=== PATIENT | female | born 1955 | race Caucasian/White ===

== ENCOUNTER → 2024-04-04 09:53 | Outpatient (REF) | payer MEDICARE, SELFPAY ==
[2024-04-04 12:23] LABS: % Basophils 1.5 % (0-2); % Eosinophils 3.1 % (0-6); % Immature Granulocytes 0.4 % (0-0.5); % Lymphocytes 30.9 % (20.5-51.1); % Neutrophils 52.1 % (42.2-75.2); Absolute Basophils 0.1 10^3/uL (0-0.2); Absolute Eosinophils 0.1 10^3/uL (0-0.7); Absolute Lymphocytes 1.4 10^3/uL (1.2-3.4); Absolute Monocytes 0.6 10^3/uL (0.1-0.6); Absolute Neutrophils 2.4 10^3/uL (1.4-6.5); Hematocrit 37.8 % (37.0-47.0); Hemoglobin 12.8 g/dL (12.0-16.0); Mean Corp Hgb Conc. 33.9 g/dL (33.0-37.0); Mean Corpuscular Hgb 30.9 pg (27.0-31.0); Mean Corpuscular Volume 91.3 fL (81.0-99.0); Mean Platelet Volume 9.2 fL (7.4-10.4); Nucleated Red Blood Cells % 0 %; Platelet Count 282 10^3/uL (130-400); Red Blood Cell Count 4.14 10^6/uL (4.20-5.40); Red Cell Dist. Width 13.7 % (11.5-14.5); White Blood Cell Count 4.6 10^3/uL (4.8-10.8)
[2024-04-04 12:32] LABS: ALT (SGPT) 36 U/L (0-35); AST (SGOT) 49 U/L (14-36); Albumin 4.4 g/dl (3.5-5.0); Alkaline Phosphatase 76 U/L (38-126); Blood Urea Nitrogen 9 mg/dl (7-17); Calcium 9.6 mg/dl (8.4-10.2); Carbon Dioxide 30 mmol/L (22-30); Chloride 93 mmol/L (98-107); Glucose 98 mg/dl (70-99); HDL Cholesterol 90 mg/dl; LDL Cholesterol, Calculated 66 mg/dl; Potassium 4.6 mmol/L (3.5-5.1); Sodium 133 mmol/L (135-145); Total Bilirubin 0.4 mg/dl (0.2-1.3); Total Cholesterol 214 mg/dl (50-199); Total Protein 6.9 g/dl (6.3-8.2); Triglyceride 291 mg/dl (10-149); Very Low Density Lipoprotein 58 mg/dl (0-30); eGFR > 60.00
[2024-04-04 12:49] LABS: Urine Albumin Negative (Neg - Trace); Urine Bilirubin Negative (Negative); Urine Character Clear (Clear); Urine Color Yellow; Urine Glucose Negative (Negative); Urine Ketone Negative (Negative); Urine Leukocyte Negative (Negative); Urine Nitrite Negative (Negative); Urine Occult Blood Negative (Negative); Urine Urobilinogen Negative (Neg - 1+)
[2024-04-04 13:01] LABS: TSH 3.95 uIU/ml (0.47-4.68)
[2024-04-04 14:20] LABS: Glycohemoglobin (HgbA1c) 5.1 % (4.0-5.6)
== END ==
LOC: HWLAB 09:53
PROVIDERS: ATTENDING PHYSICIAN Family Medicine
DX: Z00.00 Encounter for general adult medical examination without abnormal findings (principal); Z86.010 Personal history of colon polyps; R73.01 Impaired fasting glucose
CPT/HCPCS: 36415; 80053; 80061; 81003; 83036; 84443; 85025

== ENCOUNTER 2024-06-29 17:21 | Inpatient (IN) | payer MEDICARE, SELFPAY ==
[2024-06-29] VITALS (9 sets, daily range): BP systolic 111–175; BP diastolic 56–93; BMI 38.0; BMI 36.9
[2024-06-29 12:03] LABS: % Basophils 1.4 % (0-2); % Eosinophils 4.1 % (0-6); % Immature Granulocytes 0.6 % (0-0.5); % Lymphocytes 42.4 % (20.5-51.1); % Neutrophils 40.5 % (42.2-75.2); Absolute Basophils 0.1 10^3/uL (0-0.2); Absolute Eosinophils 0.2 10^3/uL (0-0.7); Absolute Lymphocytes 2.1 10^3/uL (1.2-3.4); Absolute Monocytes 0.5 10^3/uL (0.1-0.6); Hematocrit 37.3 % (37.0-47.0); Hemoglobin 12.5 g/dL (12.0-16.0); Mean Corp Hgb Conc. 33.5 g/dL (33.0-37.0); Mean Corpuscular Hgb 32.1 pg (27.0-31.0); Mean Corpuscular Volume 95.9 fL (81.0-99.0); Nucleated Red Blood Cells % 0 %; Platelet Count 243 10^3/uL (130-400); Red Blood Cell Count 3.89 10^6/uL (4.20-5.40); Red Cell Dist. Width 13.1 % (11.5-14.5); White Blood Cell Count 4.9 10^3/uL (4.8-10.8)
[2024-06-29 12:27] LABS: ALT (SGPT) 105 U/L (0-35); AST (SGOT) 137 U/L (14-36); Albumin 4.4 g/dl (3.5-5.0); Alkaline Phosphatase 68 U/L (38-126); Blood Urea Nitrogen 11 mg/dl (7-17); Calcium 9.2 mg/dl (8.4-10.2); Carbon Dioxide 33 mmol/L (22-30); Chloride 90 mmol/L (98-107); Glucose 105 mg/dl (70-99); Potassium 4.1 mmol/L (3.5-5.1); Sodium 131 mmol/L (135-145); Total Bilirubin 0.2 mg/dl (0.2-1.3); Total Protein 6.8 g/dl (6.3-8.2); eGFR > 60.00
[2024-06-29 12:38] LABS: NT-proBNP 273 pg/ml; Troponin I < 0.012 ng/ml
--- NOTE | 2024-06-29 12:51 | ED.GENMED ---
History of Present Illness
General
Chief Complaint: Cardiac Symptoms
Time Seen by Provider: 06/29/24 12:41
History of Present Illness
History of Present Illness:
Patient is a 69-year-old woman with history of hypertension presenting to the emergency department with shortness of breath. Patient states for the past few weeks has been having dyspnea on exertion orthopnea. She has noticed bilateral lower
extremity edema. She is also noticed a 15 pound weight loss in the past month. No chest pain. No travel history malignancy or hemoptysis. She does not have any known heart problems. No fevers chills cough congestion runny nose.
Past History
Past History
ED Past Medical History: HTN
ED Past Surgical History: Gynecological and Other (hernia)
Social History
Tobacco: Non-smoker
Alcohol: Occasional
Living: with family
Phy Exam
Physical Exam
Physical Exam:
GENERAL: in no acute distress
HEENT: normocephalic, extraocular movements intact, moist oral mucosa
NECK: normal inspection
RESPIRATORY: no respiratory distress, crackles at bases bilaterally
CARDIOVASCULAR: regular rate and rhythm
ABDOMEN/: soft, non-distended, non-tender to palpation, no rebound or guarding
EXTREMITIES: Bilateral lower extremity swelling worse to the right lower extremity
NEUROLOGIC: awake and alert, moves all extremities
SKIN: warm
Course
Orders/Labs/Results
Orders:
Orders
06/29/24 11:37
Electrocardiogram (*1) Urgent
Reason for Study: Chest Pain
EKG- Treatment ONCE
06/29/24 11:51
BNP [NT-proBNP] Urgent
Complete Blood Count/With Diff Urgent
Comprehensive Metabolic Panel Urgent
Troponin I Urgent
06/29/24 12:42
CR Chest - 2 Views Urgent
Comment:
Reason For Exam: sob
06/29/24 12:48
Periph Venous Lwr Ext Rt US [US Periph Venous LOWER Ext RT] Urgent
Comment:
Reason For Exam: r/o dvt
06/29/24 13:01
D-Dimer Urgent
Abnormal Lab Results
06/29/24
11:51
RBC 3.89 L 10^6/uL
(4.20-5.40)
MCH 32.1 H pg
(27.0-31.0)
Immature Gran % 0.6 H %
(0-0.5)
Neutrophils % 40.5 L %
(42.2-75.2)
Monocytes % 11.0 H %
(1.7-9.3)
Sodium 131 L mmol/L
(135-145)
Chloride 90 L mmol/L
(98-107)
Carbon Dioxide 33 H mmol/L
(22-30)
Glucose 105 H mg/dl
(70-99)
AST 137 H U/L
(14-36)
ALT 105 H U/L
(0-35)
06/29/24 11:51
06/29/24 11:51
Vital Signs
Initial and Last Documented VS:
Initial Vital Signs
Temp Pulse Resp BP Pulse Ox
97.9 F 87 16 170/93 97
06/29/24 11:41 06/29/24 11:41 06/29/24 11:41 06/29/24 11:41 06/29/24 11:41
Last Documented Vital Signs
Temp Pulse Resp BP Pulse Ox
97.9 F 80 13 138/78 99
06/29/24 11:41 06/29/24 13:30 06/29/24 13:30 06/29/24 13:02 06/29/24 13:03
MDM/Problems Addressed
Differential Diagnosis Includes:
Patient is a 69-year-old woman presenting to the emergency department dyspnea exertion orthopnea and weight gain. Vitals are notable for hypertension and exam does show crackles at the bases as well as bilateral lower extremity edema worse on the
right side. Differential consists of new onset heart failure versus atypical ACS or pneumonia. With the asymmetrical leg swelling could be DVT. Will check blood work EKG chest x-ray ultrasound.
*Critical Care Note
Total Time (30-74mins, 75-104mins- exclusive of procedures): Not Applicable
Update Note
Update Note:
Blood work negative dimer troponin BNP is not elevated. DVT study negative. Upon ambulation patient to become tachypneic with a drop in her oxygen to 88%. Chest x-ray per my interpretation with no obvious focal opacity and mild cephalization of
her pulmonary vessels. Discussed with hospitalist who accepted patient to their service.
ED Attending Note
-
Portions of this chart may have been created with voice recognition software.� Occasional wrong word or��sound alike� substitutions may have occurred due to the inherent limitations of voice recognition software.
Discharge Plan
Departure
Patient Disposition: Admit
Date of Disposition: 06/29/24
Time of Disposition: 14:46
Presentation/result/management discussed w/ accepting MD/DO: Hospitalist
Discharge Problem:
Shortness of breath
Prescriptions:
No Action
sertraline [Zoloft] 100 MG tablet
150 mg PO DAILY
multivitamin [Daily Multiple] 1 EACH tablet
1 ea PO DAILY
famotidine 40 MG tablet
40 mg PO HS
amlodipine 5 MG tablet
5 mg PO DAILY
oxycodone-acetaminophen 5 MG/325 MG tablet
1 tab PO Q4HPRN PRN (Reason: pain) Qty: 8 0RF
Referrals:
Indigo Esteban DO [Family Provider] -
Interventions
Interventions:
*Risk Screen - Suicide Last Done: 06/29/24 11:43
*General Assessment Last Done: 06/29/24 13:02
*Neglect/Abuse Screening Last Done: 06/29/24 11:43
ED- Fall Risk Assessment Last Done: 06/29/24 13:03
*ED COVID-19 Vaccine History Last Done: 06/29/24 13:02
ED- Pulmonary Assessment Last Done: 06/29/24 13:03
ED- Cardiac Assessment Last Done: 06/29/24 13:03
Discharge Date and Time
Print Language: MARTINIQUAIS
[2024-06-29 13:29] LABS: D-Dimer < 0.27 ug/mlFEU (0.00-0.50)
--- NOTE | 2024-06-29 15:30 | HPS.HSE ---
Family Physician
-
Family Physician: Indigo Esteban
Chief Complaint
-
BARFIELD, orthopnea, nonproductive cough, weight gain
History of Present Illness
69-year-old female complaining of dyspnea on exertion with orthopnea, nonproductive cough over the past few weeks along with bilateral lower extremity edema and 15-18 pound weight gain in the past 2 weeks unintentional. She reports she was a
former alcoholic in her early teens to 20s. She reports she stopped when she had children then picked up drinking at age 60 when her . She reports she is currently drinking 750 mL bottle of wine daily and wakes up in the a.m. with hand
tremors that resolve when she starts drinking alcohol. She states her last drink was last evening 06/28/2024 at 2300. She denies any history of alcohol withdrawal seizures. She denies current headache, sore throat, fever, chills, chest pain,
palpitations, abdominal pain, nausea, vomiting, diarrhea, blood in urine or stool
She has past medical history of hypertension, alcohol abuse, obesity, GERD, anxiety/depression, ex-smoker, gastric bypass osteoarthritis, glaucoma.
Medical History
Past Medical History
Past Medical History: Reports Other
Additional Past Medical History:
hypertension
GERD
gastric bypass
anxiety/depression
ex-smoker
osteoarthritis
glaucoma
Past Surgical History: Reports Other
Additional Past Surgical History:
section x 3
Multiple hernia repairs
Hysterectomy
Appendectomy
Ovarian cyst removal
Gastric bypass
Dental/oral surgery
Social History
Tobacco: Former Smoker (2 to 3 pack/day quit 30 years ago smoked for 30 years)
Alcohol: Daily (750 mL wine)
Drug: None
Personal: (2014)
Living: Alone
Employment: Retired
Family History
Family History: Early CAD (Father [place] age 39 history HTN, sister CAD cardiac stents late 60s) and Other (Mother age 63 CVA multiple, COPD, brother HTN)
Allergies / Home Medications
Allergies reflects when Allergies were last updated in [facility].
Home Medications with original date entered in [facility]
Allergy/Medication List:
Allergies
Allergy/AdvReac Type Severity Reaction Status Date / Time
sulfamethoxazole Allergy Itching Verified 11/23/16 17:32
[From Bactrim]
trimethoprim [From Bactrim] Allergy Itching Verified 11/23/16 17:32
Home Medications
ascorbic acid 30 mg-collagen, hydrolyzed 833.3 mg tablet (Collagen Skin Renewal) 1 tab PO DAILY 06/29/24
duloxetine 60 mg capsule,delayed release (Cymbalta) 60 mg PO DAILY 06/29/24
hydrochlorothiazide 25 mg tablet 25 mg PO DAILY 06/29/24
metoprolol succinate 50 mg tablet,extended release 24 hr (Toprol XL) 50 mg PO DAILY 06/29/24
mirtazapine 15 mg tablet 15 mg PO DAILY 06/29/24
therapeutic multivitamin 1 tab PO DAILY 06/29/24
valsartan 160 mg tablet 160 mg PO DAILY 06/29/24
Review of Systems
-
History Source: Patient and Family (Son at bedside)
A 12 point ROS was completed and negative except as noted: Yes
Constitutional: Reports Weight Gain (15-18 pounds past 2 weeks); Denies Chills
EENT: Denies Sore Throat or Runny Nose
Respiratory: Reports Cough (Nonproductive) and Trouble Breathing (BARFIELD/orthopnea)
Cardiac: Denies Chest Pain, Diaphoresis, Palpitations or Syncope
Abdomen/GI: Denies Abdominal Pain, Nausea, Vomiting, Diarrhea, Constipated, Bloody Stools or Black Stools
: Denies Dysuria, Frequency, Flank Pain, Incontinence, Difficulty Voiding, Urgency or Bleeding
Musculoskeletal: Reports Edema (+1 bilaterally right greater than left); Denies Joint Pain
Skin: Denies Itching or Rash
Neurological: Denies Dizzy, Headache or Weakness
Endocrine: Reports No Symptoms
Hematologic/Lymphatic: Reports No Symptoms
Psych: Reports Calm
Physical Exam
Vital Signs
Vital Signs
Temp Pulse Resp BP Pulse Ox
97.9 F 93 13 138/78 98
06/29/24 11:41 06/29/24 14:43 06/29/24 13:30 06/29/24 13:02 06/29/24 14:43
Physical Exam
General: Comfortable, Conversant and Other (No active tremors); No Pain, Fever or Chills
HEENT: NormoCephalic, Anicteric, Moist mucous membranes, PERRLA, [place] Conjunctivae and No Ptosis
Respiratory: Clear; No Wheezes, Rales or Rhonchi
Cardiac: S1/S2, Regular Rhythm, Peripheral Edema (+1 bilateral right greater than left) and JVD; No Murmur, Rub, Gallop or Calf Tenderness
Breast: Deferred by me
GI: Soft, Non Tender, Non Distended, Normal Bowel Sounds and Other (Positive hepatomegaly on exam negative splenomegaly palpated)
Rectal: Deferred by Provider
Genito-urinary: Deferred by me
Musculoskeletal: No Clubbing, No Cyanosis, Edema, Left Lower Extremity (+1 bilateral right greater than left) and Edema, Right Lower Extremity (+1 bilateral right greater than left); No Edema, Left Upper Extremity or Edema, Right Upper Extremity
Skin: Warm and Dry; No Rash or Jaundice
Neuro: AO x 3, No Motor Deficits, Nonfocal/grossly intact and No Sensory Deficits; No Slurred Speech, Facial Droop, Tremors or Sedated
Psych: Calm
Laboratory Results
-
06/29/24 11:51
06/29/24 11:51
Laboratory Results
Total Bilirubin 0.2 mg/dl (0.2-1.3) 06/29/24 11:51
AST 137 U/L (14-36) H 06/29/24 11:51
ALT 105 U/L (0-35) H 06/29/24 11:51
Alkaline Phosphatase 68 U/L (38-126) 06/29/24 11:51
Troponin I < 0.012 ng/ml 06/29/24 11:51
Impression/Plan
-
Impression/plan:
Admit to telemetry
#Acute BARFIELD with hypoxia concern for possible Acute heart failure versus alcoholic cardiomyopathy
88% pulse ox on ambulation
-BNP 273
-I/O, daily weights
-2D echo
-IV Lasix 40 mg daily
-Consult CBC cardiology
-Follow CBC, CMP
-Consult PT/OT/case management
EKG: NSR 83 bpm, QTc 430 MS no significant change from October 2016
Venous Doppler: Right lower extremity: No DVT. Moderate to large Hankins's cyst within the right popliteal fossa
#Acute alcohol abuse
-Drinks 750 mL bottle of wine daily since age 60 when her did have brief period of sober and a 6 to 8 months 8 years ago
-Last drink was 06/28/2024 at 2300
-Patient reports wakes up in a.m. with hand tremors that resolved when she starts drinking again
-MSAs screen with protocol IV thiamine, IV folate
-Check alcohol level, UDS, check INR
#Acute transaminitis likely secondary to alcohol abuse
AST 137, ALT 105, alk phos 68
-HOLD Cymbalta
-Will check Ultrasound abdomen due to Hepatomegaly on exam
#Hyponatremia due to beer Potomania
NA 131
-Follow BMP
#Ex-smoker
Reports smokes 2 to 3 pack a day x 30 years quit 30 years ago
#Hypertension
-Continue metoprolol succinate 50 mg daily, valsartan 160 mg daily, HCTZ 25 mg daily
#GERD
-Gastric bypass
#Anxiety/depression
HOLD Cymbalta due to transaminitis
-Continue mirtazapine 15 mg daily
#Class II obesity due to excess calorie consumption�BMI 38
-Affects all aspects of care
-Weight loss recommended
-Healthy heart low-fat diet
Other PMH:
osteoarthritis
glaucoma
DVT prophylaxis
Subcu Lovenox
Full code
--- NOTE | 2024-06-29 16:17 | W.PN.UPDATE ---
Update Note
Progress Note Update
This is an addendum to the H&P written by Gilda Stark on 06/29/2024. Patient seen and examined independently with [facility].
69-year-old female past medical history of hypertension, alcohol use disorder, anxiety/depression, GERD, gastric bypass, former smoker, osteoarthritis, presenting with shortness of breath, 1580 pound weight gain in the past 2 weeks.
Patient drinks 750 cc of wine every night. Last drink was yesterday.
Labs show chronic hyponatremia, transaminitis. Chest x-ray report pending. Cardiac BNP of 200 however patient obese. Concern for acute CHF exacerbation possibly alcohol related cardiomyopathy. Lasix 40 IV daily, check echo, cardiology.
Bilateral venous ultrasound negative for DVT.
Thiamine and folate, alcohol withdrawal protocol. Phenobarbital protocol started. Check abdominal ultrasound. Transaminitis.
--- NOTE | 2024-06-29 16:44 | CON.CAR ---
Consultation
Consultation Request
Date/Time Consultation Requested: 06/29/2024
Date/Time Consultation Performed: 06/29/2024
Requesting Provider: Gilda Stark
Performing Provider: Dr. Sanders
Reason for Consultation: sob
Medical History
-
Chief Complaint: Weight gain and lower extremity edema
History of Present Illness:
69-year-old female with a past medical history of hypertension and alcohol abuse drinking at least a bottle of wine daily for the last 8 to 9 years presents with increased dyspnea on exertion. She states the other day she noticed she was short of
breath when walking, she decided to weigh herself and her weight had increased 15 to 20 pounds in the last 2-1/2 weeks. She does not watch her salt intake. She feels like her abdomen is distended. She has had a poor appetite despite the weight
gain. She denies any orthopnea or PND. She denies any chest pain or pressure. She lives at home with her son and his with their child.
Past Medical History
Past Medical History: GERD and HTN
Social History
Tobacco: Non-Smoker
Alcohol: Chronic Alcoholic
Living: With Family
Family History
Family History: Early CAD (Her mother had a stroke at 63, her father at the age of 39 from cardiac arrest, 2 sisters have CAD)
Allergies / Home Medications
Allergy/AdvReac Type Severity Reaction Status Date / Time
sulfamethoxazole Allergy Itching Verified 11/23/16 17:32
[From Bactrim]
trimethoprim [From Bactrim] Allergy Itching Verified 11/23/16 17:32
�Medication �Instructions �Recorded �Confirmed �Type
ascorbic acid 30 mg-collagen, 1 tab PO DAILY 06/29/24 06/29/24 History
hydrolyzed 833.3 mg tablet
(Collagen Skin Renewal)
duloxetine 60 mg capsule,delayed 60 mg PO DAILY 06/29/24 06/29/24 History
release (Cymbalta)
hydrochlorothiazide 25 mg tablet 25 mg PO DAILY 06/29/24 06/29/24 History
metoprolol succinate 50 mg 50 mg PO DAILY 06/29/24 06/29/24 History
tablet,extended release 24 hr
(Toprol XL)
mirtazapine 15 mg tablet 15 mg PO DAILY 06/29/24 06/29/24 History
therapeutic multivitamin 1 tab PO DAILY 06/29/24 06/29/24 History
valsartan 160 mg tablet 160 mg PO DAILY 06/29/24 06/29/24 History
Review of Systems
-
All other systems: Negative unless noted
Physical Exam
Vital Signs
Temp Pulse Resp BP Pulse Ox
97.9 F 82 15 131/78 98
06/29/24 11:41 06/29/24 15:30 06/29/24 15:30 06/29/24 15:00 06/29/24 15:30
Lab Results
06/29/24 11:51
06/29/24 11:51
Troponin I < 0.012 ng/ml 06/29/24 11:51
Odu-G-Uxzbbwipruv Pept 273 pg/ml 06/29/24 11:51
Physical Exam
General: Well Developed, Well Nourished and No Apparent Distress
Respiratory: Clear; Negative Wheezes, Crackles or Rhonchi
Cardiac: S1/S2, Regular Rhythm, Irregular Rhythm and Murmur (1 a 6 systolic murmur in all areas)
GI: Soft, Non Tender and Distended (Verse obese)
Musculoskeletal: No Clubbing, No Cyanosis and Edema (1+ in the legs bilaterally)
Neuro: AO x 3
Impression / Plan
-
69-year-old female with a past medical history of hypertension and alcohol abuse presents with weight gain, poor appetite and dyspnea on exertion
Volume overload: Multiple etiologies are possible at this time including heart failure versus liver failure.
She had a normal proBNP and chest x-ray is without any interstitial edema and a normal cardiac silhouette. That said with her hypertension HFpEF is a possibility
LFTs are elevated and her abdomen appears distended. Certainly this could be due to alcoholic cirrhosis but albumin is normal.
Agree with gentle IV diuresis with intensive monitoring
Echocardiogram and abdominal ultrasound ordered.
Hypertension: Continue beta-kalyn and valsartan, with hyponatremia would hold hydrochlorothiazide and lieu of Lasix
Hypervolemic hyponatremia: Follow with diuresis
EtOH abuse: Complete cessation recommended, withdrawal is likely.
Hopefully if she can get through withdrawal inpatient, then can be committed to staying alcohol free moving forward.
Will follow.
Data Reviewed
-
EKG: Tracing Personally Visualized and interpreted (Normal sinus rhythm)
Radiology: Image Personally Visualized and interpreted (No signs of heart failure)
Medical Tests (Nuc Med, Echo etc): Report Reviewed by me (TTE 08/01/2018 normal biventricular size and systolic function, mild LVH, no significant valve disease/ETT 09/03 exercised 6 minutes without EKG changes, did have chest pressure at 4 minutes)
Labs: Labs Reviewed by me (Sodium 131 chloride 98 carbon oxide 33 AST 137 ALT 105 troponin less than 0.012 proBNP 273 albumin 4.4 total protein 6.8 hemoglobin 12.5)
[2024-06-29 16:58] LABS: Alcohol 118 mg/dl
[2024-06-29] MEDS: LASIX 40 MG IV (17:34)
[2024-06-29 18:17] LABS: Amphetamines Negative (Negative); Barbiturates Negative (Negative); Benzodiazepines Negative (Negative); Buprenorphine Negative (Negative); Cocaine Negative (Negative); Marijuana Negative (Negative); Methadone Negative (Negative); Methamphetamines Negative (Negative); Opiates Negative (Negative); Phencyclidine Negative (Negative); Tricyclic Antidepressants Negative (Negative)
[2024-06-29 18:57] LABS: Urine Albumin Negative (Neg - Trace); Urine Bilirubin Negative (Negative); Urine Character Clear (Clear); Urine Color Straw; Urine Glucose Negative (Negative); Urine Ketone Negative (Negative); Urine Leukocyte Negative (Negative); Urine Nitrite Negative (Negative); Urine Occult Blood Negative (Negative); Urine Specific Gravity 1.005 (<1.030); Urine Urobilinogen Negative (Neg - 1+)
[2024-06-29] MEDS: PHENOBARBITAL 104 MG IV (19:25)
[2024-06-29 19:49] LABS: APTT 25.6 Sec (23.4-35.0); INR 0.99; PT 13.4 Sec (11.4-14.6)
[2024-06-29 19:50] LABS: GGTP 124 U/L (12-43)
[2024-06-29 19:56] LABS: B-Hydroxybutyrate 0.13 mmol/L (0.02-0.27)
[2024-06-29] MEDS: PHENOBARBITAL 97.5 MG IV (21:46)
[2024-06-29] MEDS: THIAMINE INJECTION 200 MG IV (23:05)
[2024-06-30] VITALS (7 sets, daily range): BP systolic 122–151; BP diastolic 61–86; PULSE 82; O2SAT 97; BMI 36.4
[2024-06-30] MEDS: REMERON 15 MG PO (07:29)
[2024-06-30] MEDS: FOLVITE 1 MG PO (07:29)
[2024-06-30] MEDS: TOPROL XL 50 MG PO (07:29)
[2024-06-30] MEDS: THERAGRAN 1 TABLET PO (07:29)
[2024-06-30] MEDS: THIAMINE INJECTION 200 MG IV ×3 (07:29→23:11)
[2024-06-30] MEDS: ORETIC 25 MG PO (07:29)
[2024-06-30] MEDS: DIOVAN 160 MG PO (07:29)
[2024-06-30] MEDS: PHENOBARBITAL 97.5 MG IV ×3 (07:30→21:19)
[2024-06-30 07:44] LABS: % Basophils 1.2 % (0-2); % Eosinophils 2.8 % (0-6); % Immature Granulocytes 0.4 % (0-0.5); % Lymphocytes 30.8 % (20.5-51.1); % Monocytes 13.4 % (1.7-9.3); % Neutrophils 51.4 % (42.2-75.2); Absolute Basophils 0.1 10^3/uL (0-0.2); Absolute Eosinophils 0.2 10^3/uL (0-0.7); Absolute Lymphocytes 1.8 10^3/uL (1.2-3.4); Absolute Monocytes 0.8 10^3/uL (0.1-0.6); Absolute Neutrophils 2.9 10^3/uL (1.4-6.5); Hematocrit 39.3 % (37.0-47.0); Mean Corp Hgb Conc. 33.1 g/dL (33.0-37.0); Mean Corpuscular Hgb 32.5 pg (27.0-31.0); Mean Corpuscular Volume 98.3 fL (81.0-99.0); Mean Platelet Volume 8.6 fL (7.4-10.4); Nucleated Red Blood Cells % 0 %; Platelet Count 266 10^3/uL (130-400); Red Cell Dist. Width 13.3 % (11.5-14.5); White Blood Cell Count 5.7 10^3/uL (4.8-10.8)
[2024-06-30 08:18] LABS: ALT (SGPT) 97 U/L (0-35); AST (SGOT) 123 U/L (14-36); Albumin 4.5 g/dl (3.5-5.0); Alkaline Phosphatase 77 U/L (38-126); Blood Urea Nitrogen 14 mg/dl (7-17); Calcium 9.3 mg/dl (8.4-10.2); Carbon Dioxide 38 mmol/L (22-30); Chloride 90 mmol/L (98-107); Estimated Creatinine Clearance 55 ml/min; Glucose 105 mg/dl (70-99); HDL Cholesterol 108 mg/dl; LDL Cholesterol, Calculated 71 mg/dl; Potassium 4.1 mmol/L (3.5-5.1); Sodium 134 mmol/L (135-145); Total Bilirubin 0.8 mg/dl (0.2-1.3); Total Cholesterol 197 mg/dl (50-199); Triglyceride 93 mg/dl (10-149); Very Low Density Lipoprotein 18 mg/dl (0-30); eGFR > 60.00
[2024-06-30] MEDS: LASIX 40 MG IV (08:49)
--- NOTE | 2024-06-30 09:32 | W.PN.CD ---
Today's Communication / Plan
-
IV diuresis
Impression / Plan
-
69-year-old female with a past medical history of hypertension and alcohol abuse presents with weight gain, poor appetite and dyspnea on exertion
Volume overload: Multiple etiologies are possible at this time including heart failure versus liver failure.
She had a normal proBNP and chest x-ray is without any interstitial edema and a normal cardiac silhouette. That said with her hypertension HFpEF is a possibility
LFTs are elevated and her abdomen appears distended.
Echocardiogram and abdominal ultrasound ordered.
Cont IV diuresis today, likely transition to PO lasix MWF tomorrow
Hypertension: Continue beta-kalyn and valsartan, with hyponatremia would hold hydrochlorothiazide and lieu of Lasix
Hypervolemic hyponatremia: Follow with diuresis
EtOH abuse: Complete cessation recommended, withdrawal is likely.
Hopefully if she can get through withdrawal inpatient, then can be committed to staying alcohol free moving forward.
Will follow.
Physical Exam
Vital Signs/Labs
Vital Signs
Temp Pulse Resp BP Pulse Ox
98.0 F 83 16 125/63 96
06/30/24 07:42 06/30/24 07:42 06/30/24 07:42 06/30/24 07:42 06/30/24 07:42
06/29/24 06/30/24 07/01/24
06:59 06:59 06:59
Actual Weight 180 lb 1.6 oz
06/30/24 06:46
06/30/24 06:46
PT 13.4 Sec (11.4-14.6) 06/29/24 19:22
INR 0.99 06/29/24 19:22
APTT 25.6 Sec (23.4-35.0) 06/29/24 19:22
Magnesium 2.0 mg/dl (1.6-2.3) 06/29/24 19:22
Triglycerides 93 mg/dl (10-149) 06/30/24 06:46
LDL Cholesterol, Calc 71 mg/dl 06/30/24 06:46
VLDL Cholesterol, Calc 18 mg/dl (0-30) 06/30/24 06:46
HDL Cholesterol 108 mg/dl 06/30/24 06:46
06/29/24
11:51
Qwt-I-Jzhfrhxzanv Pept 273
LAB Results
06/29/24
11:51
Troponin I < 0.012
Physical Exam
Constitutional: No acute distress and Comfortable
Cardiovascular: Rhythm & rate is regular, Pedal edema present and Systolic murmur present
Respiratory: Respiratory effort normal and Lungs clear to auscul.
GI: Soft
Neuro/Psych: AO x 3
Data Reviewed
-
Date of Service: June 30, 2024
EKG: Tracing Personally Visualized and interpreted (sr)
Echo: Report Reviewed by me
Labs: Labs Reviewed by me
--- NOTE | 2024-06-30 13:48 | W.PN.HOSP.TC ---
Addendum entered and electronically signed by Shaan Melgar DO, Resident 07/03/24 19:57:
Alcohol Abuse with Concern for Withdrawal
- Folate, thiamine supplementation
- Monitor MSAS
- Alcohol Withdrawal protocol
- Phenobarbital Taper
Addendum entered and electronically signed by Kaitlyn Joy MD 06/30/24 16:57:
I saw and evaluated the patient independently. I reviewed the resident�s note and agree with findings and plan as documented by Dr. Melgar.
GENERAL: well developed, well nourished, female in no apparent distress
HEENT: NC/AT--O2 NC [address]
HEART: regular rate and rhythm, +S1, +S2
LUNGS : clear to auscultation bilaterally
ABDOM: soft, nontender, nondistended, + bowel sounds
EXT: no cyanosis, clubbing, or edema
NEUROLOGIC: no obvious tremors noted
acute dyspnea--especially on exertion, with acute hypoxemic resp insufficiency--ECHO reveals hyperdynamic with EF 70-75%--could be due to ETOH cardiomyopathy--apprec cards--cont IV lasix for diuresis (?high output heart failure due to ETOH)--asses
for home O2
alcohol use/abuse--watch for worsening DTs--has tremors--phenobarbital seems to be helping per pt--cont thiamine, folate, MSAS--needs to quit
alcoholic liver disease--needs to quit ETOH--US shows alcoholic steatosis--trend LFTs
hyponatremia--SSRI? plus ETOH--improved
anxiety/depression--hold cymbalta--cont mirtazipine
DVT proph
code status -- FULL CODE
Original Note:
Today's Communication/Plan
-
Cardiac ECHO/Abdominal US today. PT/OT. Continue to trend CMP/MSAS. Continue Phenobarbital taper/alcohol withdrawal protocol and supplementation. Continue Lasix.
Assessment / Plan
Assessment / Plan
1. Acute Dyspnea on Exertion
- ED: BNP 273, CXR negative, US LE neg; EKG no significant change from October 2016
- Dilated cardiomyopathy 2/2 alcohol use disorder vs. HFpEF; follow up Echo results
- Continue IV Lasix 40mg; volume overload is improving; switch to PO prior to discharge.
- Appreciate cards
- PT/OT Consult for ambulatory monitoring
2. Acute alcohol abuse
- Has been drinking 750 cc of wine daily for 8 to 9 years
- Last drink was on 06/28 2024 at 2300
- ED: AST 137, ALT 105, alk phos 68, GGT 124, EtOH quant 118; PT PTT INR WNL
- Continue thiamine, folate, alcohol withdrawal protocol; MSAS trending down from 4 admission to 0 this morning.
- Continue phenobarbital taper
3. Alcoholic Liver Disease
-Abdominal ultrasound shows findings of alcoholic steatosis.
-Would recommend close outpatient follow-up and continued abstinence in the setting of liver injury and potential alcohol-related cardiomyopathy
-Hold Cymbalta
-Continue to trend liver enzymes
4. Hypertension
-Continue metoprolol, valsartan. Hold HCTZ. Continued gentle diuresis with Lasix. Consider discharge on p.o. Lasix.
5. Hypochloremic Hyponatremia
- Likely 2/2 beer potomania
- Sodium level 131 on admssion; improved to 134.
- Continue to trend CMP.
6. Anxiety/Depression
- Continue to hold Cymbalta in the setting of transamitis.
- Continue Mirtazipine.
Full Code/SubQ Lovenox
Anticipated Discharge: 24 - 48 hours
Subjective/Interval History
-
Date of Service: June 30, 2024
Patient states that she is feeling better today from both respiratory and lower extremity swelling standpoint. Otherwise denies any acute complaints including chest pains, shortness of breath, or dizziness. Notes that she is unable to assess if she
gets dyspnic with exertion since she only needs to move around short distances in her room, but is able to ambulate to and from the bathroom without experiencing any shortness of breath. From an alcohol withdrawal standpoint, denies confusion,
hallucinations, or tremor. Also denies nausea, vomiting, changes in bowel habits, and endorses a normal appetite.
Objective Data
-
Labs:
Laboratory Results
06/30/24
06:46
WBC 5.7
Hgb 13.0
Hct 39.3
Plt Count 266
Sodium 134 L
Potassium 4.1
Chloride 90 L
Carbon Dioxide 38 H
BUN 14
Creatinine 0.9
Glucose 105 H
Calcium 9.3
Total Bilirubin 0.8
AST 123 H
ALT 97 H
Alkaline Phosphatase 77
Vital Signs:
Vital Signs
Temp Pulse Resp BP Pulse Ox
98.2 F 78 16 122/72 98
06/30/24 11:10 06/30/24 11:10 06/30/24 11:10 06/30/24 11:10 06/30/24 11:10
I&O
06/29/24 06/30/24 07/01/24
06:59 06:59 06:59
Intake Total 480 / 480
Balance 480 / 480
Review of Systems
-
History Source: Patient
Constitutional: Reports No Symptoms
Respiratory: Reports No Symptoms
Cardiac: Reports No Symptoms
Abdomen/GI: Reports No Symptoms
Musculoskeletal: Reports No Symptoms
Neuro: Reports No Symptoms
Physical Exam
-
General: Well Developed, Well Nourished, No Apparent Distress, Comfortable and Conversant
HEENT: Normocephalic and Atraumatic
Respiratory: Clear to Auscultation
Cardiac: Regular Rhythm, S1/S2 and Murmur (systolic)
GI: Soft, Nontender and Distended (mild)
Musculoskeletal: Other (trace edema, improved. )
Skin: Warm and Dry
Neuro: Awake, Alert and Oriented
Psych: Calm
Data Reviewed
-
Ultrasound: Report Reviewed by me
Labs: Labs Reviewed by me and Discussed with Patient
--- NOTE | 2024-06-30 13:55 | CM ---
Patient seen at bedside with physicians. Patient stated that she lives with her son and daughter in law/granddaughter. Patient has no DME and home has a ramp per patient. Patient uses PCP Deloris Hu and her PCP is Dr. Esteban. Patient stated
that she is open to seeing [facility] and clarified that she is not driving. Patient has no home O2 and currently was on O2. Patient states she had been at [facility] for treatment in the past but was unable to confirm name. CM called to [facility] and they
will see patient today. CM will continue to follow for discharge planning needs.
Plan; home with family vs treatment [facility] to assess.
--- NOTE | 2024-06-30 16:06 | PTOTSP ---
The patient ambulated 100 feet x2 with no device on room air, SpO2 remained stable at 99% on room air with activity. Patient feels she is at her baseline and denies concerns regarding mobility upon return home. No PT needs identified at this time,
will sign off.
[2024-07-01] VITALS (8 sets, daily range): BP systolic 103–127; BP diastolic 56–77; PULSE 60; O2SAT 94; BMI 36.3
[2024-07-01] MEDS: THERAGRAN 1 TABLET PO (07:28)
[2024-07-01] MEDS: ORETIC 25 MG PO (07:28)
[2024-07-01] MEDS: FOLVITE 1 MG PO (07:28)
[2024-07-01] MEDS: TOPROL XL 50 MG PO (07:28)
[2024-07-01] MEDS: REMERON 15 MG PO (07:28)
[2024-07-01] MEDS: PHENOBARBITAL 97.5 MG IV ×2 (07:28→16:44)
[2024-07-01] MEDS: DIOVAN 160 MG PO (07:28)
[2024-07-01] MEDS: THIAMINE INJECTION 200 MG IV ×3 (07:29→23:58)
[2024-07-01] MEDS: LASIX 40 MG IV (07:29)
[2024-07-01 07:31] LABS: % Basophils 1.1 % (0-2); % Eosinophils 3.1 % (0-6); % Immature Granulocytes 0.6 % (0-0.5); % Lymphocytes 25.3 % (20.5-51.1); % Monocytes 15.8 % (1.7-9.3); % Neutrophils 54.1 % (42.2-75.2); Absolute Basophils 0.1 10^3/uL (0-0.2); Absolute Eosinophils 0.2 10^3/uL (0-0.7); Absolute Lymphocytes 1.7 10^3/uL (1.2-3.4); Absolute Neutrophils 3.5 10^3/uL (1.4-6.5); Hematocrit 36.8 % (37.0-47.0); Hemoglobin 12.3 g/dL (12.0-16.0); Mean Corp Hgb Conc. 33.4 g/dL (33.0-37.0); Mean Corpuscular Hgb 32.6 pg (27.0-31.0); Mean Corpuscular Volume 97.6 fL (81.0-99.0); Mean Platelet Volume 8.6 fL (7.4-10.4); Nucleated Red Blood Cells % 0 %; Platelet Count 240 10^3/uL (130-400); Red Blood Cell Count 3.77 10^6/uL (4.20-5.40); Red Cell Dist. Width 13.1 % (11.5-14.5); White Blood Cell Count 6.5 10^3/uL (4.8-10.8)
[2024-07-01 07:54] LABS: ALT (SGPT) 75 U/L (0-35); AST (SGOT) 84 U/L (14-36); Albumin 4.1 g/dl (3.5-5.0); Alkaline Phosphatase 66 U/L (38-126); Blood Urea Nitrogen 28 mg/dl (7-17); Calcium 9.1 mg/dl (8.4-10.2); Carbon Dioxide 35 mmol/L (22-30); Chloride 89 mmol/L (98-107); Estimated Creatinine Clearance 45 ml/min; Glucose 114 mg/dl (70-99); Potassium 3.8 mmol/L (3.5-5.1); Sodium 133 mmol/L (135-145); Total Bilirubin 0.6 mg/dl (0.2-1.3); Total Protein 6.4 g/dl (6.3-8.2); eGFR 54.39
--- NOTE | 2024-07-01 07:54 | W.PN.CD ---
Today's Communication / Plan
-
Lasix PRN 40 mg for weight gain 3-5 lbs in a day/wk
We will sign off please call with questions/concern
Impression / Plan
-
69-year-old female with a past medical history of hypertension and alcohol abuse presents with weight gain, poor appetite and dyspnea on exertion
Volume overload: Multiple etiologies are possible at this time including heart failure versus liver failure.
She had a normal proBNP and chest x-ray is without any interstitial edema and a normal cardiac silhouette. That said with her hypertension HFpEF is a possibility
LFTs are elevated and her abdomen appears distended.
Echocardiogram and abdominal ultrasound ordered.
Lasix PRN 40 mg for weight gain 3-5 lbs in a day/wk
Hypertension: Continue beta-kalyn and valsartan, with hyponatremia would hold hydrochlorothiazide and lieu of Lasix
Hypervolemic hyponatremia: Follow with diuresis
EtOH abuse: Complete cessation recommended, withdrawal is likely.
Hopefully if she can get through withdrawal inpatient, then can be committed to staying alcohol free moving forward.
Subjective: Much improved volume status breathing improved
Echo: CONCLUSIONS
Normal left ventricular size with hyperdynamic systolic function and no
regional wall motion abnormalities. LVEF 70-75%.
Moderate concentric left ventricular hypertrophy.
Mid LV-cavitary gradient of at least 14 mmHg.
Normal right ventricular size and function.
Mild aortic stenosis.
Mild tricuspid regurgitation. Normal PASP.
No significant change compared to prior echocardiogram on 08/19/2018.
Physical Exam
Vital Signs/Labs
Vital Signs
Temp Pulse Resp BP Pulse Ox
98.1 F 74 14 123/73 97
07/01/24 07:37 07/01/24 07:37 07/01/24 07:37 07/01/24 07:37 07/01/24 07:37
06/30/24 07/01/24 07/02/24
06:59 06:59 06:59
Actual Weight 180 lb 1.6 oz 179 lb 8 oz
07/01/24 06:50
07/01/24 06:50
PT 13.4 Sec (11.4-14.6) 06/29/24 19:22
INR 0.99 06/29/24 19:22
APTT 25.6 Sec (23.4-35.0) 06/29/24 19:22
Magnesium 2.0 mg/dl (1.6-2.3) 06/29/24 19:22
Triglycerides 93 mg/dl (10-149) 06/30/24 06:46
LDL Cholesterol, Calc 71 mg/dl 06/30/24 06:46
VLDL Cholesterol, Calc 18 mg/dl (0-30) 06/30/24 06:46
HDL Cholesterol 108 mg/dl 06/30/24 06:46
06/29/24
11:51
Vcb-M-[id number] Pept 273
LAB Results
06/29/24
11:51
Troponin I < 0.012
Physical Exam
Constitutional: No acute distress and Comfortable
EENT: Anicteric
Cardiovascular: Rhythm & rate is regular and Pedal edema is absent
Respiratory: Respiratory effort normal and Lungs clear to auscul.
GI: Soft
Neuro/Psych: AO x 3
Data Reviewed
-
Date of Service: July 01, 2024
EKG: Tracing Personally Visualized and interpreted (sr)
Echo: Report Reviewed by me
Labs: Labs Reviewed by me
--- NOTE | 2024-07-01 09:16 | PTOTSP ---
pt currently demonstrates ability to complete simple ADLs, functional transfers, ambulation with supervision to no assistance. no acute OT needs identified at this time, will sign off.
--- NOTE | 2024-07-01 10:04 | W.HF.CON ---
Heart Failure
- LV Function
Left ventricular function study result: LV Ejection fraction >/= 50%
Ejection Fraction Percentage: 70-75
- ARNI
Patient already on ARNI: No
Heart Failure ARNI Not Indicated: LV Ejection Fraction >/= 40%
- ACEI/ARB
Patient already on ACEI/ARB: Yes
- Beta Moiz
Patient already on Evidence Based Beta Moiz: Yes
- Mineralocorticord Receptor Antagonist
Patient already on MRA: No
Heart Failure MRA Not Indicated: LV Ejection Fraction > 40%
- SGLT-2 Inhibitor
Patient already on SGLT-2 Inhibitor: No
Heart Failure SGLT-2 Inhibitor Not Indicated: LV Ejection Fraction >40%
- NYHA CHF Classification
NYHA CHF Classification Level: Class III - Symptoms w/ min exertion, interferes w/ nml daily activity
- ACC/AHA Stage
ACC/AHA Stage: Stage C: Symptomatic Heart Failure
--- NOTE | 2024-07-01 14:59 | W.PN.HOSP.TC ---
Addendum entered and electronically signed by Shaan Meglar DO, Resident 07/03/24 19:54:
Acute Kidney Injury
- Creatinine rise of 0.4 in 48 hours
- Lasix held, creatinine monitored.
Addendum entered and electronically signed by Kaitlyn Joy MD 07/01/24 17:55:
I saw and evaluated the patient independently. I reviewed the resident�s note and agree with findings and plan as documented by Dr. Melgar.
GENERAL: well developed, well nourished, female in no apparent distress
HEENT: NC/AT
HEART: regular rate and rhythm, +S1, +S2
LUNGS : clear to auscultation bilaterally
ABDOM: soft, nontender, nondistended, + bowel sounds
EXT: no cyanosis, clubbing, or edema
NEUROLOGIC: no obvious tremors noted
acute dyspnea--especially on exertion, with acute hypoxemic resp insufficiency--now off O2--ECHO reveals hyperdynamic with EF 70-75%--could be due to ETOH cardiomyopathy--apprec cards--stop IV lasix for diuresis (?high output heart failure due to
ETOH) and follow creat
alcohol use/abuse--watch for worsening DTs--has tremors--phenobarbital seems to be helping per pt--cont thiamine, folate, MSAS, needed IV and oral ativan, would hold d/c--needs to quit
alcoholic liver disease--needs to quit ETOH--US shows alcoholic steatosis--trend LFTs
hyponatremia--SSRI? plus ETOH--improved
anxiety/depression--hold cymbalta--cont mirtazipine
DVT proph
code status -- FULL CODE
Original Note:
Today's Communication/Plan
-
.
Assessment / Plan
Assessment / Plan
1. Acute Dyspnea on Exertion
- ED: BNP 273, CXR negative, US LE neg; EKG no significant change from October 2016
- Dilated cardiomyopathy 2/2 alcohol use disorder vs. HFpEF
- Cardiac ECHO (LVEF 70-75%, moderate concentric left ventricular hypertrophy, mild aortic stenosis, mild tricuspid regurgitation)
- Volume overload is improving; switch to PO Lasix prior to discharge.
-Slightly elevated creatinine, hold Lasix today, monitor Cr.
- Appreciate cards
-Recommends as needed Lasix p.o. for weight gain of 3 to 5 pounds in a day/week upon discharge.
- Evaluated and cleared by PT/OT.
2. Acute alcohol abuse
- Has been drinking 750 cc of wine daily for 8 to 9 years
- Last drink was on 06/28 2024 at 2300
- ED: AST 137, ALT 105, alk phos 68, GGT 124, EtOH quant 118; PT PTT INR WNL
- (07/01): AST 84, ALT 75, alk phos 66, improving.
- Continue thiamine, folate, alcohol withdrawal protocol; MSAS trending down from 4 admission to 0 this morning.
- Continue phenobarbital taper
- Continue PRN Ativan
3. Alcoholic Liver Disease
-Abdominal ultrasound shows findings of alcoholic steatosis.
-Would recommend close outpatient follow-up and continued abstinence in the setting of liver injury and potential alcohol-related cardiomyopathy
-Hold Cymbalta.
-Continue to trend liver enzymes.
4. Hypertension
-Continue metoprolol, valsartan. Hold HCTZ. Hold Lasix for today, due to increased creatinine.
5. Hypochloremic Hyponatremia
- Likely 2/2 beer potomania
- Sodium level 131 on admssion; improved to 134.
- Continue to trend CMP.
6. Anxiety/Depression
- Continue to hold Cymbalta in the setting of transamitis.
- Continue Mirtazipine.
Full Code/SubQ Lovenox
Anticipated Discharge: 24 - 48 hours
Subjective/Interval History
-
Date of Service: July 01, 2024
Patient seen and examined resting comfortably in bed. Patient states from a volume overload standpoint, she is doing much better. She says that she notes much less swelling in her lower extremities. Also states that her breathing is very much
improved from presentation. From an alcohol withdrawal standpoint, the patient is concerned about jitteriness. She states that she has been anxious, and required a total of 3 mg of as needed Ativan since last night. Denies abdominal pain, nausea,
vomiting, irregular bowels, chest pain, confusion.
Objective Data
-
Labs:
Laboratory Results
07/01/24
06:50
WBC 6.5
Hgb 12.3
Hct 36.8 L
Plt Count 240
Sodium 133 L
Potassium 3.8
Chloride 89 L
Carbon Dioxide 35 H
BUN 28 H
Creatinine 1.1 H
Glucose 114 H
Calcium 9.1
Total Bilirubin 0.6
AST 84 H
ALT 75 H
Alkaline Phosphatase 66
Vital Signs:
Vital Signs
Temp Pulse Resp BP Pulse Ox
98.1 F 72 16 117/68 99
07/01/24 11:34 07/01/24 11:34 07/01/24 11:34 07/01/24 11:34 07/01/24 11:34
I&O
06/30/24 07/01/24 07/02/24
06:59 06:59 06:59
Intake Total 480 / 480 900 / 900 240 / 240
Balance 480 / 480 900 / 900 240 / 240
Review of Systems
-
History Source: Patient
Constitutional: Reports No Symptoms
Respiratory: Reports No Symptoms
Cardiac: Reports No Symptoms
Abdomen/GI: Reports No Symptoms
Musculoskeletal: Reports No Symptoms
Neuro: Reports Tremors
Psych: Reports Anxious
Physical Exam
-
General: Well Developed, Comfortable, Conversant and Other (mildly tremulous)
HEENT: Normocephalic and Atraumatic
Respiratory: Clear to Auscultation and Other (No wheezing, rales, rhonchi)
Cardiac: Regular Rhythm and S1/S2
GI: Soft, Nontender and Normal Bowel Sounds
Musculoskeletal: No Clubbing, No Cyanosis and No Edema
Skin: Warm and Dry
Neuro: Awake and Alert
Psych: Calm (Appears calm, is status post a total of 3 mg of as needed Ativan since last night.)
Data Reviewed
-
Ultrasound: Report Reviewed by me and Discussed with Patient
Labs: Labs Reviewed by me and Discussed with Patient
--- NOTE | 2024-07-01 17:36 | CM ---
Patient seen at bedside with physicians earlier today. Patient to see [facility] again and indicated that she would follow up with assessment from [facility] today. CM will continue to follow for discharge planning needs.
Plan; home with [facility] to follow
[2024-07-01] MEDS: LUMINAL 64.8 MG PO (21:09)
[2024-07-02 03:23] VITALS: BP 120/58
[2024-07-02 06:00] VITALS: BMI 36.1
[2024-07-02 07:32] VITALS: BP 136/70
[2024-07-02 07:56] VITALS: BMI 36.1
[2024-07-02] MEDS: ORETIC 25 MG PO (08:07)
[2024-07-02] MEDS: FOLVITE 1 MG PO (08:07)
[2024-07-02] MEDS: THERAGRAN 1 TABLET PO (08:07)
[2024-07-02] MEDS: TOPROL XL 50 MG PO (08:07)
[2024-07-02] MEDS: DIOVAN 160 MG PO (08:07)
[2024-07-02] MEDS: THIAMINE INJECTION 200 MG IV ×2 (08:08→15:37)
[2024-07-02] MEDS: LUMINAL 64.8 MG PO ×3 (08:08→21:53)
[2024-07-02] MEDS: REMERON 15 MG PO (08:08)
[2024-07-02 08:29] LABS: % Basophils 0.6 % (0-2); % Eosinophils 2.3 % (0-6); % Immature Granulocytes 0.8 % (0-0.5); % Lymphocytes 25.6 % (20.5-51.1); % Monocytes 12.2 % (1.7-9.3); % Neutrophils 58.5 % (42.2-75.2); Absolute Basophils 0.1 10^3/uL (0-0.2); Absolute Eosinophils 0.2 10^3/uL (0-0.7); Absolute Immature Granulocytes 0.1 10^3/uL (0-0.05); Absolute Neutrophils 4.6 10^3/uL (1.4-6.5); Hematocrit 38.7 % (37.0-47.0); Hemoglobin 12.8 g/dL (12.0-16.0); Mean Corp Hgb Conc. 33.1 g/dL (33.0-37.0); Mean Corpuscular Volume 96.8 fL (81.0-99.0); Mean Platelet Volume 8.7 fL (7.4-10.4); Nucleated Red Blood Cells % 0 %; Platelet Count 255 10^3/uL (130-400); White Blood Cell Count 7.9 10^3/uL (4.8-10.8)
--- NOTE | 2024-07-02 08:36 | PN.CDI ---
CDI
- -
CDI:
Physician Documentation Request
Admit Date: 06/29/24 17:21
Dear Doctor Ramón,
Please review the following and provide your response in the progress notes.
Clinical Indicators:
Pt admitted with BARFIELD, heart failure, and alcoholic liver disease.
07/01 progress note:' Hold Lasix for today, due to increased creatinine.'
Laboratory Tests
06/29/24 06/30/24 07/01/24
11:51 06:46 06:50
Creatinine 0.7 0.9 1.1 H
Clarify which of the following accurately represents the patient's renal status:
Acute kidney injury (non-traumatic) - see criteria
Insignificant abnormal lab values
Other
Criteria for MELLY*
1 Increase in serum creatinine by > or = to 0.3 mg/dL (> or = to 26.5 micromol/L) within 48 hours, OR
2 Increase in serum creatinine to > or = to 1.5 times baseline, which is known or presumed to have occurred within 7 days, OR
3 Urine volume < 0.5 nL/kg/hour for six hours
Use of terms such as suspected, likely, concern for, or probable (associated with a specific diagnosis that is being evaluated, monitored, or treated as if it exists) are acceptable and can be coded in the inpatient setting, when documented at the
time of discharge.
Thank you,
Beatrice Sanches RN, BSN
CDI Specialist
Available via [place] [employer]
Please use your independent medical judgment in providing your response.
*Source: Kidney Disease: Improving Global Outcomes (KDIGO) 2012
--- NOTE | 2024-07-02 09:03 | PN.CDI ---
CDI
- -
CDI:
Physician Documentation Request
Admit Date: 06/29/24 17:21
Dear Doctor Ramón,
Please review the following and provide your response in the progress notes.
Clinical Indicators:
Pt admitted with BARFIELD, heart failure, and alcoholic liver disease.
06/30 Progress Note:' Continue thiamine, folate, alcohol withdrawal protocol; MSAS trending down from 4 admission to 0 this morning....watch for worsening DTs--has tremors--phenobarbital seems to be helping per pt.'
Based on the above, could you clarify in the progress notes, the diagnosis and additional evaluation, monitoring and/or treatment rendered:
Alcohol abuse with withdrawal
Alcohol abuse only
Other
Use of terms such as suspected, likely, concern for, or probable (associated with a specific diagnosis that is being evaluated, monitored, or treated as if it exists) are acceptable and can be coded in the inpatient setting, when documented at the
time of discharge.
Thank you,
Beatrice Sanches RN,BSN
CDI Specialist
Available via [place] [employer]
Please use your independent medical judgment in providing your response.
[2024-07-02 09:13] LABS: ALT (SGPT) 66 U/L (0-35); AST (SGOT) 83 U/L (14-36); Albumin 4.3 g/dl (3.5-5.0); Alkaline Phosphatase 72 U/L (38-126); Blood Urea Nitrogen 31 mg/dl (7-17); Calcium 9.2 mg/dl (8.4-10.2); Carbon Dioxide 29 mmol/L (22-30); Chloride 91 mmol/L (98-107); Estimated Creatinine Clearance 49 ml/min; Glucose 114 mg/dl (70-99); Potassium 3.1 mmol/L (3.5-5.1); Sodium 131 mmol/L (135-145); Total Bilirubin 0.5 mg/dl (0.2-1.3); Total Protein 6.6 g/dl (6.3-8.2); eGFR > 60.00
[2024-07-02 11:09] VITALS: BP 122/81
[2024-07-02 11:31] LABS: Magnesium 2.2 mg/dl (1.6-2.3)
--- NOTE | 2024-07-02 13:45 | CM ---
Patient seen at bedside with physicians. Patient being followed by [facility] and psych to see patient today. IMM completed and signed form placed on chart. Patient stating to physician that she is more depressed. CM will continue to follow for
discharge planning needs.
PLan; home with outpatient alcohol treatment; watch for further [facility] recommendations
--- NOTE | 2024-07-02 13:54 | W.PN.HOSP.TC ---
Addendum entered and electronically signed by Kaitlyn Joy MD 07/02/24 15:22:
I saw and evaluated the patient independently. I reviewed the resident�s note and agree with findings and plan as documented by Dr. Melgar.
GENERAL: well developed, well nourished, female in no apparent distress
HEENT: NC/AT
HEART: regular rate and rhythm, +S1, +S2
LUNGS : clear to auscultation bilaterally
ABDOM: soft, nontender, nondistended, + bowel sounds
EXT: no cyanosis, clubbing, or edema
NEUROLOGIC: no obvious tremors noted
acute dyspnea--especially on exertion, with acute hypoxemic resp insufficiency--now off O2--ECHO reveals hyperdynamic with EF 70-75%, high output heart failure--did receive lasix--apprec cards--stop IV lasix for diuresis and follow creat
sinus tachycardia (with exertion)--likely due to deconditioning--could be due to mild DTs/withdrawal but BP WNL, tremors improved, NO hallucinations
alcohol use/abuse with withdrawal--watch for worsening DTs--has tremors--phenobarbital seems to be helping per pt--cont thiamine, folate, MSAS--needs to quit
alcoholic liver disease--needs to quit ETOH--US shows alcoholic steatosis--trend LFTs
hyponatremia--SSRI? plus ETOH--improved
MELLY -- likely from overdiuresis--lasix on hold and now down to 1.0
hypokalemia--replete
anxiety/depression--hold cymbalta--cont mirtazapine
DVT proph
code status -- FULL CODE
Original Note:
Today's Communication/Plan
-
.
Assessment / Plan
Assessment / Plan
1. Acute Dyspnea on Exertion
- ED: BNP 273, CXR negative, US LE neg; EKG no significant change from October 2016
- Dilated cardiomyopathy 2/2 alcohol use disorder vs. HFpEF
- Cardiac ECHO (LVEF 70-75%, moderate concentric left ventricular hypertrophy, mild aortic stenosis, mild tricuspid regurgitation)
- Volume overload is improving; switch to PO Lasix prior to discharge.
-Slightly elevated creatinine, hold Lasix today, monitor Cr.
- Appreciate cards
-Recommends as needed Lasix p.o. for weight gain of 3 to 5 pounds in a day/week upon discharge.
- Evaluated and cleared by PT/OT.
2. Acute alcohol abuse
- Has been drinking 750 cc of wine daily for 8 to 9 years
- Last drink was on 06/28 2024 at 2300
- ED: AST 137, ALT 105, alk phos 68, GGT 124, EtOH quant 118; PT PTT INR WNL
- (07/01): AST 84, ALT 75, alk phos 66, improving.
- Continue thiamine, folate, alcohol withdrawal protocol; MSAS trending down from 4 admission to 0 this morning.
- MSAS continues to be 0.
- Continue phenobarbital taper
- Continue PRN Ativan (not required last night)
- Patient to be seen by Psych today for depression; requested she talk to patient about outpatient alcohol abuse options
3. Alcoholic Liver Disease
-Abdominal ultrasound shows findings of alcoholic steatosis.
-Would recommend close outpatient follow-up and continued abstinence in the setting of liver injury and potential alcohol-related cardiomyopathy
-Hold Cymbalta. (See depression below).
-Continue to trend liver enzymes.
4. Hypertension
-Continue metoprolol, valsartan. Hold HCTZ. Hold Lasix for today, due to increased creatinine. Continue on a PRN basis for weight gain.
5. Hypochloremic Hyponatremia
- Likely 2/2 beer potomania
- Sodium level 131 on admssion; improved to 134. 131 today, continue to trend.
- Continue to trend CMP.
6. Anxiety/Depression
- Continue to hold Cymbalta in the setting of transamitis.
- Continue Mirtazipine.
- Patient feeling depressed today. Will consider restarting Cymbalta in the setting of improving transaminitis.
- Paula consulted for medication options as well as for resources regarding outpatient alcohol abstinence programs and naloxone.
7. Exertional Tachycardia
- EKG today.
8. Hypokalemia
- K 3.1; replete with 40meQ today.
- Check Mg level.
Full Code/SubQ Lovenox
Anticipated Discharge: 24 - 48 hours
Subjective/Interval History
-
Date of Service: July 02, 2024
Patient seen and examined, resting comfortably in bed. Patient states that from a fluid retention standpoint she feels good, denies lower extremity swelling or trouble breathing. Patient also denies tremors, confusion, and notes she did not require
her PRN order of Ativan last night for withdrawal symptoms. Patient does note however, that since her Cymbalta has been held, she notes feelings of depressed this mood this morning. Patient denies hallucinations, trouble sleeping, thoughts of
harming herself or others.
Additionally, nurse notes that the patient becomes tachycardic on monitor when she gets up and walks around.
Objective Data
-
Labs:
Laboratory Results
07/02/24
06:43
WBC 7.9
Hgb 12.8
Hct 38.7
Plt Count 255
Sodium 131 L
Potassium 3.1 L
Chloride 91 L
Carbon Dioxide 29
BUN 31 H
Creatinine 1.0
Glucose 114 H
Calcium 9.2
Total Bilirubin 0.5
AST 83 H
ALT 66 H
Alkaline Phosphatase 72
Vital Signs:
Vital Signs
Temp Pulse Resp BP Pulse Ox
98.3 F 88 16 122/81 95
07/02/24 11:09 07/02/24 11:09 07/02/24 11:09 07/02/24 11:09 12/18/24 11:09
I&O
07/01/24 07/02/24 07/03/24
06:59 06:59 06:59
Intake Total 900 / 900 720 / 720
Balance 900 / 900 720 / 720
Review of Systems
-
History Source: Patient
Constitutional: Reports No Symptoms
Respiratory: Reports No Symptoms
Cardiac: Reports No Symptoms
Abdomen/GI: Reports No Symptoms
Musculoskeletal: Reports No Symptoms
Psych: Reports Depressed
Physical Exam
-
General: Well Developed, Well Nourished, No Apparent Distress and Comfortable
HEENT: Normocephalic and Atraumatic
Respiratory: Clear to Auscultation
Cardiac: Regular Rhythm and S1/S2
GI: Soft and Nontender
Musculoskeletal: No Clubbing, No Cyanosis and No Edema
Skin: Warm and Dry
Neuro: Awake and Alert
Psych: Depressed and Other (denies suicidal ideation)
Data Reviewed
-
Labs: Labs Reviewed by me
[2024-07-02] MEDS: KCL 40 MEQ PO (13:55)
[2024-07-02 15:00] VITALS: BP 109/68
--- NOTE | 2024-07-02 15:30 | CON.MD ---
Consultation - Medical
-
patient seen chart reviewed. discussed w nursing pt w hx depression for years. rx w a number of antidep which were variously helpful. cymbalta for years not particularly helpful but dealing w a lot of stress. of h, autistic grandson, $
issues, son's psych issues which caused her to get a pfa against him. she has also taken elavil zoloft and buproprion. now on remeron. patient w difficultyl sleeping. appetite fair. some weight loss about 15 lbs. lack of energy. does not
enjoy much . no suicidal thoughts. would not do that to her family. no psychosis nothing to suggest bipolar at this point. currentlyl cymbalta 60 mg stopped given low NA.
past psych hx no psych hosp. was in therapy in her twenties
substance abuse drinks a fifth of wine daily sober for a year in the past five years. was sober from twenties to 's
medical hx patient here w cc of shortness of breath. LE edema. cardiomyopathy fatty liver hyponatremia OA htn gerd bariatric surgery hx hysterectomy glaucoma vital signs stable has not required ativan as per amsas qtc ok 431 NA 131
bun 31 ast and alt s/w elevated LE ultraounds without obstruction
fh mother w serious psych issues in and of state hosp. son dx schizophrenia grandson autistic
social hx mother unable to be nurturing father when patient age 12 of 42 years five years ago leaving patient bereft three kids grandkids. son and his two kids live w her. came to help support her during h's illness. works
at [employer]
mse alert ox3 cooperative pleasant speech and thought process nl depressed affect appropriate no si aver intelligence insight judgment ok
dx major depression recurrent severe etoh use d/o severe
plan would continue w msas dc cymbalta for now. continue w mirtazepine which is a little less likely to dec NA. needs some form of rehab does not want in pt could do virtual iop. will follow w her. may consider gabapentin for anxiety or
sleep. says she tried melatonin. she is sleeping her in hospital. she has taken naltrexone in the with success which we can also consider. i doubt her medicare advantage plan will cover vivitrol but she could call and ask them. it is not formulary
here.
--- NOTE | 2024-07-02 16:21 | PTCARENOTE ---
MSAS score of 5 at 1600, 1mg PO ativan administered per protocol for MSAS. MSAS to be done again in 2 hours.
[2024-07-02] MEDS: ATIVAN 1 MG PO (16:22)
[2024-07-02 19:36] VITALS: BP 110/62
[2024-07-02] MEDS: VITAMIN B1 100 MG PO (20:25)
[2024-07-02 23:17] VITALS: BP 99/60
[2024-07-03 02:58] VITALS: BP 109/70
[2024-07-03 04:58] VITALS: BMI 36.6
[2024-07-03 07:39] VITALS: BP 119/62
[2024-07-03 08:38] LABS: % Basophils 0.9 % (0-2); % Immature Granulocytes 0.8 % (0-0.5); % Lymphocytes 24.8 % (20.5-51.1); % Monocytes 12.9 % (1.7-9.3); % Neutrophils 57.6 % (42.2-75.2); Absolute Basophils 0.1 10^3/uL (0-0.2); Absolute Eosinophils 0.2 10^3/uL (0-0.7); Absolute Immature Granulocytes 0.1 10^3/uL (0-0.05); Absolute Lymphocytes 1.9 10^3/uL (1.2-3.4); Absolute Neutrophils 4.5 10^3/uL (1.4-6.5); Hemoglobin 12.9 g/dL (12.0-16.0); Mean Corp Hgb Conc. 33.9 g/dL (33.0-37.0); Mean Corpuscular Hgb 32.6 pg (27.0-31.0); Mean Platelet Volume 8.9 fL (7.4-10.4); Nucleated Red Blood Cells % 0 %; Platelet Count 257 10^3/uL (130-400); Red Blood Cell Count 3.96 10^6/uL (4.20-5.40); Red Cell Dist. Width 12.9 % (11.5-14.5); White Blood Cell Count 7.7 10^3/uL (4.8-10.8)
--- NOTE | 2024-07-03 09:08 | W.PN.HOSP.TC ---
Addendum entered and electronically signed by Kaitlyn Joy MD 07/03/24 13:19:
I saw and evaluated the patient independently. I reviewed the resident�s note and agree with findings and plan as documented by Dr. Melgar.
GENERAL: well developed, well nourished, female in no apparent distress
HEENT: NC/AT
HEART: regular rate and rhythm, +S1, +S2
LUNGS : clear to auscultation bilaterally
ABDOM: soft, nontender, nondistended, + bowel sounds
EXT: no cyanosis, clubbing, or edema
NEUROLOGIC: no obvious tremors noted
acute dyspnea--especially on exertion, with acute hypoxemic resp insufficiency--now off O2--ECHO reveals hyperdynamic with EF 70-75%, high output heart failure--did receive lasix--apprec cards--stop IV lasix for diuresis and follow creat
sinus tachycardia (with exertion)--likely due to deconditioning--could be due to mild DTs/withdrawal but BP WNL, tremors improved, NO hallucinations
alcohol use/abuse with withdrawal--watch for worsening DTs-- tremors resolved--no phenobarbital at d/c--cont thiamine, folate--needs to quit
alcoholic liver disease--needs to quit ETOH--US shows alcoholic steatosis--trend LFTs
hyponatremia--SSRI? plus ETOH--likely chronic
MELLY -- likely from overdiuresis--lasix on hold and now down to 1.0
hypokalemia--replete
anxiety/depression--hold cymbalta--cont mirtazapine
DVT proph
code status -- FULL CODE
OK for d/c
Original Note:
Today's Communication/Plan
-
.
Assessment / Plan
Assessment / Plan
1. Acute Dyspnea on Exertion
- ED: BNP 273, CXR negative, US LE neg; EKG no significant change from October 2016
- Dilated cardiomyopathy 2/2 alcohol use disorder vs. HFpEF
- Cardiac ECHO (LVEF 70-75%, moderate concentric left ventricular hypertrophy, mild aortic stenosis, mild tricuspid regurgitation)
- Volume overload is improving; switch to PO Lasix prior to discharge.
-Lasix held in response to elevated creatinine; creatinine 1.0 today and stable; switch to PRN dosing of Lasix
- Appreciate cards
-Recommends as needed Lasix p.o. for weight gain of 3 to 5 pounds in a day/week upon discharge.
- Evaluated and cleared by PT/OT.
2. Acute alcohol abuse
- Has been drinking 750 cc of wine daily for 8 to 9 years
- Last drink was on 06/28 2024 at 2300
- ED: AST 137, ALT 105, alk phos 68, GGT 124, EtOH quant 118; PT PTT INR WNL
- (07/03): AST 71, ALT 59, alk phos 69, improving.
- Continue thiamine, folate, alcohol withdrawal protocol; MSAS trending down from 4 admission to 0. MSAS 1 this morning. Continue to monitor.
- MSAS 1 this morning due to drowsiness; unsure if this is true drowsiness, phenobarbital side effect or depression, will continue to monitor as phenobarb is expected to taper this afternoon.
- Continue phenobarbital taper
- Continue PRN Ativan (not required last night x2)
- Appreciate Psych: patient does not want inpatient for alcohol cessation, prefers IOP. Continue to hold Cymbalta for hyponatremia (131 today, but stable), continue Mirtazipine.
3. Alcoholic Liver Disease
-Abdominal ultrasound shows findings of alcoholic steatosis.
-Would recommend close outpatient follow-up and continued abstinence in the setting of liver injury and potential alcohol-related cardiomyopathy
-With liver enzymes improving would be okay with restarting Cymbalta, however patient continues to have mild hyponatremia in the setting of beer potomania. Will continue to hold as per psych reccs. (See depression below).
-Continue to trend liver enzymes.
4. Hypertension
-Continue metoprolol, valsartan. Hold HCTZ. Hold Lasix for today, due to increased creatinine. Continue on a PRN basis for weight gain.
5. Hypochloremic Hyponatremia
- Likely 2/2 beer potomania
- Sodium level 131 on admssion; improved to 134. 131 today, continue to trend.
- Continue to trend CMP.
6. Anxiety/Depression
- Continue to hold Cymbalta in the setting of hyponatremia.
- Continue Mirtazipine.
- Patient continues to feel depressed today, though I am unsure if she is drowsy from alcohol withdrawal, or side effect of phenobarbital. Denies thoughts of self harm.
- Paula consulted for medication options as well as for resources regarding outpatient alcohol abstinence programs and naloxone.
7. Exertional Tachycardia
- EKG yesterday: Sinus rhythm unchanged from prior.
- Will repeat ambulatory monitoring prior to discharge.
8. Hypokalemia
- K 3.1 --> 4.2; s/p 40 mEq repletion yesterday
- Mg 2.2
Full Code/SubQ Lovenox
Anticipated Discharge: Within 24 hours
Subjective/Interval History
-
Date of Service: July 03, 2024
Patient seen and examined at bedside, resting comfortably. Has no physical complaints this morning. Denies shortness of breath, chest pains, palpitations, or lower extremity edema.
Patient notes however that she is still depressed. Seen by Dr. Sheridan yesterday who suggested inpatient admission for alcohol abstinence but patient would rather do virtual IOP. Also recommended against restarting Cymbalta in the setting of
hyponatremia. Patient still feeling depressed.
Per nurse, MSAS 1, RASS -1 this morning.
Objective Data
-
Labs:
Laboratory Results
07/03/24
07:36
WBC 7.7
Hgb 12.9
Hct 38.0
Plt Count 257
Sodium Pending
Potassium Pending
Chloride Pending
Carbon Dioxide Pending
BUN Pending
Creatinine Pending
Glucose Pending
Calcium Pending
Total Bilirubin Pending
AST Pending
ALT Pending
Alkaline Phosphatase Pending
Vital Signs:
Vital Signs
Temp Pulse Resp BP Pulse Ox
98.2 F 85 16 119/62 95
07/03/24 07:39 07/03/24 07:39 07/03/24 07:39 07/03/24 07:39 07/03/24 07:39
I&O
07/02/24 07/03/24 07/04/24
06:59 06:59 06:59
Intake Total 720 / 720 40 / 40
Balance 720 / 720 40 / 40
Review of Systems
-
History Source: Patient
Respiratory: Reports No Symptoms
Cardiac: Reports No Symptoms
Abdomen/GI: Reports No Symptoms
Musculoskeletal: Reports No Symptoms
Neuro: Reports No Symptoms
Psych: Reports Depressed
Physical Exam
-
General: Well Developed and No Apparent Distress
HEENT: Normocephalic and Moist Mucous Membranes
Respiratory: Clear to Auscultation and Chest Tubes (No wheezing, rales, rhonchi.)
Cardiac: Regular Rhythm and Other (Regular Rate)
GI: Soft, Nontender and Nondistended
Musculoskeletal: No Edema
Skin: Warm and Dry
Neuro: Awake, Alert and Oriented
Psych: Depressed
Data Reviewed
-
Labs: Labs Reviewed by me
[2024-07-03] MEDS: VITAMIN B1 100 MG PO (09:22)
[2024-07-03] MEDS: DIOVAN 160 MG PO (09:22)
[2024-07-03] MEDS: ORETIC 25 MG PO (09:23)
[2024-07-03] MEDS: TOPROL XL 50 MG PO (09:23)
[2024-07-03] MEDS: LUMINAL 64.8 MG PO (09:23)
[2024-07-03] MEDS: THERAGRAN 1 TABLET PO (09:23)
[2024-07-03] MEDS: REMERON 15 MG PO (09:23)
[2024-07-03] MEDS: FOLVITE 1 MG PO (09:23)
[2024-07-03 09:37] LABS: ALT (SGPT) 59 U/L (0-35); AST (SGOT) 71 U/L (14-36); Albumin 4.5 g/dl (3.5-5.0); Alkaline Phosphatase 69 U/L (38-126); Blood Urea Nitrogen 35 mg/dl (7-17); Calcium 9.3 mg/dl (8.4-10.2); Carbon Dioxide 30 mmol/L (22-30); Chloride 93 mmol/L (98-107); Estimated Creatinine Clearance 49 ml/min; Glucose 114 mg/dl (70-99); Potassium 4.2 mmol/L (3.5-5.1); Sodium 131 mmol/L (135-145); Total Bilirubin 0.4 mg/dl (0.2-1.3); Total Protein 6.9 g/dl (6.3-8.2); eGFR > 60.00
[2024-07-03 11:10] VITALS: BP 132/69
--- NOTE | 2024-07-03 11:16 | CM ---
Patient seen at bedside.
MSAS 1 today per nursing.
Dr. Sheridan seeing patient.
Called Samuel from [facility] to follow up with patient today for questions.
patient prefers virtual IOP - patient to call insurance company
Patient was given handouts on virtual IOP assessment sites, Vivitrol inj
PT/OT evals - no needs
PLAN: home, virtual IOP, [facility] following
son to transport
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
--- NOTE | 2024-07-03 14:42 | W.DCSUMMARY ---
Addendum entered and electronically signed by Kaitlyn Joy MD 07/03/24 15:22:
Read, reviewed, and agree. See same day progress note for additional details. Time spent coordinating care, DC planning, review of DC plan of care with resident, transition of care, review of records in EMR, med rec, consults, notes, d/w
consultants, nursing, family, and CM = 45 minutes
Original Note:
Discharge Summary
Discharge Data
Date of Admission: 06/29/24
Date of Discharge: 07/03/24
-
Pending Results: No
Hospital Course
Elo Mcdaniel is a 69-year-old female with a past medical history of hypertension, anxiety, depression, and alcohol use disorder who presented to the emergency department at [facility] on 06/29/2024 complaining of dyspnea on exertion,
orthopnea, and nonproductive cough over the preceding few weeks along with bilateral lower extremity edema and unintentional 15 to 18 pound weight gain in the preceding 2 weeks. The patient noted a longstanding alcohol use history. The patient
began drinking in her early teens, stopped when she had children, and then started drinking again at age 60 when her . She reported drinking 750 mL bottle of wine daily as well as waking up with hand tremors that resolve when she starts
drinking alcohol. The patient's last drink was approximately 15 hours prior to arrival.
In the emergency department, the patient had +1 bilateral peripheral edema, with the right being greater than left, as well as JVD. The rest of her examination was benign and her vital signs were stable. Laboratory examination showed a mild
hyponatremia of 131 and a hypochloremia of 90 with a bicarbonate level of 33. Liver studies showed a transaminitis, AST 137 and ALT 105. Although her pulse ox was normal at rest, she was saturating at 88% with ambulation. A BNP was obtained which
was 273. EKG was normal sinus rhythm and a venous Doppler did not exhibit DVT. The patient was admitted that afternoon for acute dyspnea on exertion with hypoxia out of concern for possible acute heart failure versus alcoholic cardiomyopathy.
Upon admission a 2D echo of the heart was obtained which exhibited hyperdynamic systolic function with a left ventricular ejection fraction 70 to 75% and moderate concentric left ventricular hypertrophy. There was however, no significant change
compared to prior echocardiogram on 08/19/2018. Also upon admission, the patient was started on IV Lasix 40 mg which over the course of her admission improved her volume overloaded state. The patient began feeling less out of breath and serial
clinical examinations revealed decreasing lower extremity edema. Her history of hypertension was controlled using metoprolol and valsartan. Given the patient's metabolic derangements, decision was made to hold hydrochlorothiazide, particularly in
the setting of her receiving gentle diuresis with Lasix. For the final 2 days of her admission, Lasix was held due to the fact that her creatinine started to rise. Creatinine level returned to 1.0 following discontinuation of Lasix. It is
recommended, that upon discharge, the patient should remain only on a p.o. dose of Lasix as needed for weight gain of at least 3 to 5 pounds.
With regards to the patient's history of alcohol use, the patient received serial MSAS assessments, the highest of which was 4 on the second day of admission. The patient remained at 0 for the final 72 hours of her stay. The patient was
supplemented with thiamine and folate (she was discharged with prescriptions for the same) and started on a phenobarbital taper. The patient received 6 doses of the 97.2 mg dose as well as 6 doses of the 64.8 mg dose prior to discharge. Additional
as needed Ativan for anxiety was only needed for 1 night. The patient was sent home with a prescription for naltrexone as well as information on virtual intensive outpatient follow-up. By the day of her discharge, her liver enzymes continue to
trend down. Additional findings included abdominal ultrasound which was performed, that showed findings of alcoholic steatosis.
With regards to the patient's metabolic abnormalities on admission (hypochloremia, hyponatremia), the findings were likely secondary to beer potomania. Sodium levels fluctuated between 131 and 134 but remained stable.
With regards to the patient's anxiety and depression, the decision was made to hold Cymbalta in the setting of transaminitis as well as alcoholic steatosis as seen on abdominal ultrasound. The patient remained on mirtazapine. However, towards the
end of her stay the patient began to feel more depressed. Psychiatry was consulted, who recommended that Cymbalta should continue to be held in the setting of hyponatremia. It was recommended that the patient continue on mirtazapine. The patient
to follow-up with her primary care provider in order to restart Cymbalta if lab values allow, or start the patient on an alternative medication.
The patient was discharged home on 07/03/2024 with instructions to follow-up with primary care provider in less than 1 week.
Incidental Finding: moderate to large Hankins's cyst in the right popliteal fossa as seen on ultrasound of the right lower extremity.
Discharge Plan
-
Patient Disposition: Home (Routine Discharge)
Discharge Diagnosis/Procedures: Volume Overload Likely Secondary to High Output Heart Failure
Alcohol Withdrawal
Condition: Fair
Diet: Low Cholesterol
Activity: As tolerated
Instructions: *PCP/Other Spot Man Heart Failure Instructions
Referrals:
Chantell Fleix CRNP [Specified Professional Personl] - 07/29/24 9:20 am
Indigo Esteban DO [Family Provider] - in less than 1 week
Prescriptions:
New
naltrexone 50 mg Tablet
50 mg PO HS Qty: 30 0RF
folic acid 1 mg Tablet
1 mg PO DAILY Qty: 30 0RF
thiamine HCl (vitamin B1) 100 mg Tablet
100 mg PO BID Qty: 30 0RF
Continued
metoprolol succinate [Toprol XL] 50 mg Tablet Extended Release 24 Hr
50 mg PO DAILY
therapeutic multivitamin Tablet
1 tab PO DAILY
mirtazapine 15 mg Tablet
15 mg PO DAILY
valsartan 160 mg Tablet
160 mg PO DAILY
Collagen Skin Renewal 30-833.3 mg Tablet
1 tab PO DAILY
Held
hydrochlorothiazide 25 mg Tablet
25 mg PO DAILY
Hold Instructions: Hold Until Seen by PCP.
duloxetine [Cymbalta] 60 mg Capsule,Delayed Release(Dr/Ec)
60 mg PO DAILY
Hold Instructions: Hold Until Seen by PCP
Discharge Orders:
Discharge Patient (As Directed); Ordered 07/03/24
Ordered By: Shaan Melgar
Discharge Date and Time
Print Language: JAPANESE
[2024-07-03 15:10] VITALS: BP 128/64
[2024-07-03 15:52] VITALS: BP 128/64
== END 2024-07-03 17:15 | disposition home or self-care (01) | DRG 314 ==
LOC: 2 NORTH 17:21
PROVIDERS: Clinical Nurse Specialist Family Health; Emergency Medicine; ADMITTING PHYSICIAN Hospitalist; ATTENDING PHYSICIAN Internal Medicine; CONSULT PHYSICIAN Internal Medicine Cardiovascular Disease; CONSULT PHYSICIAN Psychiatry & Neurology Psychiatry; EMERGENCY PHYSICIAN Student in an Organized Health Care Education/Training Program; FAMILY PHYSICIAN Family Medicine
DX: I42.6 Alcoholic cardiomyopathy (principal); I50.31 Acute diastolic (congestive) heart failure; E87.1 Hypo-osmolality and hyponatremia; N17.9 Acute kidney failure, unspecified; F10.139 Alcohol abuse with withdrawal, unspecified; Z87.891 Personal history of nicotine dependence; I11.0 Hypertensive heart disease with heart failure; I50.83 High output heart failure; Z82.49 Family history of ischemic heart disease and other diseases of the circulatory system; F41.9 Anxiety disorder, unspecified; F32.A Depression, unspecified; E66.812 Obesity, class 2; Z68.28 Body mass index [BMI] 28.0-28.9, adult; E87.6 Hypokalemia
CPT/HCPCS: 71046; 76700; 80053; 80061; 80306; 81003; 82010; 82077; 82977; 83735; 83880; 84100; 84484; 85025; 85379; 85610; 85730; 93005; 93306; 93971; 97161; 97165; 99285

== ENCOUNTER 2024-07-13 16:59 | Observation (INO) | payer MEDICARE, SELFPAY ==
[2024-07-13] VITALS (7 sets, daily range): BP systolic 126–155; BP diastolic 66–96; BMI 37.5
[2024-07-13 12:32] LABS: % Basophils 1.4 % (0-2); % Eosinophils 4.1 % (0-6); % Immature Granulocytes 0.6 % (0-0.5); % Lymphocytes 23.8 % (20.5-51.1); % Monocytes 10.4 % (1.7-9.3); % Neutrophils 59.7 % (42.2-75.2); Absolute Basophils 0.1 10^3/uL (0-0.2); Absolute Eosinophils 0.2 10^3/uL (0-0.7); Absolute Lymphocytes 1.2 10^3/uL (1.2-3.4); Absolute Monocytes 0.5 10^3/uL (0.1-0.6); Absolute Neutrophils 3.1 10^3/uL (1.4-6.5); Hematocrit 34.6 % (37.0-47.0); Hemoglobin 11.2 g/dL (12.0-16.0); Mean Corp Hgb Conc. 32.4 g/dL (33.0-37.0); Mean Corpuscular Hgb 32.4 pg (27.0-31.0); Mean Platelet Volume 8.9 fL (7.4-10.4); Nucleated Red Blood Cells % 0 %; Platelet Count 369 10^3/uL (130-400); Red Blood Cell Count 3.46 10^6/uL (4.20-5.40); Red Cell Dist. Width 12.7 % (11.5-14.5); White Blood Cell Count 5.1 10^3/uL (4.8-10.8)
[2024-07-13 12:45] LABS: ALT (SGPT) 36 U/L (0-35); AST (SGOT) 40 U/L (14-36); Alkaline Phosphatase 50 U/L (38-126); Blood Urea Nitrogen 11 mg/dl (7-17); Calcium 9.1 mg/dl (8.4-10.2); Carbon Dioxide 28 mmol/L (22-30); Chloride 107 mmol/L (98-107); Glucose 116 mg/dl (70-99); Potassium 3.9 mmol/L (3.5-5.1); Sodium 142 mmol/L (135-145); Total Bilirubin < 0.1 mg/dl (0.2-1.3); Total Protein 6.5 g/dl (6.3-8.2); eGFR > 60.00
[2024-07-13 12:57] LABS: NT-proBNP 531 pg/ml; Troponin I < 0.012 ng/ml
--- NOTE | 2024-07-13 15:44 | ED.GENMED ---
History of Present Illness
General
Chief Complaint: Swelling
Source: patient and spouse
Exam Limitations: none
Time Seen by Provider: 07/13/24 14:46
Nursing documentation reviewed up to this point in time: agreed with
History of Present Illness
History of Present Illness:
69-year-old female past medical history of CHF, hypertension presenting to the emergency department with concerns of weight gain worsening dyspnea on exertion over the past few days. Recently was hospitalized for heart failure was diuresed
discharged 10 days ago. Symptoms worsening over the past few days. Weight gain at home closely monitored and has been roughly 10 pounds over the past few days. Has been taking oral Lasix without relief. Denies specific chest pain fevers recent
illness.
Past History
Past History
ED Past Medical History: HTN
ED Past Surgical History: Gynecological and Other (hernia)
Social History
Tobacco: Non-smoker
Alcohol: Occasional
Living: with family
Review of Systems
Review of Systems
Allergies reviewed?: Yes
All Other Systems: ROS reviewed and negative except as documented in HPI and ROS
Phy Exam
Physical Exam
Physical Exam:
GENERAL: Alert , in no apparent distress
EYE: pupils equal and reactive
NECK: Supple, no significant adenopathy.
ENT: o/p clr, mmm.
CARDIAC: Regular rate and rhythm .
LUNGS: Clear breath sounds bilaterally, no acute respiratory distress, no wheezes/rales/rhonchi
ABDOMEN: Soft, without focal tenderness, no r/g, no cvat
NEUROLOGICAL: Alert and oriented, no focal neuro deficits
SKIN: Warm and dry, skin intact.
MUSCULOSKELETAL: +1 edema distal to the knees bilaterally., well perfused.
PSYCH: Normal and appropriate interaction.
Scores
Heart Failure Risk
Heart Failure Risk Score: Not Applicable
Course
Orders/Labs/Results
Orders:
Orders
07/13/24 11:59
Electrocardiogram (*1) Urgent
Reason for Study: Other
Other Reason for Exam: Respiratory Distress
EKG- Treatment ONCE
CR Chest - 2 Views Urgent
Comment:
Reason For Exam: respiratory distress
07/13/24 12:24
Complete Blood Count/With Diff Urgent
Comprehensive Metabolic Panel Urgent
NT-proBNP Urgent
Troponin I Urgent
07/13/24 15:25
Furosemide [Lasix] 40 mg IV NOW STA
Abnormal Lab Results
07/13/24
12:24
RBC 3.46 L 10^6/uL
(4.20-5.40)
Hgb 11.2 L g/dL
(12.0-16.0)
Hct 34.6 L %
(37.0-47.0)
MCV 100.0 H fL
(81.0-99.0)
MCH 32.4 H pg
(27.0-31.0)
MCHC 32.4 L g/dL
(33.0-37.0)
Immature Gran % 0.6 H %
(0-0.5)
Monocytes % 10.4 H %
(1.7-9.3)
Glucose 116 H mg/dl
(70-99)
Total Bilirubin < 0.1 L mg/dl
(0.2-1.3)
AST 40 H U/L
(14-36)
ALT 36 H U/L
(0-35)
07/13/24 12:24
07/13/24 12:24
Vital Signs
Initial and Last Documented VS:
Initial Vital Signs
Temp Pulse Resp BP Pulse Ox
98.5 F 87 16 140/73 99
07/13/24 12:05 07/13/24 12:05 07/13/24 12:05 07/13/24 12:05 07/13/24 12:05
Last Documented Vital Signs
Temp Pulse Resp BP Pulse Ox
98.5 F 87 16 140/73 99
07/13/24 12:05 07/13/24 12:05 07/13/24 12:05 07/13/24 12:05 07/13/24 12:05
MDM/Problems Addressed
MDM/Problems Addressed:
69-year-old female presenting to the emergency department with concerns of potential fluid retention weight gain over the past few days. Recently admitted for fluid overload and was given IV diuresis. [facility] better at time of discharge 10 days ago
but worsening symptoms over the past few days. Patient did have a significant weight gain from time of discharge she denies significant oral intake or food intake that would explain this. Concerning this plan for IV diuresis and monitoring
overnight.
*Critical Care Note
Total Time (30-74mins, 75-104mins- exclusive of procedures): Not Applicable
ED Attending Note
-
Portions of this chart may have been created with voice recognition software.� Occasional wrong word or��sound alike� substitutions may have occurred due to the inherent limitations of voice recognition software.
Discharge Plan
Departure
Patient Disposition: Admit
Date of Disposition: 07/13/24
Time of Disposition: 15:47
Admit to: Telemetry
Admit to doctor: Sasha
Presentation/result/management discussed w/ accepting MD/DO: Hospitalist
Patient with high blood pressure during this ER visit?: No
Condition: Good
Covid-19: Not Applicable
Discharge Problem:
Heart failure
Prescriptions:
No Action
metoprolol succinate [Toprol XL] 50 mg Tablet Extended Release 24 Hr
50 mg PO DAILY
therapeutic multivitamin Tablet
1 tab PO DAILY
hydrochlorothiazide 25 mg Tablet
25 mg PO DAILY
mirtazapine 15 mg Tablet
15 mg PO DAILY
valsartan 160 mg Tablet
160 mg PO DAILY
duloxetine [Cymbalta] 60 mg Capsule,Delayed Release(Dr/Ec)
60 mg PO DAILY
Collagen Skin Renewal 30-833.3 mg Tablet
1 tab PO DAILY
naltrexone 50 mg Tablet
50 mg PO HS Qty: 30 0RF
folic acid 1 mg Tablet
1 mg PO DAILY Qty: 30 0RF
thiamine HCl (vitamin B1) 100 mg Tablet
100 mg PO BID Qty: 30 0RF
Referrals:
Indigo Esteban DO [Family Provider] -
Interventions
Interventions:
*Risk Screen - Suicide Last Done: 07/13/24 12:05
*General Assessment Last Done: 07/13/24 12:05
*Neglect/Abuse Screening Last Done: 07/13/24 12:05
*ED COVID-19 Vaccine History Last Done: 07/13/24 12:05
Discharge Date and Time
Print Language: JAPANESE
[2024-07-13] MEDS: LASIX 40 MG IV (15:58)
--- NOTE | 2024-07-13 16:06 | HPS.HSE ---
Family Physician
-
Family Physician: Indigo Esteban
Chief Complaint
-
swelling
History of Present Illness
69-year-old female past medical history of hypertension, alcohol use disorder, anxiety/depression, GERD, gastric bypass, former smoker, osteoarthritis, presenting with weight gain and worsening shortness of breath with exertion over the past few
days. She has gained 7 pounds since past discharge. She has been taking oral Lasix occasionally without relief. Denies chest pain, cough, fevers or chills or nausea vomiting or diarrhea. Denies abdominal distention.
Patient was recently admitted from 06/29 to 07/03 with acute CHF exacerbation. She was diuresed.
She has not been drinking any alcohol since prior to her previous admission. She complains of itching all over her body since stopping alcohol. She also complains of pain in her right upper arm.
Medical History
Past Medical History
Past Medical History: Reports Other (hypertension, alcohol use disorder, anxiety/depression, GERD, gastric bypass, former smoker, osteoarthritis)
Past Surgical History: Reports Other (Gynecological and Other (hernia))
Social History
Tobacco: Non-smoker
Alcohol: Former
Drug: None
Family History
Family History: Not pertinent
Allergies / Home Medications
Allergies reflects when Allergies were last updated in [facility].
Home Medications with original date entered in [facility]
Allergy/Medication List:
Allergies
Allergy/AdvReac Type Severity Reaction Status Date / Time
sulfamethoxazole Allergy Itching Verified 07/13/24 12:09
[From Bactrim]
trimethoprim [From Bactrim] Allergy Itching Verified 07/13/24 12:09
Home Medications
ascorbic acid 30 mg-collagen, hydrolyzed 833.3 mg tablet (Collagen Skin Renewal) 1 tab PO DAILY Supplement 06/29/24
duloxetine 60 mg capsule,delayed release (Cymbalta) 60 mg PO DAILY Mental Health/Anxiety 06/29/24
hydrochlorothiazide 25 mg tablet 25 mg PO DAILY Fluid Retention/Swelling 06/29/24
metoprolol succinate 50 mg tablet,extended release 24 hr (Toprol XL) 50 mg PO DAILY Heart Disease/Condition 06/29/24
mirtazapine 15 mg tablet 15 mg PO DAILY Sleep 06/29/24
therapeutic multivitamin 1 tab PO DAILY Supplement 06/29/24
valsartan 160 mg tablet 160 mg PO DAILY Blood Pressure 06/29/24
folic acid 1 mg tablet 1 mg PO DAILY #30 tabs 07/03/24
naltrexone 50 mg tablet 50 mg PO HS Alcohol Abstinence #30 tabs 07/03/24
thiamine HCl (vitamin B1) 100 mg tablet 100 mg PO BID #30 tabs 07/03/24
Review of Systems
-
History Source: Patient
A 12 point ROS was completed and negative except as noted: Yes
Constitutional: Reports No Symptoms
EENT: Reports No Symptoms
Respiratory: Reports See HPI
Cardiac: Reports See HPI
Abdomen/GI: Reports No Symptoms
: Reports No Symptoms
Musculoskeletal: Reports No Symptoms
Skin: Reports No Symptoms
Neurological: Reports No Symptoms
Endocrine: Reports No Symptoms
Hematologic/Lymphatic: Reports No Symptoms
Psych: Reports No Symptoms
Physical Exam
Vital Signs
Vital Signs
Temp Pulse Resp BP Pulse Ox
98.5 F 76 20 126/96 100
07/13/24 12:05 07/13/24 15:58 07/13/24 15:42 07/13/24 16:00 07/13/24 16:00
Physical Exam
General: Well Developed, Well Nourished and No Apparent Distress
HEENT: NormoCephalic, Moist mucous membranes and Atraumatic
Respiratory: Clear
Cardiac: S1/S2, Regular Rhythm and Peripheral Edema; No Murmur or Rub
GI: Soft, Non Tender, Non Distended and Normal Bowel Sounds; No Organomegaly
Rectal: Deferred by Provider
Musculoskeletal: No Clubbing, No Cyanosis and No Edema
Skin: No Rash
Neuro: Nonfocal/grossly intact
Laboratory Results
-
07/13/24 12:24
07/13/24 12:24
Laboratory Results
Total Bilirubin < 0.1 mg/dl (0.2-1.3) L 07/13/24 12:24
AST 40 U/L (14-36) H 07/13/24 12:24
ALT 36 U/L (0-35) H 07/13/24 12:24
Alkaline Phosphatase 50 U/L (38-126) 07/13/24 12:24
Troponin I < 0.012 ng/ml 07/13/24 12:24
Data Reviewed
-
Lab Data: Labs Reviewed by me
Old Records: Reviewed
Impression/Plan
-
IMPRESSION:
PLAN:
# Acute CHF exacerbation
-BNP of 530 from 2 7
-Chest x-ray unremarkable
-Check I's and O's, daily weights
-40 IV Lasix daily
-Prior echo showed EF of 70 to 75%
-Cardiology consulted
# Itching after alcohol cessation likely chronic withdrawal symptom
-no other signs of withdrawal
-Should hopefully decrease over time
Former alcohol use disorder
-No alcohol since prior
-Continue naltrexone
Essential hypertension
-Continue metoprolol
-Continue losartan
Anxiety/depression
-Continue mirtazapine, duloxetine
GERD
History of gastric bypass
Former smoker
Osteoarthritis
Full code
DVT prophylaxis�heparin
Cardiac diet
[2024-07-13] MEDS: HEPARIN 5000 UNITS SC (20:20)
[2024-07-13] MEDS: FOLVITE 1 MG PO (21:43)
[2024-07-13] MEDS: REMERON 15 MG PO (21:43)
[2024-07-13] MEDS: VITAMIN B1 100 MG PO (21:43)
[2024-07-13] MEDS: REVIA 50 MG PO (21:43)
[2024-07-14 04:00] VITALS: BP 148/78
[2024-07-14 05:00] VITALS: BMI 37.5
--- NOTE | 2024-07-14 08:30 | CON.CAR ---
Addendum entered and electronically signed by Thee Sanders MD 07/14/24 10:26:
I saw and examined the patient.
The OIL TANKER CAPTAIN's note was reviewed and I agree with the note.
Comment: 69 y/o female with hypertension, GERD, anxiety/depression, and ETOH abuse (no ETOH since recent admission earlier this month). She was doing well at home but when reached the weight she was instructed to take Lasix that, she did not
respond after 2 days. She had some dyspnea on exertion and lower extremity edema. She has not been drinking. She may have had some dietary noncompliance over the holidays. By enlarge, she has been trying to follow her CHF to plan. She is feeling
much better with diuresis but still has abd distension. On exam, she has a regular rate and rhythm normal S1-S2 1 out of 6 crescendo decrescendo murmur at the right upper sternal border, no rubs or no gallops. Lungs clear to auscultation
bilaterally extremities warm well-perfused. Abdomen is soft. Overall, she has acute heart failure with preserved EF in the setting of dietary noncompliance and an effective diuretic dosing. Would diurese today with IV twice daily dosing and
likely home tomorrow. This will require intensive monitoring while inpatient. She will need a standing daily dose of Lasix. I explained how to appropriately use this. I congratulated her for remaining free of alcohol use. CHF education will be
provided.
Original Note:
Consultation
Consultation Request
Date/Time Consultation Requested: 07/13/24 2971
Date/Time Consultation Performed: 07/14/24 0830
Requesting Provider: Dr. Baez
Performing Provider: Priyanka SANCHEZ for Dr. Sanders
Reason for Consultation: CHF
Medical History
-
Chief Complaint: weight gain, BARFIELD
History of Present Illness:
69 y/o female with hypertension, GERD, anxiety/depression, and ETOH abuse (no ETOH since recent admission earlier this month). She was volume overloaded on recent admission. She was diuresed with IV lasix. Her HCTZ was stopped. Plan was for PRN
lasix. She is back for weight gain and BARFIELD. She took lasix when she was 187 lbs x 2 days and weight did not change. Then she saw she was 192 lbs and came in. She also noted she has BARFIELD and LE edema and abdominal bloating. She is admitted for
management of CHF and is s/p dose IV lasix. Of note, she told me she did not have extra sodium/fluid, but nursing let me know that she did report she was not following a sodium/fluid restriction.
Past Medical History
Past Medical History: CHF, GERD, HTN and Psychiatric (anxiety, depression, ETOH abuse)
Social History
Tobacco: Former Smoker
Alcohol: Other (Chronic ETOH, but has not had any ETOH since last admission)
Family History
Family History: CAD (2 sisters have CAD) and Other (mom had stroke at 63, dad 39 cardiac arrest)
Allergies / Home Medications
Allergy/AdvReac Type Severity Reaction Status Date / Time
sulfamethoxazole Allergy Itching Verified 07/13/24 12:09
[From Bactrim]
trimethoprim [From Bactrim] Allergy Itching Verified 07/13/24 12:09
�Medication �Instructions �Recorded �Confirmed �Type
ascorbic acid 30 mg-collagen, 1 tab PO DAILY Supplement 06/29/24 07/13/24 History
hydrolyzed 833.3 mg tablet
(Collagen Skin Renewal)
duloxetine 60 mg capsule,delayed 60 mg PO DAILY Mental 06/29/24 07/13/24 History
release (Cymbalta) Health/Anxiety
metoprolol succinate 50 mg 50 mg PO DAILY Heart 06/29/24 07/13/24 History
tablet,extended release 24 hr Disease/Condition
(Toprol XL)
mirtazapine 15 mg tablet 15 mg PO HS Sleep 06/29/24 07/13/24 History
therapeutic multivitamin 1 tab PO DAILY Supplement 06/29/24 07/13/24 History
valsartan 160 mg tablet 160 mg PO DAILY Blood Pressure 06/29/24 07/13/24 History
naltrexone 50 mg tablet 50 mg PO HS Alcohol Abstinence #30 07/03/24 07/13/24 Rx
tabs
folic acid 1 mg tablet 1 mg PO HS Supplement 07/13/24 07/13/24 History
furosemide 20 mg tablet 20 mg PO DAILY Fluid 07/13/24 07/13/24 History
Retention/Swelling
thiamine HCl (vitamin B1) 100 mg 100 mg PO HS Supplement 07/13/24 07/13/24 History
tablet
Review of Systems
-
History Source: Patient
All other systems: Negative unless noted
Constitutional: Weight Gain
Respiratory: Trouble Breathing (BARFIELD)
Musculoskeletal: Edema
Physical Exam
Vital Signs
Temp Pulse Resp BP Pulse Ox
98.3 F 72 18 148/78 95
07/14/24 04:00 07/14/24 04:00 07/14/24 04:00 07/14/24 04:00 07/14/24 04:00
Lab Results
Troponin I < 0.012 ng/ml 07/13/24 12:24
Gxc-U-Xyleueuymxc Pept 531 pg/ml 07/13/24 12:24
Physical Exam
General: Well Developed, Well Nourished and No Apparent Distress
HEENT: Normocephalic and Anicteric
Respiratory: Crackles (left base)
Cardiac: Regular Rhythm
Musculoskeletal: Edema (trace BLE edema)
Skin: Warm and Dry
Neuro: AO x 3
Psych: Calm
Impression / Plan
-
Awivl-vn-tbpydfy HFpEF:
-recent echo as noted
-agree with IV Lasix, which requires intensive monitoring- likely adjust to BID- labs this AM pending
-was 82 kg at recent d/c, now 84 kg
-nursing tells me she reported not following a fluid/sodium restriction
-CHF education and diet
-of note, she was previously on hctz, which was stopped. Will likely need daily lasix at d/c.
HTN:
-continue BB and ARB and monitor with diuresis
ETOH abuse:
-hasn't had ETOH since recent admit- encourage continued abstinence (which I did today)
pSVT:
-brief <6 seconds-noted on monitor
-continue BB and follow telemetry
Data Reviewed
-
EKG: Tracing Personally Visualized and interpreted (NSR)
Radiology: Report Reviewed by me (CXR: No acute cardiopulmonary abnormality.)
Medical Tests (Nuc Med, Echo etc): Report Reviewed by me (Echo 06/30/24: Normal left ventricular size with hyperdynamic systolic function and no regional wall motion abnormalities. LVEF 70-75%. Moderate concentric left ventricular hypertrophy. Mid
LV-cavitary gradient of at least 14 mmHg. Mild aortic stenosis. Mild tricuspid regurgitation)
Labs: Labs Reviewed by me
--- NOTE | 2024-07-14 08:34 | W.PN.HOSP.TC ---
Addendum entered and electronically signed by Kj Uribe MD 07/14/24 14:02:
Acute HFpEF exacerbation
-Continue IV diuresis
-Monitor I's and O's
-Follow renal function
-Keep K greater than 4 magnesium greater than 2
-On discharge discontinue thiazides
-Will require daily maintenance of Lasix
-Heart failure diet
Original Note:
Today's Communication/Plan
-
.
Assessment / Plan
Assessment / Plan
Ms. Elo Mcdaniel is a 69yo F pmh HFpEF (EF 70-75%), alcoholic cardiomyopathy, alcoholic liver disease, HTN, and alcohol use disorder admitted for a CHF exacerbation.
Acute CHF exacerbation
HFpEF
-Chest x-ray unremarkable
-Check I's and O's, daily weights, bmp, mg
-40mg IV Lasix BID
-06/30/24 echo - EF 70-75%
- Follows w Dr. Sanders outpatient
-Cardiology consulted
Itching after alcohol cessation likely chronic withdrawal symptom
-no other signs of withdrawal
-Should hopefully decrease over time
Former alcohol use disorder
-No alcohol since prior admission
-Continue naltrexone
Essential hypertension
-Continue metoprolol
-Continue losartan
Anxiety/depression
-Continue mirtazapine, duloxetine
Diet: cardiac diet
DVT ppx: heparin
Code status: FULL CODE
Anticipated Discharge: Within 24 hours
Subjective/Interval History
-
Date of Service: July 14, 2024
Ms. Elo Mcdaniel is a 69yo F pmh HFpEF (EF 70-75%), alcoholic cardiomyopathy, alcoholic liver disease, HTN, and alcohol use disorder admitted for a CHF exacerbation. She was discharged 10 days ago for a CHF exacerbation. Pt was experiencing
weight gain and BARFIELD. Today, patient denies dyspnea and states her leg swelling has improved.
Objective Data
-
Labs:
Laboratory Results
07/14/24
06:00
WBC Pending
Hgb Pending
Hct Pending
Plt Count Pending
Sodium Pending
Potassium Pending
Chloride Pending
Carbon Dioxide Pending
BUN Pending
Creatinine Pending
Glucose Pending
Calcium Pending
Total Bilirubin Pending
AST Pending
ALT Pending
Alkaline Phosphatase Pending
Vital Signs:
Vital Signs
Temp Pulse Resp BP Pulse Ox
98.3 F 72 18 148/78 95
07/14/24 04:00 07/14/24 04:00 07/14/24 04:00 07/14/24 04:00 07/14/24 04:00
Review of Systems
-
History Source: Patient
Constitutional: Reports No Symptoms
EENT: Reports No Symptoms Reported
Respiratory: Reports No Symptoms
Cardiac: Reports No Symptoms
Abdomen/GI: Reports No Symptoms
Genitourinary: Reports No Symptoms
Musculoskeletal: Reports Edema
Skin: Reports No Symptoms
Neuro: Reports No Symptoms
Physical Exam
-
General: Well Developed, Well Nourished and Comfortable
HEENT: Normocephalic and Atraumatic
Respiratory: Clear to Auscultation
Cardiac: Regular Rhythm and S1/S2
GI: Soft, Nontender, Nondistended and Normal Bowel Sounds
Musculoskeletal: No Clubbing, No Cyanosis, Edema, Right Lower Extrem (trace) and Edema, Left Lower Extrem (trace)
Skin: Warm and Dry
Neuro: AO x 3
Psych: Calm
[2024-07-14] MEDS: DIOVAN 160 MG PO (08:41)
[2024-07-14] MEDS: HEPARIN 5000 UNITS SC ×2 (08:42→20:04)
[2024-07-14] MEDS: CYMBALTA DELAYED RELEASE 60 MG PO (08:42)
[2024-07-14] MEDS: LASIX 40 MG IV ×2 (08:43→16:48)
[2024-07-14] MEDS: TOPROL XL 50 MG PO (08:44)
[2024-07-14] MEDS: THERAGRAN 1 TABLET PO (08:44)
[2024-07-14] MEDS: FLUSH (NSS) 2 FLUSH IV ×2 (08:44→16:49)
[2024-07-14 09:34] LABS: % Basophils 1.3 % (0-2); % Eosinophils 3.4 % (0-6); % Immature Granulocytes 0.6 % (0-0.5); % Lymphocytes 28.6 % (20.5-51.1); % Monocytes 10.3 % (1.7-9.3); % Neutrophils 55.8 % (42.2-75.2); Absolute Basophils 0.1 10^3/uL (0-0.2); Absolute Eosinophils 0.2 10^3/uL (0-0.7); Absolute Lymphocytes 1.5 10^3/uL (1.2-3.4); Absolute Monocytes 0.5 10^3/uL (0.1-0.6); Absolute Neutrophils 2.9 10^3/uL (1.4-6.5); Hematocrit 33.4 % (37.0-47.0); Mean Corp Hgb Conc. 32.9 g/dL (33.0-37.0); Mean Corpuscular Hgb 32.2 pg (27.0-31.0); Mean Corpuscular Volume 97.7 fL (81.0-99.0); Mean Platelet Volume 9.3 fL (7.4-10.4); Nucleated Red Blood Cells % 0 %; Platelet Count 362 10^3/uL (130-400); Red Blood Cell Count 3.42 10^6/uL (4.20-5.40); Red Cell Dist. Width 12.5 % (11.5-14.5); White Blood Cell Count 5.2 10^3/uL (4.8-10.8)
[2024-07-14 10:12] LABS: ALT (SGPT) 32 U/L (0-35); AST (SGOT) 36 U/L (14-36); Albumin 3.8 g/dl (3.5-5.0); Alkaline Phosphatase 47 U/L (38-126); Blood Urea Nitrogen 13 mg/dl (7-17); Calcium 9.2 mg/dl (8.4-10.2); Carbon Dioxide 26 mmol/L (22-30); Chloride 103 mmol/L (98-107); Estimated Creatinine Clearance 71 ml/min; Glucose 141 mg/dl (70-99); Potassium 3.9 mmol/L (3.5-5.1); Sodium 139 mmol/L (135-145); Total Bilirubin 0.1 mg/dl (0.2-1.3); Total Protein 6.1 g/dl (6.3-8.2); eGFR > 60.00
--- NOTE | 2024-07-14 11:35 | CM ---
Pt seen bedside. Initial assessment completed. Pt had previous admission (06/29-07/03).
Pt reports that she lives w/ son, [id number] and granddaughter in a single story home. Home has ramp access.
Pt denies SNF/VN/PT hx.
Address, point of contact and insurance verified
PCP: Dr. Esteban
Pharmacy: [facility]
Pt currently admitted as OBS. [facility] form reviewed, pt given copy, copy placed on chart
Family will transport home at d/c
Plan: Anticipate home; no needs
CM will cont to follow for d/c planning
[2024-07-14 11:56] VITALS: BP 122/72
[2024-07-14 16:09] VITALS: BP 154/74
[2024-07-14 16:10] VITALS: BMI 36.7
[2024-07-14] MEDS: FOLVITE 1 MG PO (20:04)
[2024-07-14] MEDS: REMERON 15 MG PO (20:05)
[2024-07-14] MEDS: REVIA 50 MG PO (20:05)
[2024-07-14] MEDS: VITAMIN B1 100 MG PO (20:05)
[2024-07-14 20:25] VITALS: BP 153/84
[2024-07-15] VITALS (7 sets, daily range): BP systolic 101–139; BP diastolic 68–86; BMI 36.8
[2024-07-15] MEDS: THERAGRAN 1 TABLET PO (08:41)
[2024-07-15] MEDS: DIOVAN 160 MG PO (08:41)
[2024-07-15] MEDS: CYMBALTA DELAYED RELEASE 60 MG PO (08:41)
[2024-07-15] MEDS: TOPROL XL 50 MG PO (08:41)
[2024-07-15] MEDS: LASIX 40 MG IV ×2 (08:42→16:48)
[2024-07-15] MEDS: HEPARIN 5000 UNITS SC ×2 (08:42→21:15)
--- NOTE | 2024-07-15 09:59 | W.PN.CD ---
Today's Communication / Plan
-
continue IV diuresis
transition to po tomorrow
labs in 1 week
f/u up and lab rx in chart
I will see again at your request.
Impression / Plan
-
Oxwac-ss-qzxiqzr HFpEF:
-recent echo as noted
-agree with IV Lasix, which requires intensive monitoring
-nice response so far, will stay for another day of IV BID
-was 82 kg at recent d/c may feel better even lower
-will discharge on furosemide 40mg po daily likely tomorrow
-will check renal panel in 1 week--rx in chart
-CHF education and diet
-of note, she was previously on hctz, which was stopped
HTN:
-continue BB and ARB and monitor with diuresis
ETOH abuse:
-hasn't had ETOH since recent admit- encourage continued abstinence
pSVT:
-brief <6 seconds-noted on monitor on admission
-continue BB and follow telemetry
Subjective:
feeling better, still a bit bloated, would like to stay for another dose of diuretic.
Physical Exam
Vital Signs/Labs
Vital Signs
Temp Pulse Resp BP Pulse Ox
98.6 F 68 18 133/70 94
07/15/24 08:19 07/15/24 08:41 07/15/24 08:19 07/15/24 08:41 07/15/24 08:19
07/14/24 07/15/24 07/16/24
06:59 06:59 06:59
Actual Weight 84.096 kg 82.554 kg
07/13/24
12:24
Evz-R-Icqarkzqetl Pept 531
LAB Results
07/13/24
12:24
Troponin I < 0.012
Physical Exam
Constitutional: No acute distress
Cardiovascular: Rhythm & rate is regular, Pedal edema is absent, JVD pressure is normal, Systolic murmur absent and Diastolic murmur absent
Respiratory: Respiratory effort normal, Lungs clear to auscul., Wheeze Absent, Crackles Absent and Rhonchi Absent
Neuro/Psych: AO x 3
Data Reviewed
-
Date of Service: July 15, 2024
EKG: Other (tele sinus)
--- NOTE | 2024-07-15 10:58 | W.PN.HOSP.TC ---
Addendum entered and electronically signed by Kj Uribe MD 07/15/24 16:23:
Acute HFpEF exacerbation
-Continue IV diuresis
-Monitor I's and O's
-Follow renal function
-Keep K greater than 4 magnesium greater than 2
-On discharge discontinue thiazides
-Will require daily maintenance of Lasix
-Heart failure diet
Plan to transition to PO diuretics tomorrow and dc home
Will need repeat BMP in 1 week
Original Note:
Today's Communication/Plan
-
.
Assessment / Plan
Assessment / Plan
Ms. Elo Mcdaniel is a 69yo F pmh HFpEF (EF 70-75%), alcoholic cardiomyopathy, alcoholic liver disease, HTN, and alcohol use disorder admitted for a CHF exacerbation.
Acute CHF exacerbation
HFpEF
-Chest x-ray unremarkable
-Check I's and O's, daily weights, bmp, mg
-40mg IV Lasix BID
-06/30/24 echo - EF 70-75%
- Follows w Dr. Sanders outpatient
-Cardiology consulted
- monitor overnight
Itching after alcohol cessation likely chronic withdrawal symptom
-no other signs of withdrawal
-Should hopefully decrease over time
Former alcohol use disorder
-No alcohol since prior admission
-Continue naltrexone
Essential hypertension
-Continue metoprolol
-Continue losartan
Anxiety/depression
-Continue mirtazapine, duloxetine
Diet: cardiac diet
DVT ppx: heparin
Code status: FULL CODE
Anticipated Discharge: Within 24 hours
Subjective/Interval History
-
Date of Service: July 15, 2024
Ms. Elo Mcdaniel is a 69yo F pmh HFpEF (EF 70-75%), alcoholic cardiomyopathy, alcoholic liver disease, HTN, and alcohol use disorder admitted for a CHF exacerbation. No acute overnight events. Pt reports her abdomen feels swollen, but no lower
extremity swelling.
Objective Data
-
Labs:
Laboratory Results
07/15/24
06:00
WBC Pending
Hgb Pending
Hct Pending
Plt Count Pending
Sodium Pending
Potassium Pending
Chloride Pending
Carbon Dioxide Pending
BUN Pending
Creatinine Pending
Glucose Pending
Calcium Pending
Vital Signs:
Vital Signs
Temp Pulse Resp BP Pulse Ox
98.6 F 68 18 133/70 94
07/15/24 08:19 07/15/24 08:41 07/15/24 08:19 07/15/24 08:41 07/15/24 08:25
I&O
07/14/24 07/15/24 07/16/24
06:59 06:59 06:59
Intake Total 1320 / 1320
Balance 1320 / 1320
Review of Systems
-
History Source: Patient
Constitutional: Reports No Symptoms
EENT: Reports No Symptoms Reported
Respiratory: Reports No Symptoms
Cardiac: Reports No Symptoms
Abdomen/GI: Reports Bloated; Denies Abdominal Pain, Nausea, Vomiting or Diarrhea
Musculoskeletal: Reports No Symptoms
Skin: Reports No Symptoms
Neuro: Reports No Symptoms
Physical Exam
-
General: Well Developed, Well Nourished and Comfortable
HEENT: Normocephalic, Atraumatic and Anicteric
Respiratory: Clear to Auscultation
Cardiac: Regular Rhythm and S1/S2
GI: Soft, Nontender, Nondistended and Normal Bowel Sounds
Musculoskeletal: No Clubbing, No Cyanosis and No Edema
Skin: Warm and Dry
Neuro: AO x 3
Psych: Calm
[2024-07-15 13:20] LABS: Mean Corp Hgb Conc. 33.3 g/dL (33.0-37.0); Mean Corpuscular Hgb 31.9 pg (27.0-31.0); Mean Corpuscular Volume 95.8 fL (81.0-99.0); Mean Platelet Volume 9.3 fL (7.4-10.4); Platelet Count 423 10^3/uL (130-400); Red Blood Cell Count 4.07 10^6/uL (4.20-5.40); Red Cell Dist. Width 12.3 % (11.5-14.5); White Blood Cell Count 7.7 10^3/uL (4.8-10.8)
[2024-07-15 13:47] LABS: Blood Urea Nitrogen 21 mg/dl (7-17); Calcium 9.7 mg/dl (8.4-10.2); Carbon Dioxide 30 mmol/L (22-30); Chloride 98 mmol/L (98-107); Estimated Creatinine Clearance 55 ml/min; Glucose 91 mg/dl (70-99); Magnesium 2.2 mg/dl (1.6-2.3); Potassium 4.2 mmol/L (3.5-5.1); Sodium 139 mmol/L (135-145); eGFR > 60.00
[2024-07-15] MEDS: REVIA 50 MG PO (21:15)
[2024-07-15] MEDS: REMERON 15 MG PO (21:15)
[2024-07-15] MEDS: FOLVITE 1 MG PO (21:15)
[2024-07-15] MEDS: VITAMIN B1 100 MG PO (21:15)
[2024-07-16 02:46] VITALS: BP 122/72
[2024-07-16 06:00] VITALS: BMI 36.7
[2024-07-16 07:02] LABS: Hematocrit 37.3 % (37.0-47.0); Hemoglobin 12.3 g/dL (12.0-16.0); Mean Corpuscular Hgb 31.9 pg (27.0-31.0); Mean Corpuscular Volume 96.6 fL (81.0-99.0); Mean Platelet Volume 9.2 fL (7.4-10.4); Platelet Count 377 10^3/uL (130-400); Red Blood Cell Count 3.86 10^6/uL (4.20-5.40); Red Cell Dist. Width 12.4 % (11.5-14.5); White Blood Cell Count 6.9 10^3/uL (4.8-10.8)
[2024-07-16 07:20] VITALS: BP 109/63
[2024-07-16 07:28] LABS: Blood Urea Nitrogen 21 mg/dl (7-17); Calcium 9.2 mg/dl (8.4-10.2); Carbon Dioxide 33 mmol/L (22-30); Chloride 97 mmol/L (98-107); Estimated Creatinine Clearance 49 ml/min; Glucose 104 mg/dl (70-99); Magnesium 2.1 mg/dl (1.6-2.3); Potassium 3.8 mmol/L (3.5-5.1); Sodium 138 mmol/L (135-145); eGFR > 60.00
--- NOTE | 2024-07-16 08:29 | W.PN.HOSP.TC ---
Documented by User: Krystle Kaminski DO, Resident 07/16/24 08:31
Assessment / Plan
Assessment / Plan
Ms. Elo Mcdaniel is a 69yo F pmh HFpEF (EF 70-75%), alcoholic cardiomyopathy, alcoholic liver disease, HTN, and alcohol use disorder admitted for a CHF exacerbation.
Acute CHF exacerbation
HFpEF
-Chest x-ray unremarkable
-Check I's and O's, daily weights, bmp, mg
-40mg IV Lasix BID
-06/30/24 echo - EF 70-75%
- Follows w Dr. Sanders outpatient
-Cardiology consulted
- monitor overnight
MELLY
- Cr david from 0.7 to 1.0 in 48h
- adequately diuresed CHF exacerbation
Itching after alcohol cessation likely chronic withdrawal symptom
-no other signs of withdrawal
-Should hopefully decrease over time
Former alcohol use disorder
-No alcohol since prior admission
-Continue naltrexone
Essential hypertension
-Continue metoprolol
-Continue losartan
Anxiety/depression
-Continue mirtazapine, duloxetine
Diet: cardiac diet
DVT ppx: heparin
Code status: FULL CODE
Subjective/Interval History
-
Date of Service: July 16, 2024
Ms. Elo Mcdaniel is a 69yo F pmh HFpEF (EF 70-75%), alcoholic cardiomyopathy, alcoholic liver disease, HTN, and alcohol use disorder admitted for a CHF exacerbation.
Objective Data
-
Labs:
Laboratory Results
07/16/24
06:25
WBC 6.9
Hgb 12.3
Hct 37.3
Plt Count 377
Sodium 138
Potassium 3.8
Chloride 97 L
Carbon Dioxide 33 H
BUN 21 H
Creatinine 1.0
Glucose 104 H
Calcium 9.2
Vital Signs:
Vital Signs
Temp Pulse Resp BP Pulse Ox
98.8 F 73 18 122/72 94
07/16/24 02:46 07/16/24 02:46 07/16/24 02:46 07/16/24 02:46 07/16/24 02:46
I&O
07/15/24 07/16/24 07/17/24
06:59 06:59 06:59
Intake Total 1320 / 1320 1500 / 1500
Balance 1320 / 1320 1500 / 1500

Documented by User: Kj Uribe MD 07/16/24 12:14
Today's Communication/Plan
-
Discharge home
More than 30 minutes spent in discharge including
Final examination of the patient
Summarizing hospital stay
Instructions for continuing care to all relevant caregivers
Preparation of discharge records, prescriptions, and referral forms
Total time spent (in minutes): 33mins
Assessment / Plan
Assessment / Plan
Ms. Elo Mcdaniel is a 69yo F pmh HFpEF (EF 70-75%), alcoholic cardiomyopathy, alcoholic liver disease, HTN, and alcohol use disorder admitted for a CHF exacerbation.
Acute CHF exacerbation
HFpEF
-Chest x-ray unremarkable
-Check I's and O's, daily weights, bmp, mg
-40mg IV Lasix BID --> transition to p.o. diuretics 40 mg daily
--If note greater than 3 pound weight gain in 1 day, greater than 5 pounds in 5 days take additional tablet
--Repeat BMP in 1 week with outpatient cardiology
-06/30/24 echo - EF 70-75%
- Follows w Dr. Sanders outpatient
-Cardiology consulted
- monitor overnight
MELLY -resolved stable
- Cr david from 0.7 to 1.0 in 48h
- adequately diuresed CHF exacerbation
Itching after alcohol cessation likely chronic withdrawal symptom
-no other signs of withdrawal
-Should hopefully decrease over time
Former alcohol use disorder
-No alcohol since prior admission
-Continue naltrexone
Essential hypertension
-Continue metoprolol
-Continue losartan
-- Stop any further use of hydrochlorothiazide as this has been replaced with Lasix daily
Anxiety/depression
-Continue mirtazapine, duloxetine
Diet: cardiac diet
DVT ppx: heparin
Code status: FULL CODE
Anticipated Discharge: Today
Subjective/Interval History
-
Date of Service: July 16, 2024
Ms. Elo Mcdaniel is a 69yo F h HFpEF (EF 70-75%), alcoholic cardiomyopathy, alcoholic liver disease, HTN, and alcohol use disorder admitted for a CHF exacerbation.
Attending attestation
Seen and examined. No new complaints. No acute overnight events. Has remained off of supplemental oxygen. States that she is feeling better. Does admit to still having some bloating however improved significantly.
Physical Exam
-
General: Well Developed, Well Nourished, No Apparent Distress and Comfortable
HEENT: Normocephalic and Atraumatic
Respiratory: Clear to Auscultation
Cardiac: Regular Rhythm and S1/S2
GI: Soft, Nontender, Nondistended and Normal Bowel Sounds
Musculoskeletal: Negative Edema, Right Lower Extrem or Edema, Left Lower Extrem
Neuro: Awake, Alert, Oriented and AO x 3
Psych: Calm
[2024-07-16] MEDS: HEPARIN 5000 UNITS SC (09:10)
[2024-07-16] MEDS: DIOVAN 160 MG PO (09:10)
[2024-07-16] MEDS: LASIX 40 MG IV (09:10)
[2024-07-16] MEDS: THERAGRAN 1 TABLET PO (09:10)
[2024-07-16] MEDS: CYMBALTA DELAYED RELEASE 60 MG PO (09:10)
[2024-07-16] MEDS: TOPROL XL 50 MG PO (09:10)
[2024-07-16 11:35] VITALS: BP 119/68
--- NOTE | 2024-07-16 12:14 | W.DCSUMMARY ---
Discharge Summary
Discharge Data
Date of Admission: 07/13/24
Date of Discharge: 07/16/24
-
Pending Results: No
Hospital Course
69-year-old female past medical history of hypertension, alcohol use disorder, anxiety/depression, GERD, gastric bypass, former smoker, osteoarthritis
Presented with findings consistent of acute heart failure exacerbation with symptoms of abdominal bloating and weight gain. Was treated with IV diuretics evaluated by cardiology. Recommended to discontinue further use of hydrochlorothiazide. Will
start taking 40 mg Lasix daily. If note 3 pound weight gain in 1 day or 5 pounds in 5 days take additional tablet. Repeat BMP in 1 week with cane feeder.
Discharge Plan
-
Patient Disposition: Home (Routine Discharge)
Discharge Diagnosis/Procedures: Acute heart failure exacerbation
Condition: Good
Diet: Low Fat, Low Cholesterol, Low Sodium and Restrict fluids to 48 oz
Activity: As tolerated
Blood Work: renal function 07/22/[address] Sanders
Activity Restrictions/Additional Instructions:
Presented with findings consistent of acute heart failure exacerbation with symptoms of abdominal bloating and weight gain. Was treated with IV diuretics evaluated by cardiology. Recommended to discontinue further use of hydrochlorothiazide. Will
start taking 40 mg Lasix daily. If note 3 pound weight gain in 1 day or 5 pounds in 5 days take additional tablet. Repeat BMP in 1 week with cane feeder.
Instructions: Heart failure with preserved ejection fraction, *CBC Heart Failure Instructions
Referrals:
Chantell Felix CRNP [Specified Professional Personl] - 07/29/24 9:20 am
Indigo Esteban DO [Family Provider] -
Additional Discharge Medication Instructions: Stop hydrochlorothiazide
Prescriptions:
Continued
metoprolol succinate [Toprol XL] 50 mg Tablet Extended Release 24 Hr
50 mg PO DAILY
therapeutic multivitamin Tablet
1 tab PO DAILY
mirtazapine 15 mg Tablet
15 mg PO HS
valsartan 160 mg Tablet
160 mg PO DAILY
duloxetine [Cymbalta] 60 mg Capsule,Delayed Release(Dr/Ec)
60 mg PO DAILY
Collagen Skin Renewal 30-833.3 mg Tablet
1 tab PO DAILY
naltrexone 50 mg Tablet
50 mg PO HS Qty: 30 0RF
thiamine HCl (vitamin B1) 100 mg tablet
100 mg PO HS
folic acid 1 mg tablet
1 mg PO HS
Changed
furosemide 20 mg Tablet
40 mg PO DAILY Qty: 30 0RF
Discharge Orders:
Discharge Patient (As Directed); Ordered 07/16/24
Ordered By: jK Uribe
Discharge Date and Time
Print Language: ARMENIAN
== END 2024-07-16 14:13 | disposition home or self-care (01) ==
LOC: 4 EAST ACU 16:59
PROVIDERS: Emergency Medicine; Nurse Practitioner; ADMITTING PHYSICIAN Hospitalist; ATTENDING PHYSICIAN Hospitalist; EMERGENCY PHYSICIAN Emergency Medicine; FAMILY PHYSICIAN Family Medicine; OTHER PHYSICIAN Internal Medicine Cardiovascular Disease
DX: I11.0 Hypertensive heart disease with heart failure (principal); I50.33 Acute on chronic diastolic (congestive) heart failure; R06.03 Acute respiratory distress; K21.9 Gastro-esophageal reflux disease without esophagitis; M19.90 Unspecified osteoarthritis, unspecified site; R60.9 Edema, unspecified; F32.A Depression, unspecified; F41.9 Anxiety disorder, unspecified; N17.9 Acute kidney failure, unspecified; I47.10 Supraventricular tachycardia, unspecified; K70.9 Alcoholic liver disease, unspecified; I42.9 Cardiomyopathy, unspecified; R14.0 Abdominal distension (gaseous); F10.11 Alcohol abuse, in remission; M79.621 Pain in right upper arm; Z87.891 Personal history of nicotine dependence; Z98.84 Bariatric surgery status; Z88.1 Allergy status to other antibiotic agents; Z88.2 Allergy status to sulfonamides; Z91.119 Patient's noncompliance with dietary regimen due to unspecified reason; Z82.49 Family history of ischemic heart disease and other diseases of the circulatory system; Z82.3 Family history of stroke; Z82.41 Family history of sudden cardiac death
CPT/HCPCS: 71046; 80048; 80053; 83735; 83880; 84484; 85025; 85027; 93005; 96374; 99285; G0378

== ENCOUNTER → 2024-07-23 12:54 | Outpatient (REF) | payer MEDICARE, SELFPAY ==
[2024-07-23 17:19] LABS: ALT (SGPT) 37 U/L (0-35); AST (SGOT) 36 U/L (14-36); Albumin 4.4 g/dl (3.5-5.0); Alkaline Phosphatase 70 U/L (38-126); Blood Urea Nitrogen 12 mg/dl (7-17); Calcium 9.7 mg/dl (8.4-10.2); Carbon Dioxide 32 mmol/L (22-30); Chloride 102 mmol/L (98-107); Glucose 107 mg/dl (70-99); Phosphorus 3.2 mg/dl (2.5-4.5); Sodium 141 mmol/L (135-145); Total Bilirubin 0.3 mg/dl (0.2-1.3); Total Protein 7.2 g/dl (6.3-8.2); eGFR > 60.00
== END ==
LOC: HWLAB 12:54
PROVIDERS: ATTENDING PHYSICIAN Internal Medicine Cardiovascular Disease; FAMILY PHYSICIAN Family Medicine
DX: R60.0 Localized edema (principal); F10.20 Alcohol dependence, uncomplicated; E87.1 Hypo-osmolality and hyponatremia; R79.89 Other specified abnormal findings of blood chemistry
CPT/HCPCS: 36415; 80053; 84100

== ENCOUNTER 2024-10-08 17:35 | Emergency (ER) | payer MEDICARE, SELFPAY ==
[2024-10-08 17:44] VITALS: BP 151/81
[2024-10-08 17:51] VITALS: BMI 35.2
--- NOTE | 2024-10-08 18:08 | ED.GENMED ---
History of Present Illness
General
Chief Complaint: Alcohol Problem
Source: patient and ambulance crew
Exam Limitations: none
Time Seen by Provider: 10/08/24 17:53
Nursing documentation reviewed up to this point in time: agreed with
History of Present Illness
History of Present Illness:
69-year-old female with past medical history of CHF hypertension presenting to the emergency department today after she was found drinking while working at [employer]. She claims that she has been very depressed and only wants to sleep. Denies any
overt of harming yourself or anyone else. Denies drinking daily.
Past History
Past History
ED Past Medical History: HTN
ED Past Surgical History: Gynecological and Other (hernia)
Social History
Tobacco: Non-smoker
Alcohol: Occasional
Living: with family
Review of Systems
Review of Systems
Allergies reviewed?: Yes
All Other Systems: ROS reviewed and negative except as documented in HPI and ROS
Phy Exam
Physical Exam
Physical Exam:
GENERAL: Alert , in no apparent distress
EYE: pupils equal and reactive
NECK: Supple, no significant adenopathy.
ENT: o/p clr, mmm.
CARDIAC: Regular rate and rhythm .
LUNGS: Clear breath sounds bilaterally, no acute respiratory distress, no wheezes/rales/rhonchi
ABDOMEN: Soft, without focal tenderness, no r/g, no cvat
NEUROLOGICAL: Alert and oriented, no focal neuro deficits
SKIN: Warm and dry, skin intact.
MUSCULOSKELETAL: No edema, well perfused.
PSYCH: Normal and appropriate interaction.
Scores
Withdrawal Assessment of Alcohol
Withdrawal Assessment Completed?: Not applicable
Course
Orders/Labs/Results
Orders:
Orders
10/08/24 17:55
Crisis Consult Urgent
Reason for Consult: pt. reports she just wants to go to sleep
10/08/24 18:01
Crisis Consult Urgent
Reason for Consult: depression, resources
Vital Signs
Initial and Last Documented VS:
Initial Vital Signs
Temp Pulse Resp BP Pulse Ox
97.8 F 68 15 151/81 97
10/08/24 17:44 10/08/24 17:44 10/08/24 17:44 10/08/24 17:44 10/08/24 17:44
Last Documented Vital Signs
Temp Pulse Resp BP Pulse Ox
97.8 F 68 15 151/81 97
10/08/24 17:44 10/08/24 17:44 10/08/24 17:44 10/08/24 17:44 10/08/24 17:44
MDM/Problems Addressed
MDM/Problems Addressed:
69-year-old female presenting to the emergency department today after she was drinking at work. She claims that she has been very depressed. Denies any specific thoughts of harm herself or others. Does not have a psychiatrist. Patient was given
resources for alcohol use disorder. She claims that she has only been drinking over the past few days but has been an alcoholic in the past. She will follow-up closely with [facility] no medical symptoms at this point vital signs normal. Stable
for discharge. The son will directly to [facility].
*Critical Care Note
Total Time (30-74mins, 75-104mins- exclusive of procedures): Not Applicable
ED Attending Note
-
Portions of this chart may have been created with voice recognition software.� Occasional wrong word or��sound alike� substitutions may have occurred due to the inherent limitations of voice recognition software.
Discharge Plan
Departure
Patient Disposition: Home (Routine Discharge)
Date of Disposition: 10/08/24
Time of Disposition: 19:10
Patient with high blood pressure during this ER visit?: No
Condition: Good
Covid-19: Not Applicable
Discharge Problem:
Alcohol abuse, uncomplicated
Instructions: Alcohol Use Disorder (DC)
Prescriptions:
No Action
metoprolol succinate [Toprol XL] 50 mg Tablet Extended Release 24 Hr
50 mg PO DAILY
therapeutic multivitamin Tablet
1 tab PO DAILY
mirtazapine 15 mg Tablet
15 mg PO HS
valsartan 160 mg Tablet
160 mg PO DAILY
duloxetine [Cymbalta] 60 mg Capsule,Delayed Release(Dr/Ec)
60 mg PO DAILY
Collagen Skin Renewal 30-833.3 mg Tablet
1 tab PO DAILY
naltrexone 50 mg Tablet
50 mg PO HS Qty: 30 0RF
thiamine HCl (vitamin B1) 100 mg tablet
100 mg PO HS
folic acid 1 mg tablet
1 mg PO HS
furosemide 20 mg Tablet
40 mg PO DAILY Qty: 30 0RF
Referrals:
Indigo Esteban DO [Family Provider] -
Activity Restrictions/Additional Instructions:
You came to the emergency department today after drinking alcohol. Here there is no evidence of any medical emergency. Please follow-up closely with [facility]. Return for any worsening, new or concerning symptoms.
Interventions
Interventions:
*Risk Screen - Suicide Last Done: 10/08/24 17:51
*Neglect/Abuse Screening Last Done: 10/08/24 17:51
*ED- Fall Risk Assessment Last Done: 10/08/24 17:51
*ED COVID-19 Vaccine History Last Done: 10/08/24 17:51
ED- Neurological Assessment Last Done: 10/08/24 17:51
ED-Psychological Assessment Last Done: 10/08/24 17:51
Discharge Date and Time
Print Language: CHINESE
== END 2024-10-08 19:46 | disposition home or self-care (01) ==
LOC: EMR 17:35
PROVIDERS: EMERGENCY PHYSICIAN Emergency Medicine; FAMILY PHYSICIAN Family Medicine
DX: F10.10 Alcohol abuse, uncomplicated (principal); I11.0 Hypertensive heart disease with heart failure; I50.9 Heart failure, unspecified
CPT/HCPCS: 99283

== ENCOUNTER → 2025-02-24 14:40 | Outpatient (REF) | payer MEDICARE, SELFPAY | LOC: HWRCS 14:40 | PROVIDERS: ATTENDING PHYSICIAN Internal Medicine Cardiovascular Disease; FAMILY PHYSICIAN Family Medicine | DX: I50.32 Chronic diastolic (congestive) heart failure (principal); I10 Essential (primary) hypertension; R07.89 Other chest pain | CPT/HCPCS: 93306 ==

== ENCOUNTER → 2025-02-26 10:51 | Outpatient (REF) | payer MEDICARE, SELFPAY | LOC: RCS 10:51 | PROVIDERS: ATTENDING PHYSICIAN Internal Medicine Cardiovascular Disease; FAMILY PHYSICIAN Family Medicine | DX: I50.32 Chronic diastolic (congestive) heart failure (principal); I10 Essential (primary) hypertension; R07.89 Other chest pain | CPT/HCPCS: 93017 ==

== ENCOUNTER → 2025-03-03 10:59 | Outpatient (REF) | payer MEDICARE, SELFPAY ==
[2025-03-03 16:02] LABS: Blood Urea Nitrogen 17 mg/dl (7-17); Calcium 9.7 mg/dl (8.4-10.2); Carbon Dioxide 31 mmol/L (22-30); Chloride 103 mmol/L (98-107); Glucose 95 mg/dl (70-99); Potassium 4.4 mmol/L (3.5-5.1); Sodium 139 mmol/L (135-145); eGFR > 60.00
== END ==
LOC: HWRCS 10:59
PROVIDERS: ATTENDING PHYSICIAN Internal Medicine Cardiovascular Disease; FAMILY PHYSICIAN Family Medicine
DX: R07.89 Other chest pain (principal); I10 Essential (primary) hypertension; I50.32 Chronic diastolic (congestive) heart failure
CPT/HCPCS: 36415; 78452; 80048; 93017; A9500; J2785

== ENCOUNTER → 2025-03-26 10:48 | Outpatient (REF) | payer MEDICARE, SELFPAY ==
[2025-03-26 16:11] LABS: Blood Urea Nitrogen 33 mg/dl (7-17); Calcium 9.5 mg/dl (8.4-10.2); Carbon Dioxide 31 mmol/L (22-30); Chloride 95 mmol/L (98-107); Glucose 108 mg/dl (70-99); Potassium 5.2 mmol/L (3.5-5.1); Sodium 131 mmol/L (135-145); eGFR 48.70
== END ==
LOC: HWRAD 10:48
PROVIDERS: ATTENDING PHYSICIAN Internal Medicine; FAMILY PHYSICIAN Family Medicine; REFERRING PHYSICIAN Nurse Practitioner Gerontology
DX: R04.2 Hemoptysis (principal); I50.32 Chronic diastolic (congestive) heart failure
CPT/HCPCS: 36415; 71250; 80048

== ENCOUNTER → 2025-05-06 11:58 | Outpatient (REF) | payer MEDICARE, SELFPAY ==
[2025-05-06 15:33] LABS: Hematocrit 34.9 % (37.0-47.0); Hemoglobin 11.2 g/dL (12.0-16.0); Mean Corp Hgb Conc. 32.1 g/dL (33.0-37.0); Mean Corpuscular Volume 99.7 fL (81.0-99.0); Nucleated Red Blood Cells % 0 %; Platelet Count 384 10^3/uL (130-400); Red Cell Dist. Width 14.0 % (11.5-14.5)
[2025-05-06 15:40] LABS: ALT (SGPT) 30 U/L (0-35); AST (SGOT) 35 U/L (14-36); Albumin 4.6 g/dl (3.5-5.0); Alkaline Phosphatase 59 U/L (38-126); Blood Urea Nitrogen 15 mg/dl (7-17); Calcium 9.7 mg/dl (8.4-10.2); Carbon Dioxide 31 mmol/L (22-30); Chloride 102 mmol/L (98-107); Glucose 104 mg/dl (70-99); HDL Cholesterol 87 mg/dl; LDL Cholesterol, Calculated 104 mg/dl; Potassium 4.0 mmol/L (3.5-5.1); Sodium 136 mmol/L (135-145); Total Protein 7.2 g/dl (6.3-8.2); Very Low Density Lipoprotein 25 mg/dl (0-30); eGFR > 60.00
== END ==
LOC: HWLAB 11:58
PROVIDERS: ATTENDING PHYSICIAN Family Medicine
DX: F10.20 Alcohol dependence, uncomplicated (principal); I50.30 Unspecified diastolic (congestive) heart failure; I10 Essential (primary) hypertension; E78.00 Pure hypercholesterolemia, unspecified; Z00.00 Encounter for general adult medical examination without abnormal findings
CPT/HCPCS: 36415; 80053; 80061; 85025

== ENCOUNTER 2025-06-12 17:07 | Inpatient (IN) | payer MEDICARE, SELFPAY ==
[2025-06-12] VITALS (49 sets, daily range): BP systolic 75–238; BP diastolic 52–215; BMI 34.2; BMI 33.5; BMI 33.7
[2025-06-12 12:49] LABS: Hematocrit 43.0 % (37.0-47.0); Hemoglobin 14.4 g/dL (12.0-16.0); Mean Corp Hgb Conc. 33.5 g/dL (33.0-37.0); Mean Corpuscular Volume 95.1 fL (81.0-99.0); Nucleated Red Blood Cells % 0 %; Platelet Count 367 10^3/uL (130-400); Red Cell Dist. Width 13.2 % (11.5-14.5)
[2025-06-12 13:08] LABS: ALT (SGPT) 28 U/L (0-35); AST (SGOT) 37 U/L (14-36); Albumin 4.8 g/dl (3.5-5.0); Alkaline Phosphatase 68 U/L (38-126); Blood Urea Nitrogen 17 mg/dl (7-17); Calcium 9.9 mg/dl (8.4-10.2); Carbon Dioxide 30 mmol/L (22-30); Chloride 99 mmol/L (98-107); Glucose 129 mg/dl (70-99); Potassium 4.4 mmol/L (3.5-5.1); Sodium 137 mmol/L (135-145); Total Protein 7.8 g/dl (6.3-8.2); eGFR 48.70
[2025-06-12 13:24] LABS: COVID-19 Antigen Negative (Negative); Troponin I 2.380 ng/ml
[2025-06-12] MEDS: LOW STRENGTH ASPIRIN 324 MG PO (14:09)
[2025-06-12] MEDS: NITROSTAT (SUBLINGUAL) 0.4 MG SL ×3 (14:14→15:00)
--- NOTE | 2025-06-12 14:28 | ED.GENMED ---
History of Present Illness
General
Chief Complaint: Breathing Problem
Source: patient
Time Seen by Provider: 06/12/25 14:05
History of Present Illness
History of Present Illness:
This patient is a 70-year-old female presents emergency department with complaints of feeling weak all over associated with 'chest tightness' that she noticed this morning. She felt perfectly well yesterday and last evening when she went to bed.
This chest tightness continues but is improved and is noted to be at a level of 4 out of 10. She denies associated dyspnea, nausea, vomiting, diaphoresis, back pain, neck pain, headache, dizziness, leg swelling, or other complaints. This pain is
central without radiation and was gradual in onset.
Past History
Past History
ED Past Medical History: HTN, Psychiatric and Other (Heart failure, alcohol use disorder, reflux)
ED Past Surgical History: Gynecological and Other (hernia)
Social History
Tobacco: Non-smoker
Alcohol: Chronic alcoholic
Drug: None
Living: with family
Phy Exam
Physical Exam
Physical Exam:
GENERAL: Alert , in no apparent distress
EYE: pupils equal and reactive
NECK: Supple, no significant adenopathy.
ENT: o/p clr, mmm.
CARDIAC: Regular rate and rhythm .
LUNGS: Clear breath sounds bilaterally, no acute respiratory distress, no wheezes/rales/rhonchi
ABDOMEN: Soft, without focal tenderness, no r/g, no cvat
NEUROLOGICAL: Alert and oriented, no focal neuro deficits
SKIN: Warm and dry, skin intact.
MUSCULOSKELETAL: No edema, well perfused.
PSYCH: Normal and appropriate interaction.
Course
Orders/Labs/Results
Orders:
Orders
06/12/25 12:02
Electrocardiogram (*1) Urgent
Reason for Study: Chest Pain
EKG- Treatment ONCE
06/12/25 12:20
COVID-19 Antigen Urgent
Source: Nasal Swab
Complete Blood Count/With Diff Urgent
Comprehensive Metabolic Panel Urgent
Pro-BNP [NT-proBNP] Urgent
Troponin I Urgent
Influenza A+B Rapid Molecular Urgent
CORY Source: Nasal Swab
Specimen Description:
06/12/25 14:06
Aspirin Chewable [Low Strength Aspirin] 324 mg .ROUTE .STK-MED ONE
06/12/25 14:07
Electrocardiogram (*1) Urgent
Reason for Study: Chest Pain
06/12/25 14:08
EKG- Treatment ONCE
06/12/25 14:09
Aspirin Chewable [Low Strength Aspirin] 324 mg PO NOW STA
06/12/25 14:13
Nitroglycerin Sublingual [Nitrostat (Sublingual)] 0.4 mg SL [id number] PRN
06/12/25 14:16
PTT Urgent
Troponin I Urgent
06/12/25 14:48
PTT Urgent
Comment: Obtain baseline before beginning heparin infusion if not already collected
Heparin 4,000 units IV NOW STA
Nursing to Place Non Medication Order As Directed
Physician Order: PTT 6 hours after initial start of Heparin infusion
Above order entered?: Yes
06/12/25 15:00
Heparin 03731 Units/250 ml 25,000 units in 250 ml IV PER PROTOCOL
Weight to be used for heparin protocol in kilograms (kg):: 76.8
Protocol:: Cardiac Tx/Acute Coronary
PTT Goal Range to be used:: PTT 73 to 111 seconds
Order type:: Initial
INITIAL Infusion Dose (UNITS/KG/hr) & then follow protocol:: 12 units/kg/hr
Infusion Dose in UNITS/hr & then follow protocol (UNITS/hr):: 900
INFUSION RATE in mL/hr & then follow protocol (mL/hr):: 9
PTT less than or equal to 64 seconds:: Increase rate by 200 units/hr (+ 2 mL/hr)
PTT 64.1 to 72.9 seconds:: Increase rate by 100 units/hr (+ 1 mL/hr)
PTT 73 to 111 seconds:: Target Range. No change in rate.
PTT 111.1 to 130.9 seconds:: Decrease rate by 100 units/hr (- 1 mL/hr)
PTT 131 to 199.9 seconds:: HOLD for 1 hr. Then decrease rate by 200 units/hr (- 2 mL/hr)
PTT greater than or equal to 200 seconds:: HOLD for 2 hrs & Notify Provider. Then decrease by 200 units/hr (-
2 mL/hr)
Lab follow-up:: Each change, PTT q6h until 2 consecutive are therapeutic. Then PTT
daily.
06/12/25 15:10
Nitroglycerin 100 mg/250 ml [Nitroglycerin Premix] 100 mg in 250 ml IV NOW
Initial dose in mcg/min, then titrate:: 5
Titrate to keep:: SBP < 160 mmHg
Titrate by mcg/min:: 5 mcg/min, may increase by 10 mcg/min if dose > 20 mcg/min
Frequency of titrations (minutes):: every 3-5 minutes
Maximum dose in mcg/min:: 200
Begin to taper infusion when:: Remained at goal for 2hrs
Taper by mcg/min:: 5 mcg/min
Frequency of taper (minutes) if patient maintains goal:: 30
Taper to off?: Yes
If infusion off & no longer maintaining goal:: Contact Provider
06/12/25 15:16
Echo 2D MMode Color/Doppler Routine
Reason for Study: Shortness of breath, chest tightness
06/12/25 21:15
PTT Urgent
Comment: heparin 6 hour
Abnormal Lab Results
06/12/25 06/12/25
12:20 14:16
WBC 13.5 H 10^3/uL
(4.8-10.8)
MCH 31.9 H pg
(27.0-31.0)
Abs Immat Gran (auto) 0.1 H 10^3/uL
(0-0.05)
Absolute Neuts (auto) 11.3 H 10^3/uL
(1.4-6.5)
Absolute Lymphs (auto) 1.1 L 10^3/uL
(1.2-3.4)
Absolute Monos (auto) 0.9 H 10^3/uL
(0.1-0.6)
Neutrophils % 83.8 H %
(42.2-75.2)
Lymphocytes % 8.0 L %
(20.5-51.1)
APTT 20.6 L Sec
(23.4-35.0)
Creatinine 1.2 H mg/dL
(0.6-1.0)
Glucose 129 H mg/dl
(70-99)
AST 37 H U/L
(14-36)
Troponin I 2.380 H* ng/ml 2.210 H* ng/ml
06/12/25 12:20
06/12/25 12:20
Vital Signs
Initial and Last Documented VS:
Initial Vital Signs
Temp Pulse Resp BP Pulse Ox
98.0 F 105 20 117/85 100
06/12/25 12:08 06/12/25 12:08 06/12/25 12:08 06/12/25 12:08 06/12/25 12:08
Last Documented Vital Signs
Temp Pulse Resp BP Pulse Ox
98.0 F 96 15 223/201 97
06/12/25 12:08 06/12/25 15:03 06/12/25 15:03 06/12/25 15:05 06/12/25 15:03
*Pulse Oximetry
SaO2: 95
Oxygen Mode of Delivery: Room air
Update Note
Update Note:
Patient presents to the Emergency Department with ___chest tightness and overall fatigue
Number and Complexity of Problems Addressed at the Encounter
� Chronic conditions affecting care:
� Acute Exacerbation and/or Progression of Chronic Illness:
� Differential Diagnosis includes: But not limited to ACS, heart failure, pericarditis, muscular strain, etc. etc.
Amount and/or Complexity of Data to be Reviewed and Analyzed
� I performed an independent evaluation of and my interpretation is:
EKG: Read by me, sinus tachycardia with PVCs, no acute ischemia noted
CT:
Xrays:
Laboratory Studies:trop evleation noted.
Other:
� Review of other/old records reveals: Patient was admitted for heart failure over the past year discharge discharge summary was reviewed by me, she was markedly improved after initiating Lasix. Patient states she is compliant
with her Lasix
� Clinical information was obtained by an independent historian:
� Prescriptions/Medications Considered but not given:
� Further testing considered but not performed:
Risk of Complications and/or Morbidity or Mortality of Patient Management
� Social determinants of health affecting care:
� Discussion with other providers (PCP, Hospitalists, Consultants, etc):
� Escalation of care including admission/observation vs risk of discharge considered: Upon my presentation into the room initially I was alerted of patient's elevated troponin. Aspirin and nitroglycerin initiated as well as IV
access attempted. Patient had transient hypotension, we are pausing on further nitroglycerin until IV access is obtained. Repeat ECG without STEMI.
Nitro times 2, pain a 'twinge' now. No diaphoresis/sob. Cards updated. Heparin ordered. Will continue nitro sl.
Multiple multiple reassessments done here, patient on heparin drip, nitroglycerin drip at 10 and is finally pain-free. Cardiology was updated. Hospitalist made aware of admission.
ED Attending Note
-
Portions of this chart may have been created with voice recognition software.� Occasional wrong word or��sound alike� substitutions may have occurred due to the inherent limitations of voice recognition software.
Discharge Plan
Departure
Patient Disposition: Admit
Date of Disposition: 06/12/25
Time of Disposition: 15:40
Presentation/result/management discussed w/ accepting MD/DO: Hospitalist
Patient with high blood pressure during this ER visit?: Yes
Discharge Problem:
Angina pectoris, unstable
Prescriptions:
No Action
metoprolol succinate [Toprol XL] 50 mg Tablet Extended Release 24 Hr
50 mg PO DAILY
therapeutic multivitamin Tablet
1 tab PO DAILY
mirtazapine 15 mg Tablet
15 mg PO HS
valsartan 160 mg Tablet
160 mg PO DAILY
Collagen Skin Renewal 30-833.3 mg Tablet
1 tab PO DAILY
furosemide 20 mg Tablet
40 mg PO DAILY Qty: 30 0RF
spironolactone 25 mg Tablet
12.5 mg PO DAILY
desipramine 50 mg Tablet
50 mg PO DAILY
Referrals:
Indigo Esteban DO [Family Provider, Family Practice]
Interventions
Interventions:
*Risk Screen - Suicide Last Done: 06/12/25 12:08
*General Assessment Last Done: 06/12/25 12:08
*Neglect/Abuse Screening Last Done: 06/12/25 13:49
*ED COVID-19 Vaccine History Last Done: 06/12/25 13:49
*ED Influenza Vaccine History Last Done: 06/12/25 12:08
ED- Cardiac Assessment Last Done: 06/12/25 13:49
ED- Pulmonary Assessment Last Done: 06/12/25 13:49
Discharge Date and Time
Print Language: ROMANSH
[2025-06-12 15:00] LABS: APTT 20.6 Sec (23.4-35.0)
[2025-06-12 15:02] LABS: Troponin I 2.210 ng/ml
[2025-06-12] MEDS: HEPARIN 25000 UNITS/250 ML IV (15:15)
[2025-06-12] MEDS: HEPARIN 4000 UNITS IV (15:15)
[2025-06-12] MEDS: NITROGLYCERIN PREMIX 250 IV (15:24)
--- NOTE | 2025-06-12 15:59 | CON.CAR ---
Consultation
Consultation Request
Date/Time Consultation Requested: 06/12/2025 1500
Date/Time Consultation Performed: 06/12/2025 1600
Requesting Provider: Dr. Martina Rodriguez
Performing Provider: LAURA Fenton for Dr. Zavaleta
Reason for Consultation: Chest tightness
Medical History
-
Chief Complaint: Chest tightness
History of Present Illness:
Elo Mcdaniel is a 70-year-old female (known to Dr. Sanders, her primary heating equipment repairer), with chronic HFpEF, hypertension, PSVT, depression, and alcohol abuse who presented to the emergency department with a chief complaint of chest tightness.
Chest tightness occurred this morning. She thought maybe she had extra fluid so took an additional furosemide. It did not help and actually got worse. She had midsternal anterior chest tightness that radiated down into her arms. Her arms felt
'like lead'. She has felt unwell for the past several hours. She currently does not have any chest tightness on nitroglycerin drip. However, she does feel that her arms are still heavy.
Past Medical History
Past Medical History: Arrhythmias (PSVT), CHF, HTN and Psychiatric (Alcoholism, depression)
Past Surgical History: , Gynecological, Orthopedic and Other (Gastric bypass)
Social History
Tobacco: Former Smoker
Alcohol: Chronic Alcoholic (With intermittent sobriety. 1 quart of wine 2 days/week)
Drug: None
Personal:
Living: With Family (Son.)
Employment: Employed (Part-time at [employer])
Family History
Family History: Reviewed & Not Pertinent
Allergies / Home Medications
Allergy/AdvReac Type Severity Reaction Status Date / Time
sulfamethoxazole (From Allergy Itching Verified 06/12/25 12:08
Bactrim)
trimethoprim (From Bactrim) Allergy Itching Verified 06/12/25 12:08
�Medication �Instructions �Recorded �Confirmed �Type
ascorbic acid 30 mg-collagen, 1 tab PO DAILY Supplement 06/29/24 06/12/25 History
hydrolyzed 833.3 mg tablet
(Collagen Skin Renewal)
metoprolol succinate 50 mg 50 mg PO DAILY Heart 06/29/24 06/12/25 History
tablet,extended release 24 hr Disease/Condition
(Toprol XL)
mirtazapine 15 mg tablet 15 mg PO HS Sleep 06/29/24 06/12/25 History
therapeutic multivitamin 1 tab PO DAILY Supplement 06/29/24 06/12/25 History
valsartan 160 mg tablet 160 mg PO DAILY Blood Pressure 06/29/24 06/12/25 History
furosemide 20 mg tablet 40 mg (2 x 20 mg) PO DAILY Fluid 07/16/24 06/12/25 Rx
Retention/Swelling #30 tabs
desipramine 50 mg tablet 50 mg PO DAILY Depression 06/12/25 06/12/25 History
spironolactone 25 mg tablet 12.5 mg PO DAILY Fluid 06/12/25 06/12/25 History
Retention/Swelling
Review of Systems
-
History Source: Patient
All other systems: Negative unless noted
Constitutional: Fatigue
EENT: No Symptoms
Respiratory: No Symptoms
Cardiac: Chest Pain
Abdomen/GI: No Symptoms
: No Symptoms
Musculoskeletal: No Symptoms
Skin: No Symptoms
Endocrine: No Symptoms
Hematologic/Lymphatic: No Symptoms
Physical Exam
Vital Signs
Temp Pulse Resp BP Pulse Ox
98.0 F 98 13 123/67 99
06/12/25 12:08 06/12/25 15:50 06/12/25 15:50 06/12/25 15:50 06/12/25 15:45
Lab Results
06/12/25 12:20
06/12/25 12:20
Troponin I 2.210 ng/ml H* 06/12/25 14:16
Mow-G-Tbhcisfysqn Pept 477 pg/ml 06/12/25 12:20
Physical Exam
General: Well Developed and Well Nourished
HEENT: Normocephalic, Anicteric and Moist Mucous Membranes
Respiratory: Clear and Non Labored Respirations
Cardiac: S1/S2, Regular Rhythm and Murmur (II/)
Breast: Deferred by me
GI: Soft, Non Tender, Non Distended and Normal Bowel Sounds
Rectal: Deferred by Provider
Genito-urinary: No Costovertebral Tender
Musculoskeletal: No Clubbing and No Edema
Skin: Warm
Neuro: AO x 3
Psych: Calm
Impression / Plan
-
I/P: 70F with chronic HFpEF, hypertension, PSVT, depression, and alcohol abuse who presented to the emergency department with a chief complaint of chest tightness.
Primary heating equipment repairer: Dr. Sanders
NSTEMI
- Peak troponin at presentation, 2.380
- Chest pain-free on nitroglycerin drip, but endorses continued arm heaviness
- EKG sinus rhythm, LAFB, and anterolateral ST abnormality
- Echocardiogram today
HFpEF, acute on chronic
- Does not appear grossly volume overloaded and denies PND, CXR pending
- SGLT2 has been cost prohibitive, continue MRA
- Trend daily weight, I/O, and BMP
Alcohol abuse
- She has had intermittent sobriety but 'fell off the wagon' with the loss of her son over the summer
- Currently having 1 quart of wine 2 days per week
PSVT, continue beta-kalyn
Essential hypertension, on GDMT as above
Coronary artery calcifications, seen on CT 03/2025, initiate statin
Hypercholesterolemia with hypertriglyceridemia
Former smoker, continue cessation recommended
Grief, son committed suicide on Father's Day, 2024
DATA:
Transthoracic echocardiogram, 02/24/2025:
SUMMARY
1. Normal left ventricular size with normal systolic function; ejection fraction is 65-70% by visual assessment. Normal regional wall motion and wall thickness. Normal diastolic function. There is a mid-cavity gradient of 12mmHg which increases to
34 mmHg with Valsalva.
2. Mild aortic valve stenosis.
3. No significant change from the prior study on 06/30/24.
Lexiscan nuclear stress test, 03/03/2025:
CONCLUSION:
Negative ECG for ischemia given the pharmacological study.
Normal Lexiscan nuclear stress test.
Systolic function is normal. The ejection fraction is >75%.
Stress Risk is low risk study, but the patient may be at moderate risk (risk of 1 - 3% SC or /year) due to pharmacologic agent used.
--- NOTE | 2025-06-12 16:52 | HPS.HSE ---
Family Physician
-
Family Physician: Indigo Esteban
Chief Complaint
-
chest pressure
History of Present Illness
70-year-old female past medical history of CHF, hypertension, alcohol use disorder, anxiety/depression, GERD, gastric bypass, former smoker, osteoarthritis presenting with chest pressure starting today associate with weakness of both arms. She had
sweating throughout the night. She has shortness of breath today. She had nausea. Denies vomiting. Denies having pain like this before.
She thought she was in congestive heart failure so she took an extra dose of Lasix today.
Denies any weight gain. She did have some swelling of her hands today. Denies swelling in her legs.
She denies chest pressure currently.
She used to drink 1 bottle of vodka every day but for the past month she has only been drinking a quart. She is a former smoker.
Multiple family numbers with heart attacks on her father side.
Medical History
Past Medical History
Past Medical History: Reports Other (CHF, hypertension, alcohol use disorder, anxiety/depression, GERD, gastric bypass, former smoker, osteoarthritis)
Past Surgical History: Reports None
Social History
Tobacco: Former Smoker
Alcohol: Daily
Drug: None
Family History
Family History: Not pertinent
Allergies / Home Medications
Allergies reflects when Allergies were last updated in [facility].
Home Medications with original date entered in [facility]
Allergy/Medication List:
Allergies
Allergy/AdvReac Type Severity Reaction Status Date / Time
sulfamethoxazole (From Allergy Itching Verified 06/12/25 12:08
Bactrim)
trimethoprim (From Bactrim) Allergy Itching Verified 06/12/25 12:08
Home Medications
ascorbic acid 30 mg-collagen, hydrolyzed 833.3 mg tablet (Collagen Skin Renewal) 1 tab PO DAILY Supplement 06/29/24
metoprolol succinate 50 mg tablet,extended release 24 hr (Toprol XL) 50 mg PO DAILY Heart Disease/Condition 06/29/24
mirtazapine 15 mg tablet 15 mg PO HS Sleep 06/29/24
therapeutic multivitamin 1 tab PO DAILY Supplement 06/29/24
valsartan 160 mg tablet 160 mg PO DAILY Blood Pressure 06/29/24
furosemide 20 mg tablet 40 mg (2 x 20 mg) PO DAILY Fluid Retention/Swelling #30 tabs 07/16/24
desipramine 50 mg tablet 50 mg PO DAILY Depression 06/12/25
spironolactone 25 mg tablet 12.5 mg PO DAILY Fluid Retention/Swelling 06/12/25
Review of Systems
-
History Source: Patient
A 12 point ROS was completed and negative except as noted: Yes
Constitutional: Reports No Symptoms
EENT: Reports No Symptoms
Respiratory: Reports No Symptoms
Cardiac: Reports See HPI
Abdomen/GI: Reports No Symptoms
: Reports No Symptoms
Musculoskeletal: Reports No Symptoms
Skin: Reports No Symptoms
Neurological: Reports No Symptoms
Endocrine: Reports No Symptoms
Hematologic/Lymphatic: Reports No Symptoms
Psych: Reports No Symptoms
Physical Exam
Vital Signs
Vital Signs
Temp Pulse Resp BP Pulse Ox
98.0 F 98 14 114/69 100
06/12/25 12:08 06/12/25 16:45 06/12/25 16:15 06/12/25 16:45 06/12/25 16:40
Physical Exam
General: Well Developed, Well Nourished and No Apparent Distress
HEENT: NormoCephalic, Moist mucous membranes and Atraumatic
Respiratory: Clear
Cardiac: S1/S2 and Regular Rhythm; No Murmur or Rub
GI: Soft, Non Tender, Non Distended and Normal Bowel Sounds; No Organomegaly
Rectal: Deferred by Provider
Musculoskeletal: No Clubbing, No Cyanosis and No Edema
Skin: No Rash
Neuro: Nonfocal/grossly intact
Laboratory Results
-
06/12/25 12:20
06/12/25 12:20
Laboratory Results
APTT 20.6 Sec (23.4-35.0) L 06/12/25 14:16
Total Bilirubin 0.4 mg/dl (0.2-1.3) 06/12/25 12:20
AST 37 U/L (14-36) H 06/12/25 12:20
ALT 28 U/L (0-35) 06/12/25 12:20
Alkaline Phosphatase 68 U/L (38-126) 06/12/25 12:20
Troponin I 2.210 ng/ml H* 06/12/25 14:16
Data Reviewed
-
Lab Data: Labs Reviewed by me
Old Records: Reviewed
Impression/Plan
-
IMPRESSION:
PLAN:
# NSTEMI
-Troponin 2.3
-EKG shows normal sinus rhythm, low voltage QRS
- Aspirin
- Heparin drip
- Nitroglycerin drip
- Check A1c and lipid panel
- Trend troponins
- Check echo
- Cardiology consulted
- N.p.o. for potential catheterization today
# Acute kidney injury
- Creatinine 1.2 from 0.9
- Hold spironolactone, valsartan
History of HFpEF
-BNP 500
-CXR pending
- Continue Lasix
-Hold spironolactone and valsartan
- Continue metoprolol
Essential hypertension
Alcohol use disorder
- Alcohol withdrawal protocol
- No signs of withdrawal
Anxiety/depression
- Continue desipramine, mirtazapine
GERD
History of gastric bypass
Former smoker
Osteoarthritis
DNR/DNI
DVT prophylaxis�heparin drip
Cardiac diet
--- NOTE | 2025-06-12 18:04 | W.PN.UPDATE ---
Update Note
Progress Note Update
I reviewed and agree with the note by LAURA Fenton and it accurately reflects our care.
I saw and evaluated the patient, and I provided the substantive portion of the medical decision making. My assessment and plan is below:
70-year-old female with chronic HFpEF, hypertension, and alcohol abuse who presents with chest tightness. Chest tightness started this morning when she woke up. She took an extra dose of furosemide because she thought it was related to excess
fluid. This did not help. When she was in the shower she developed bilateral arm heaviness which caused her to present to the ER. Her chest pressure improved with nitroglycerin infusion but bilateral arm heaviness persists. For the past several
weeks she has felt more lethargic than usual and has not been her normal self. Of note, her son tragically committed suicide in December.
Physical exam: RRR, systolic murmur, clear lungs, no lower extremity edema
Labs notable for WBC 13.5, troponin 2.38 -> 2.21, proBNP 477, creatinine 1.2 (baseline 0.9)
ECG: NSR, LAFB
TTE: LVEF 39%, mid to apical akinesis with hyperdynamic basal segments, LVOT gradient 60 mmHg at rest, 98 mmHg with Valsalva, JOSE, mild , mild/mod AR
Yahaira 03/03/2025: Normal perfusion
Chest pain and troponin elevation: Suspect Takotsubo's cardiomyopathy given flat troponins, recently negative stress test, and echo appearance. Her chest pain did improve with nitro drip which does not totally fit. We will treat for NSTEMI because
Takotsubo's cardiomyopathy is a diagnosis of exclusion. Continue IV heparin, aspirin, beta-kalyn and statin. Hold diuresis given LVOT obstruction on echocardiogram.
--- NOTE | 2025-06-12 19:28 | PTCARENOTE ---
~[id number]: Patient arrived from ED via stretcher. Pt AOx4, ST 100s on tele, SBP 120s, RA satting 100%. MSAS completed per protocol. +1 pulses, no edema. Patient does not c/o pain/ chest pain at this time. Standby assist. Heparin gtt @ 900 and Nitro
gtt @10. Admission charting completed and patient oriented to room and call stone system. All needs met at this time, call stone within reach. Handoff report given to nightshift RN.
[2025-06-12] MEDS: LIPITOR 20 MG PO (20:59)
[2025-06-12] MEDS: THIAMINE INJECTION 200 MG IV (20:59)
[2025-06-12 21:39] LABS: Urine Character Clear (Clear)
[2025-06-12 21:47] LABS: Urine Red Blood Cell 0-2 /HPF (0-2); Urine Squamous Cell 21-25 /LPF (Few)
[2025-06-12 22:16] LABS: INR 1.09; PT 14.2 Sec (11.4-14.6)
[2025-06-12 22:18] LABS: APTT 75.8 Sec (23.4-35.0)
[2025-06-12] MEDS: REMERON 15 MG PO (22:23)
[2025-06-12 22:29] LABS: GGTP 23 U/L (12-43); HDL Cholesterol 77 mg/dl; LDL Cholesterol, Calculated 59 mg/dl; Magnesium 2.2 mg/dl (1.6-2.3); Very Low Density Lipoprotein 21 mg/dl (0-30)
[2025-06-12 23:09] LABS: Troponin I 1.660 ng/ml
[2025-06-13] VITALS (10 sets, daily range): BP systolic 82–108; BP diastolic 59–75; BMI 33.5
--- NOTE | 2025-06-13 00:42 | PTCARENOTE ---
Pt. rec'd at beginning of shift AAOx3, VSS, NSR to ST (low 100's) on the monitor. Pt. denied any chest pain or shortness of breath. Nitro initially running at 10 mcg/min but was then titrated down to 5 and then completely off due to no chest pain
and SBP dropping into the 80's (pt. asymptomatic). Last BP 101/68. Pt. appropriate and oriented, MSAS score ranging 1-2 (only for tachycardia at times). Heparin gtt infusing per order. Pt. resting quietly.
[2025-06-13 04:21] LABS: Hematocrit 40.8 % (37.0-47.0); Hemoglobin 13.5 g/dL (12.0-16.0); Mean Corp Hgb Conc. 33.1 g/dL (33.0-37.0); Mean Corpuscular Volume 95.8 fL (81.0-99.0); Nucleated Red Blood Cells % 0 %; Platelet Count 337 10^3/uL (130-400); Red Cell Dist. Width 13.1 % (11.5-14.5)
[2025-06-13 04:36] LABS: APTT 66.1 Sec (23.4-35.0)
[2025-06-13 04:56] LABS: ALT (SGPT) 28 U/L (0-35); AST (SGOT) 46 U/L (14-36); Albumin 4.5 g/dl (3.5-5.0); Alkaline Phosphatase 70 U/L (38-126); Blood Urea Nitrogen 20 mg/dl (7-17); Calcium 9.5 mg/dl (8.4-10.2); Carbon Dioxide 28 mmol/L (22-30); Chloride 102 mmol/L (98-107); Estimated Creatinine Clearance 39 ml/min; Glucose 109 mg/dl (70-99); Potassium 4.3 mmol/L (3.5-5.1); Sodium 137 mmol/L (135-145); Total Protein 7.4 g/dl (6.3-8.2); eGFR 48.70
[2025-06-13] MEDS: THERAGRAN 1 TABLET PO (08:45)
[2025-06-13] MEDS: FOLVITE 1 MG PO (08:45)
[2025-06-13] MEDS: LOW STRENGTH ASPIRIN 81 MG PO (08:45)
[2025-06-13] MEDS: NORPRAMIN 50 MG PO (08:45)
[2025-06-13] MEDS: TOPROL XL 50 MG PO (08:45)
[2025-06-13] MEDS: THIAMINE INJECTION 200 MG IV ×2 (08:46→20:28)
--- NOTE | 2025-06-13 09:47 | W.PN.CD ---
Today's Communication / Plan
-
Cont meds
plan for cath Sunday
Impression / Plan
-
I/P: 70F with chronic HFpEF, hypertension, PSVT, depression, and alcohol abuse who presented to the emergency department with a chief complaint of chest tightness.
Primary telephone diaphragm assembler: Dr. Sanders
NSTEMI
- Peak troponin at presentation, 2.380
- symptoms much improved
- EKG sinus rhythm, LAFB, and anterolateral ST abnormality
- Echocardiogram below
HFpEF, acute on chronic
- Does not appear grossly volume overloaded and denies PND, CXR pending
- SGLT2 has been cost prohibitive, continue MRA
- Trend daily weight, I/O, and BMP
Alcohol abuse
- She has had intermittent sobriety but 'fell off the wagon' with the loss of her son over the summer
- Currently having 1 quart of wine 2 days per week
PSVT, continue beta-kalyn
Essential hypertension, on GDMT as above
Coronary artery calcifications, seen on CT 03/2025, initiate statin
Hypercholesterolemia with hypertriglyceridemia
Former smoker, continue cessation recommended
Grief, son committed suicide on Father's Day, 2024
DATA:
Transthoracic echocardiogram, 02/24/2025:
SUMMARY
1. Normal left ventricular size with normal systolic function; ejection fraction is 65-70% by visual assessment. Normal regional wall motion and wall thickness. Normal diastolic function. There is a mid-cavity gradient of 12mmHg which increases to
34 mmHg with Valsalva.
2. Mild aortic valve stenosis.
3. No significant change from the prior study on 06/30/24.
Lexiscan nuclear stress test, 03/03/2025:
CONCLUSION:
Negative ECG for ischemia given the pharmacological study.
Normal Lexiscan nuclear stress test.
Systolic function is normal. The ejection fraction is >75%.
Stress Risk is low risk study, but the patient may be at moderate risk (risk of 1 - 3% DC or /year) due to pharmacologic agent used.
Echo Jun 12 2025: SUMMARY
1. Moderately reduced left ventricular systolic function with mid to apical akinesis and hyperdynamic basal segments. LVEF 39%.
2. LVOT gradient 60 mmHg at rest, 98 mmHg with Valsalva. Systolic anterior motion of the mitral valve.
3. Mild aortic stenosis.
4. Mild to moderate mitral regurgitation.
5. Overall findings are consistent with Takotsubo's cardiomyopathy though multivessel CAD cannot be excluded.
6. Compared to prior echocardiogram in February 2025, LVEF has decreased from 65-70% and there are new wall motion abnormalities as described above.
Physical Exam
Vital Signs/Labs
Vital Signs
Temp Pulse Resp BP Pulse Ox
98.2 F 110 18 100/63 96
06/13/25 07:44 06/13/25 09:00 06/13/25 07:44 06/13/25 08:45 06/13/25 07:44
06/12/25 06/13/25 06/14/25
06:59 06:59 06:59
Actual Weight 165 lb 12.602 oz
06/13/25 04:08
06/13/25 04:08
PT 14.2 Sec (11.4-14.6) 06/12/25 21:55
INR 1.09 06/12/25 21:55
APTT 66.1 Sec (23.4-35.0) H 06/13/25 04:08
Magnesium 2.2 mg/dl (1.6-2.3) 06/12/25 21:55
Triglycerides 107 mg/dl (10-149) 06/12/25 21:55
Triglycerides Cancelled 06/12/25 21:55
LDL Cholesterol, Calc 59 mg/dl 06/12/25 21:55
LDL Cholesterol, Calc Cancelled 06/12/25 21:55
VLDL Cholesterol, Calc 21 mg/dl (0-30) 06/12/25 21:55
VLDL Cholesterol, Calc Cancelled 06/12/25 21:55
HDL Cholesterol 77 mg/dl 06/12/25 21:55
HDL Cholesterol Cancelled 06/12/25 21:55
06/12/25
12:20
Fsl-W-Ririgbclbsf Pept 477
LAB Results
06/12/25 06/12/25 06/12/25
12:20 14:16 21:56
Troponin I 2.380 H* 2.210 H* Cancelled
06/12/25 06/13/25 06/13/25
22:36 00:34 06:34
Troponin I 1.660 H* Cancelled Cancelled
Physical Exam
Constitutional: No acute distress and Comfortable
EENT: Anicteric
Cardiovascular: Rhythm & rate is regular and Pedal edema is absent
Respiratory: Respiratory effort normal and Lungs clear to auscul.
GI: Soft
Neuro/Psych: AO x 3
Data Reviewed
-
Date of Service: June 13, 2025
EKG: Tracing Personally Visualized and interpreted (sr)
Echo: Report Reviewed by me
Labs: Labs Reviewed by me
[2025-06-13 11:38] LABS: APTT 93.6 Sec (23.4-35.0)
--- NOTE | 2025-06-13 12:24 | W.PN.HOSP.TC ---
Today's Communication/Plan
-
Continue with IV heparin
CW ASA
DC nitroglycerin drip
Hold valsartan ; Cards recs for continuing MRA but would hold till Cr stabilizes
Follow creatinine
Continue beta-blockers
Diuretics per cardiology
Assessment / Plan
Assessment / Plan
# NSTEMI
-Peak Troponin 2.3
-EKG shows normal sinus rhythm, low voltage QRS
- Resolved chest pressure.
-Plan for cardiac cath on Sunday
- Aspirin
- Heparin drip
- DC nitroglycerin drip
- Check A1c
- LDL 59
- Check echo
- Cardiology recommendations noted
# Renal dysfunction
- Creatinine 1.2 from 0.9 over a month suggestive more of CKD stage 3
- Hold spironolactone, valsartan for now and follow
History of HFpEF
-BNP 500
-CXR without evidence of CHF or pulmonary edema
- Continue Lasix
-Hold spironolactone and valsartan
- Continue metoprolol
Essential hypertension
Alcohol use disorder
- Alcohol withdrawal protocol
- No signs of withdrawal
Anxiety/depression
- Continue desipramine, mirtazapine
GERD
History of gastric bypass
Former smoker
Osteoarthritis
DNR/DNI
DVT prophylaxis�heparin drip
Cardiac diet
DW RN
Anticipated Discharge: > 48 hours
Subjective/Interval History
-
Date of Service: June 13, 2025
Further chest pressure. Denies any chest pain. No shortness of breath.
No dizziness.
No nausea vomiting. Tolerating diet. No tremors.
Objective Data
-
Labs:
Laboratory Results
06/13/25 06/13/25 06/13/25
04:08 11:12 18:00
WBC 9.9
Hgb 13.5
Hct 40.8
Plt Count 337
APTT 66.1 H 93.6 H Pending
Sodium 137
Potassium 4.3
Chloride 102
Carbon Dioxide 28
BUN 20 H
Creatinine 1.2 H
Glucose 109 H
Calcium 9.5
Total Bilirubin 0.7
AST 46 H
ALT 28
Alkaline Phosphatase 70
Vital Signs:
Vital Signs
Temp Pulse Resp BP Pulse Ox
98.7 F 110 20 100/63 96
06/13/25 11:48 06/13/25 09:00 06/13/25 11:48 06/13/25 08:45 06/13/25 11:48
I&O
06/12/25 06/13/25 06/14/25
06:59 06:59 06:59
Intake Total 480 / 480
Output Total 450 / 450
Balance
Physical Exam
-
General: Comfortable
Respiratory: Crackles (few bibasal) and Non Labored Respirations; Negative Accessory Resp Muscle Use
Cardiac: Regular Rhythm and S1/S2; Negative Tachycardic
GI: Soft and Nontender
Neuro: AO x 3
Psych: Calm; Negative Confused
Data Reviewed
-
Labs: Labs Reviewed by me
[2025-06-13 13:49] LABS: Glycohemoglobin (HgbA1c) 5.4 % (4.0-5.9)
[2025-06-13] MEDS: HEPARIN 25000 UNITS/250 ML IV (15:05)
[2025-06-13] MEDS: LIPITOR 20 MG PO (17:15)
--- NOTE | 2025-06-13 18:51 | PTCARENOTE ---
~[id number]: Handoff report received from nightshift RN. Pt AOx4, appears sad and withdrawn, NSR/ST 90s-110s on tele, + heart murmur noted, SBP 100s, RA satting 96%. Pt denies pain at this time. Heparin gtt infusing @ 1000units/hr. Nitro gtt off at
this time. MSAS 1 for elevated HR. Pt standby assist in room. All needs met at this time, call stone within reach.
~[id number]: PTT drawn and sent to lab.
~5016-1851: Patient in room. Family at bedside. VSS, RA. Nocomplaints at this time. No changed from previous assessment. All needs met at this time, call stone within reach.
~[id number]: MSAS 2 for HR >100. Patient independent in room, does not c/o pain at this time. Heparin gtt infusing. PTT obtained and sent to lab, results pending at this time. TT sent to cards about possible diuretic need as seen in hospitalist note.
Per cardiology, no need for diuretics at this time. All needs met at this time, call stone within reach.
[2025-06-13 19:10] LABS: APTT 111.7 Sec (23.4-35.0)
[2025-06-13] MEDS: REMERON 15 MG PO (22:28)
[2025-06-14] VITALS (7 sets, daily range): BP systolic 88–116; BP diastolic 57–77; BMI 33.6
--- NOTE | 2025-06-14 00:49 | PTCARENOTE ---
Rec'd pt at change of shift. Pt AAO*3, VSS, and Sr-Stach on tele monitor. Pt denies any pain or discomfort and heparin infusing as ordered. Pt updated on plan of care and now resting with call stone in reach. See MAR and flowchart for full pt
care and assessment. MSAS complete (see documentation) and pt made aware of monitoring purpose.
[2025-06-14 03:09] LABS: Hematocrit 39.0 % (37.0-47.0); Hemoglobin 12.8 g/dL (12.0-16.0); Mean Corp Hgb Conc. 32.8 g/dL (33.0-37.0); Mean Corpuscular Volume 96.1 fL (81.0-99.0); Platelet Count 297 10^3/uL (130-400); Red Cell Dist. Width 13.0 % (11.5-14.5)
[2025-06-14 03:14] LABS: APTT 80.4 Sec (23.4-35.0)
[2025-06-14 03:26] LABS: Blood Urea Nitrogen 21 mg/dl (7-17); Calcium 9.3 mg/dl (8.4-10.2); Carbon Dioxide 28 mmol/L (22-30); Chloride 104 mmol/L (98-107); Estimated Creatinine Clearance 42 ml/min; Glucose 96 mg/dl (70-99); Potassium 4.1 mmol/L (3.5-5.1); Sodium 137 mmol/L (135-145); eGFR 54.06
[2025-06-14] MEDS: LOW STRENGTH ASPIRIN 81 MG PO (08:29)
[2025-06-14] MEDS: NORPRAMIN 50 MG PO (08:29)
[2025-06-14] MEDS: FOLVITE 1 MG PO (08:29)
[2025-06-14] MEDS: TOPROL XL 50 MG PO (08:29)
[2025-06-14] MEDS: THIAMINE INJECTION 200 MG IV ×2 (08:29→20:07)
[2025-06-14] MEDS: THERAGRAN 1 TABLET PO (08:29)
--- NOTE | 2025-06-14 13:17 | W.PN.CD ---
Today's Communication / Plan
-
Continue current meds
N.p.o. after midnight for cath
Impression / Plan
-
I/P: 70F with chronic HFpEF, hypertension, PSVT, depression, and alcohol abuse who presented to the emergency department with a chief complaint of chest tightness.
Primary ediscovery project manager: Dr. Sanders
NSTEMI
- Peak troponin at presentation, 2.380
- symptoms much improved
- EKG sinus rhythm, LAFB, and anterolateral ST abnormality
- Echocardiogram below
HFpEF, acute on chronic
- Does not appear grossly volume overloaded and denies PND, CXR pending
- SGLT2 has been cost prohibitive, continue MRA
- Trend daily weight, I/O, and BMP
-Given evidence of JOSE we will have to be wary of diuretics
Alcohol abuse
- She has had intermittent sobriety but 'fell off the wagon' with the loss of her son over the summer
- Currently having 1 quart of wine 2 days per week
PSVT, continue beta-kalyn
Essential hypertension, on GDMT as above
Coronary artery calcifications, seen on CT 03/2025, initiate statin
Hypercholesterolemia with hypertriglyceridemia
Former smoker, continue cessation recommended
Grief, son committed suicide on Father's Day, 2024
DATA:
Transthoracic echocardiogram, 02/24/2025:
SUMMARY
1. Normal left ventricular size with normal systolic function; ejection fraction is 65-70% by visual assessment. Normal regional wall motion and wall thickness. Normal diastolic function. There is a mid-cavity gradient of 12mmHg which increases to
34 mmHg with Valsalva.
2. Mild aortic valve stenosis.
3. No significant change from the prior study on 06/30/24.
Lexiscan nuclear stress test, 03/03/2025:
CONCLUSION:
Negative ECG for ischemia given the pharmacological study.
Normal Lexiscan nuclear stress test.
Systolic function is normal. The ejection fraction is >75%.
Stress Risk is low risk study, but the patient may be at moderate risk (risk of 1 - 3% NH or /year) due to pharmacologic agent used.
Echo Jun 12 2025: SUMMARY
1. Moderately reduced left ventricular systolic function with mid to apical akinesis and hyperdynamic basal segments. LVEF 39%.
2. LVOT gradient 60 mmHg at rest, 98 mmHg with Valsalva. Systolic anterior motion of the mitral valve.
3. Mild aortic stenosis.
4. Mild to moderate mitral regurgitation.
5. Overall findings are consistent with Takotsubo's cardiomyopathy though multivessel CAD cannot be excluded.
6. Compared to prior echocardiogram in February 2025, LVEF has decreased from 65-70% and there are new wall motion abnormalities as described above.
Physical Exam
Vital Signs/Labs
Vital Signs
Temp Pulse Resp BP Pulse Ox
97.9 F 86 16 104/77 97
06/14/25 11:15 06/14/25 11:15 06/14/25 11:15 06/14/25 08:29 06/14/25 11:15
06/13/25 06/14/25 06/15/25
06:59 06:59 06:59
Actual Weight 165 lb 12.602 oz 166 lb 0.129 oz
06/14/25 02:52
06/14/25 02:52
PT 14.2 Sec (11.4-14.6) 06/12/25 21:55
INR 1.09 06/12/25 21:55
APTT Cancelled 06/14/25 09:15
Magnesium 2.2 mg/dl (1.6-2.3) 06/12/25 21:55
Triglycerides 107 mg/dl (10-149) 06/12/25 21:55
Triglycerides Cancelled 06/12/25 21:55
LDL Cholesterol, Calc 59 mg/dl 06/12/25 21:55
LDL Cholesterol, Calc Cancelled 06/12/25 21:55
VLDL Cholesterol, Calc 21 mg/dl (0-30) 06/12/25 21:55
VLDL Cholesterol, Calc Cancelled 06/12/25 21:55
HDL Cholesterol 77 mg/dl 06/12/25 21:55
HDL Cholesterol Cancelled 06/12/25 21:55
06/12/25
12:20
Ouc-N-Zgggzyxbfeb Pept 477
LAB Results
06/12/25 06/12/25 06/12/25
12:20 14:16 21:56
Troponin I 2.380 H* 2.210 H* Cancelled
06/12/25 06/13/25 06/13/25
22:36 00:34 06:34
Troponin I 1.660 H* Cancelled Cancelled
Physical Exam
Constitutional: No acute distress and Comfortable
EENT: Anicteric
Cardiovascular: Rhythm & rate is regular and Pedal edema is absent
Respiratory: Respiratory effort normal and Lungs clear to auscul.
GI: Soft
Neuro/Psych: AO x 3
Data Reviewed
-
Date of Service: June 14, 2025
EKG: Tracing Personally Visualized and interpreted
Echo: Report Reviewed by me
Labs: Labs Reviewed by me
--- NOTE | 2025-06-14 14:20 | W.PN.HOSP.TC ---
Today's Communication/Plan
-
Continue with IV heparin and aspirin. Continue beta-kalyn
Cardiac cath tomorrow
Assessment / Plan
Assessment / Plan
# NSTEMI
-Peak Troponin 2.3
-EKG shows normal sinus rhythm, low voltage QRS
- Resolved chest pressure.
-Plan for cardiac cath on Sunday
- Aspirin
- Heparin drip
- Off of nitroglycerin drip
- Hemoglobin A1c 5.4
- LDL 59
- Echocardiogram shows EF of 39% with mid to apical akinesis and hyperdynamic basal segment, LVOT gradient of 60 mmHg at rest, 98 mmHg with Valsalva, mild to moderate MR, mild aortic stenosis
Echo finding consistent with Takotsubo cardiomyopathy though multivessel CAD cannot be excluded. Echo from February 2025 showed EF of 65 to 70%, wall motion abnormalities now are new
- Cardiology recommendations noted
# Renal dysfunction
- Creatinine 1.2 from 0.9 over a month suggestive more of CKD stage 3
- Hold spironolactone, valsartan for now and follow
Acute on chronic heart failure now with reduced EF
History of heart failure with preserved EF
-BNP 500
-CXR without evidence of CHF or pulmonary edema
- Diuretics per cardiology-currently on none
-Hold spironolactone and valsartan and resume after cath tomorrow
- Continue metoprolol
Essential hypertension
Alcohol use disorder
- Alcohol withdrawal protocol
- No signs of withdrawal
Anxiety/depression
- Continue desipramine, mirtazapine
GERD
History of gastric bypass
Former smoker
Osteoarthritis
DNR/DNI
DVT prophylaxis�heparin drip
Cardiac diet
DW RN
Anticipated Discharge: > 48 hours
Subjective/Interval History
-
Date of Service: June 14, 2025
Denies any chest pain or shortness of breath. No nausea vomiting. No lightheadedness.
Objective Data
-
Labs:
Laboratory Results
06/14/25 06/14/25 06/14/25
02:52 09:15 15:00
WBC 7.9
Hgb 12.8
Hct 39.0
Plt Count 297
APTT 80.4 H Cancelled Pending
Sodium 137
Potassium 4.1
Chloride 104
Carbon Dioxide 28
BUN 21 H
Creatinine 1.1 H
Glucose 96
Calcium 9.3
Vital Signs:
Vital Signs
Temp Pulse Resp BP Pulse Ox
97.9 F 86 16 104/77 97
06/14/25 11:15 06/14/25 11:15 06/14/25 11:15 06/14/25 08:29 06/14/25 11:15
I&O
06/13/25 06/14/25 06/15/25
06:59 06:59 06:59
Intake Total 480 / 480 480 / 480
Output Total 450 / 450 1050 / 1050
Balance -570 / -570
Physical Exam
-
General: No Apparent Distress
Respiratory: Clear to Auscultation and Non Labored Respirations; Negative Accessory Resp Muscle Use
Cardiac: Regular Rhythm and S1/S2
GI: Soft
Neuro: AO x 3
Data Reviewed
-
Labs: Labs Reviewed by me
[2025-06-14 15:50] LABS: APTT 88.3 Sec (23.4-35.0)
[2025-06-14] MEDS: HEPARIN 25000 UNITS/250 ML IV (18:00)
[2025-06-14] MEDS: LIPITOR 20 MG PO (18:00)
--- NOTE | 2025-06-14 18:59 | PTCARENOTE ---
~[id number]: Handoff report received from nightshift RN. Pt AOx4, NSR/ST 80s-100s, SBP 100s, RA satting 98%, lungs diminished in bases. Pt denies pain at this time. Message sent to Dr. Springer this AM about heparin gtt titrations and poor venous
access. Verbal order taken for Heparin gtt to be placed at 950units/hr and for placement of midline catheter. Verbal slip sent to pharmacy around 0830, however no order placed yet around 1000. Informed Dr. Perry while he was rounding and he
state he would place the order. All needs met at this time, call stone within reach.
~[id number]: Midline order and Heparin gtt order for rate of 950 units/hr placed by Dr. Bain. Heparin gtt titrated to 950 units/hr per order. PTT time adjusted accordingly. All needs met at this time, call stone within reach.
~[id number]: L Midline catheter placed by VAT team.
~[id number]: Patient independent in room. VSS. PTT drawn and sent to lab. Resulted therapeutic at this time, next PTT ordered per protocol.
~[id number]: VSS. No change from previous assessment. All needs met at this time, call stone within reach. Handoff report given to nightshift RN.
--- NOTE | 2025-06-14 20:55 | PTCARENOTE ---
Received pt at change of shift resting in bed. SR on tele, HR 80's-90's. pt denies any CP or SOB at this time. MSAS score of 1. Informed pt on NPO status after midnight, pt verbalizes understanding. Updated pt on plan of care. Call stone within
reach.
[2025-06-14] MEDS: REMERON 15 MG PO (22:01)
[2025-06-14 22:27] LABS: APTT 100.7 Sec (23.4-35.0)
[2025-06-15] VITALS (13 sets, daily range): BP systolic 95–132; BP diastolic 63–80; BMI 33.5
[2025-06-15 04:19] LABS: APTT 82.2 Sec (23.4-35.0)
[2025-06-15] MEDS: TOPROL XL 50 MG PO (08:32)
[2025-06-15] MEDS: FOLVITE 1 MG PO (08:32)
[2025-06-15] MEDS: NORPRAMIN 50 MG PO (08:32)
[2025-06-15] MEDS: LOW STRENGTH ASPIRIN 81 MG PO (08:32)
[2025-06-15] MEDS: THERAGRAN 1 TABLET PO (08:32)
[2025-06-15] MEDS: THIAMINE INJECTION 200 MG IV (08:34)
--- NOTE | 2025-06-15 10:08 | CM ---
Reviewed chart. Met with Mrs. Mcdaniel to review discharge plans. She states prior to admission she resides with her son, [id number] and grandson in a one story home without any steps to enter. She states prior to admission she was independent
with ambulating and adls. She states she does not have any DME in the home. She states she was taking naltrexone for Alcohol Use Disorder but was having a hard time having a doctor to continue prescribing the medication. She states she has a
prescription plan and uses [facility]. We reviewed [facility] and their resources. Gave her the information about [facility]. Telephone call to [facility] to see if they know of any providers that can prescribe Naltrexone. Awaiting call back
from [facility] with any information. She states the drug was very helpful in the past. Medical work-up in progress. The discharge plan is to return home with her family when medically stable.
[2025-06-15 10:11] LABS: Blood Urea Nitrogen 21 mg/dl (7-17); Calcium 8.9 mg/dl (8.4-10.2); Carbon Dioxide 27 mmol/L (22-30); Chloride 107 mmol/L (98-107); Estimated Creatinine Clearance 46 ml/min; Glucose 91 mg/dl (70-99); Potassium 4.3 mmol/L (3.5-5.1); Sodium 136 mmol/L (135-145); eGFR > 60.00
--- NOTE | 2025-06-15 12:20 | W.PN.HOSP.TC ---
Today's Communication/Plan
-
Continue with heparin drip
Plan for cardiac catheter.
Monitor creatinine closely
Assessment / Plan
Assessment / Plan
General: Well Developed, Well Nourished and No Apparent Distress
HEENT: NormoCephalic, Moist mucous membranes and Atraumatic
Respiratory: Clear
Cardiac: S1/S2 and Regular Rhythm; No Murmur or Rub
GI: Soft, Non Tender, Non Distended and Normal Bowel Sounds; No Organomegaly
Rectal: Deferred by Provider
Musculoskeletal: No Clubbing, No Cyanosis and No Edema
Skin: No Rash
Neuro: Nonfocal/grossly intact
# NSTEMI
- Peak Troponin 2.3
- EKG shows normal sinus rhythm, low voltage QRS
- Resolved chest pressure.
- Plan for cardiac cath today
- Aspirin
- Heparin drip
- Off of nitroglycerin drip
- Hemoglobin A1c 5.4
- LDL 59
- Echocardiogram shows EF of 39% with mid to apical akinesis and hyperdynamic basal segment, LVOT gradient of 60 mmHg at rest, 98 mmHg with Valsalva, mild to moderate MR, mild aortic stenosis
Echo finding consistent with Takotsubo cardiomyopathy though multivessel CAD cannot be excluded. Echo from February 2025 showed EF of 65 to 70%, wall motion abnormalities now are new
- Cardiology recommendations noted
# Elevated creatinine
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
- Hold spironolactone, valsartan for now and follow. Creatinine at 1 today.
Acute on chronic heart failure now with reduced EF
-BNP 500. Echo with EF of 39%. Mild to moderate mitral regurgitation. Overall finding consistent with Takotsubo cardiomyopathy though multivessel CAD cannot be excluded.
-CXR without evidence of CHF or pulmonary edema
- Diuretics per cardiology-currently on none
-Hold spironolactone and valsartan and and can resume after cath depending on blood pressure and creatinine
- Continue metoprolol
Essential hypertension
Alcohol use disorder
- Alcohol withdrawal protocol
- No signs of withdrawal
Anxiety/depression
- Continue desipramine, mirtazapine
GERD
History of gastric bypass
Former smoker
Osteoarthritis
DNR/DNI
DVT prophylaxis�heparin drip
Cardiac diet
Anticipated Discharge: 24 - 48 hours
Subjective/Interval History
-
Date of Service: June 15, 2025
Denies any chest pain at rest or exertion
Objective Data
-
Labs:
Laboratory Results
06/15/25 06/15/25 06/15/25
03:05 03:44 09:36
APTT Cancelled 82.2 H
Sodium 136
Potassium 4.3
Chloride 107
Carbon Dioxide 27
BUN 21 H
Creatinine 1.0
Glucose 91
Calcium 8.9
Vital Signs:
Vital Signs
Temp Pulse Resp BP Pulse Ox
97.7 F 82 15 118/80 99
06/15/25 10:53 06/15/25 10:53 06/15/25 10:53 06/15/25 08:32 06/15/25 10:53
I&O
06/14/25 06/15/25 06/16/25
06:59 06:59 06:59
Intake Total 480 / 480 240 / 240
Output Total 1050 / 1050
Balance -570 / -570 240 / 240
--- NOTE | 2025-06-15 13:36 | W.PN.CD ---
Today's Communication / Plan
-
Cardiac catheterization to clarify coronary anatomy.
GDMT adjustment based on cath findings.
Impression / Plan
-
Impression/Plan: 70F with chronic HFpEF, hypertension, PSVT, depression, and alcohol abuse who presented to the emergency department with a chief complaint of chest tightness, found to have an elevated troponin.
Primary machine stapler: Dr. Sanders
#NSTEMI
-Acute, threat to life.
-Troponin peaked at 2.380 (presentation).
-Symptoms much improved.
-EKG sinus rhythm, LAFB, and anterolateral ST abnormality.
-DDx also includes Takotsubo cardiomyopathy given severe emotional distress (son lost to suicide earlier this year).
-Cardiac catheterization today to clarify coronary anatomy (with V-gram).
-Continue aspirin, atorvastatin, metoprolol and nitro gtt.
-Further medication adjustments will depend on these results.
#HFmEF
-Acute on chronic.
-Not grossly volume overloaded; denies PND, CXR does not show pulmonary edema.
-Echo shows new systolic cardiomyopathy with regional wall motion abnormality.
-GDMT as hemodynamics will tolerate:
-Diuretics: Home furosemide 40 mg daily on hold.
-Beta kalyn: Metoprolol succinate 50 mg daily.
-ACEI/ARB/ARNi: Home valsartan 160 mg daily on hold.
-MRA: Home spironolactone 12.5 mg daily on hold.
-SGLT2i: Cost prohibitive.
-ICD: Not currently indicated.
#Alcohol abuse
-Chronic, recurrent.
-She has had intermittent sobriety but 'fell off the wagon' with the loss of her son over the summer.
-Currently having 1 quart of wine 2 days per week.
#PSVT
-Chronic, stable.
-Continue beta-kalyn.
#Essential hypertension
-Chronic, stable.
-Monitor with adjustments to GDMT.
#Coronary artery calcifications/Hyperlipidemia
-Seen on CT 03/2025.
-Total cholesterol = 157, LDL = 59, HDL = 77, Triglycerides = 107.
-Started on atorvastatin 20 mg daily this admission.
-Goal LDL < 55.
#Former smoker, continue cessation recommended.
#Grief, son committed suicide on Father's Day, 2024.
Subjective/Interval History:
Currently chest pain free.
She reports poor sleep (predating this hospitalization).
Weight is down 1.7 kg from admission (75.1 <-- 76.8).
DATA:
Transthoracic Echocardiogram, 02/24/2025:
SUMMARY
1. Normal left ventricular size with normal systolic function; ejection fraction is 65-70% by visual assessment. Normal regional wall motion and wall thickness. Normal diastolic function. There is a mid-cavity gradient of 12mmHg which increases to
34 mmHg with Valsalva.
2. Mild aortic valve stenosis.
3. No significant change from the prior study on 06/30/24.
Lexiscan nuclear stress test, 03/03/2025:
CONCLUSION:
Negative ECG for ischemia given the pharmacological study.
Normal Lexiscan nuclear stress test.
Systolic function is normal. The ejection fraction is >75%.
Stress Risk is low risk study, but the patient may be at moderate risk (risk of 1 - 3% CA or /year) due to pharmacologic agent used.
CT Chest, 03/26/2025:
IMPRESSION:
1. Clear lungs, without evidence of lobar pneumonia, pleural effusion, or significant pulmonary nodule.
2. No evidence of significant emphysema or interstitial fibrosis.
3. Moderate coronary arterial calcification. Please correlate with symptoms of and risk factors for coronary artery disease, with further workup as clinically appropriate.
4. Severe diffuse fatty infiltration of the liver.
Transthoracic Echocardiogram, 06/12/2025:
SUMMARY
1. Moderately reduced left ventricular systolic function with mid to apical akinesis and hyperdynamic basal segments. LVEF 39%.
2. LVOT gradient 60 mmHg at rest, 98 mmHg with Valsalva. Systolic anterior motion of the mitral valve.
3. Mild aortic stenosis.
4. Mild to moderate mitral regurgitation.
5. Overall findings are consistent with Takotsubo's cardiomyopathy though multivessel CAD cannot be excluded.
6. Compared to prior echocardiogram in February 2025, LVEF has decreased from 65-70% and there are new wall motion abnormalities as described above.
Physical Exam
Vital Signs/Labs
Vital Signs
Temp Pulse Resp BP Pulse Ox
36.5 C 82 15 118/80 99
06/15/25 10:53 06/15/25 10:53 06/15/25 10:53 06/15/25 08:32 06/15/25 10:53
06/14/25 06/15/25 06/16/25
11:59 11:59 11:59
Actual Weight 75.3 kg 75.1 kg
06/14/25 02:52
06/15/25 09:36
PT 14.2 Sec (11.4-14.6) 06/12/25 21:55
INR 1.09 06/12/25 21:55
APTT 82.2 Sec (23.4-35.0) H 06/15/25 03:44
Magnesium 2.2 mg/dl (1.6-2.3) 06/12/25 21:55
Triglycerides 107 mg/dl (10-149) 06/12/25 21:55
Triglycerides Cancelled 06/12/25 21:55
LDL Cholesterol, Calc 59 mg/dl 06/12/25 21:55
LDL Cholesterol, Calc Cancelled 06/12/25 21:55
VLDL Cholesterol, Calc 21 mg/dl (0-30) 06/12/25 21:55
VLDL Cholesterol, Calc Cancelled 06/12/25 21:55
HDL Cholesterol 77 mg/dl 06/12/25 21:55
HDL Cholesterol Cancelled 06/12/25 21:55
06/12/25
12:20
[id number]-[id number] Pept 477
LAB Results
06/12/25 06/12/25 06/12/25
14:16 21:56 22:36
Troponin I 2.210 H* Cancelled 1.660 H*
06/13/25 06/13/25
00:34 06:34
Troponin I Cancelled Cancelled
Physical Exam
Constitutional: No acute distress and Comfortable
EENT: Anicteric and Moist mucous membranes
Cardiovascular: Rhythm & rate is regular, Pedal edema is absent, JVD pressure is normal, S1S2 is normal and Murmur/rub/gallop absent
Respiratory: Respiratory effort normal, Lungs clear to auscul., Wheeze Absent, Crackles Absent and Rhonchi Absent
GI: Soft, Distention absent, Flat, Non tender and Normal bowel sounds
Neuro/Psych: AO x 3
Data Reviewed
-
Date of Service: June 15, 2025
Medical Decision Making: Reviewed Test Results, Independent Historian Assessment and Test Interpretation
EKG: Tracing Personally Visualized and interpreted and Report Reviewed by me
Echo: Report Reviewed by me
X-Ray/CT/US/MRI/NUC/PET: Image Personally Visualized and interpreted and Report Reviewed by me
Labs: Labs Reviewed by me
Old Records: Reviewed
--- NOTE | 2025-06-15 14:27 | ITS.CL.CATH ---
Food Service Representative - Catheterization
Cardiac Catheterization
Procedure Report:
CARDIAC CATHETERIZATION REPORT
Date of Procedure: 06/15/2025
Referring: Demarcus Zavaleta M.D.
INDICATION: Non-ST elevation myocardial infarction, new systolic cardiomyopathy.
PROCEDURE:
1. Left heart catheterization
2. Coronary angiography
3. Left ventriculography.
4. Successful IFR of the proximal LAD.
A total of 42 minutes of procedural/moderate sedation was utilized. An independent medical instrument technician was present to assist with and help manage the patient's level of consciousness and physiologic status.
ACCESS:
1. 6 American right radial artery using a modified Seldinger technique.
CATHETERS:
1. 5 American JL 3.5.
2. 5 American JR4.
3. 5 American angled pigtail.
4. 6 American EBU 3.5 guiding catheter.
HEMODYNAMIC DATA
Weight (kg): 74.8
AO (s/d/x, mmHg): 109/67/87
LV (s/x mmHg): 110/16 (A wave to 32)
AV gradient (x, mmHg): None.
LEFT VENTRICULOGRAPHY: Performed in an LUGO projection. Normal to very mildly dilated left ventricle with hypokinesis of the anterior and inferior basal segments to the mid ventricle. There is akinesis of the distal anterior, distal inferior and
apical segments consistent with Takotsubo cardiomyopathy with low normal systolic function. Left ventricular ejection fraction estimated at 45-50%. There is no mitral valve regurgitation. There is no aortic valve insufficiency. The aortic root
and visualized ascending and descending thoracic aorta appear normal.
CORONARY ANGIOGRAPHY
Dominance: Left.
Left Main: Normal size, trifurcating vessel. There is no coronary artery disease.
LAD: Normal size vessel giving rise to 1 severely angulated diagonal two thirds of the way down the ventricle before wrapping around the apex and supplying the distal inferior septum. There is a hazy, 40% lesion in the proximal LAD.
Ramus: Normal size vessel supplying the majority of the anterolateral wall. There are luminal irregularities.
Circumflex: Large size, dominant vessel giving rise to 2 obtuse marginals before terminating as a left posterior descending artery. There is no coronary artery disease.
RCA: Medium size, nondominant vessel. There is no coronary artery disease.
INTERVENTION(S)
1. Successful IFR of the hazy, 40% proximal LAD lesion demonstrating nonocclusive disease (IFR = 0.92).
Narrative:
The decision was made to perform physiologic testing. The diagnostic catheter was removed over a wire and exchanged for a(n) EBU 3.5 guiding catheter. The guiding catheter was advanced into the ascending aorta and seated in the left main coronary
artery. Additional heparin was given to obtain an ACT greater than 250 seconds. An iFR wire was zeroed outside of the body, then inserted into the guiding sheath. The wire was advanced and the transducer was normalized just outside of the guiding
catheter tip. The wire was advanced into the mid LAD. Three iFR measurements were taken. The lesion was determined to be nonocclusive (0.92). The IFR wire was withdrawn. Final angiography was performed demonstrating stable coronary anatomy.
Closure Device: Vascular band.
Radiation (mGy): 442.45
DAP (cm2.Gy): 36.6050
Fluoroscopy time (minutes): 6.2
CONCLUSIONS
1. Left dominant circulation with a nonocclusive, hazy 40% lesion in the proximal LAD (iFR = 0.92).
2. Normal sized to very mildly dilated left ventricle with hypokinesis of the anterior and inferior basal segments, normal function of the mid ventricle and akinesis of the distal anterior, inferior and apical singh consistent with Takotsubo
cardiomyopathy with low normal systolic function, LVEF estimated at 45-50%.
3. Mildly elevated filling pressures (LVEDP = 16 mmHg at 74.8 kg) with evidence of diastolic dysfunction (A wave to 32 mmHg).
RECOMMENDATIONS:
1. Expectant management after cardiac catheterization via right radial approach.
2. Limited weight bearing on the right wrist for one week.
3. Aggressive primary prevention with aspirin and high-dose, high potency statin. Goal LDL <55.
4. OMT/GDMT as hemodynamics will tolerate.
5. Patient is essentially euvolemic given her degree of LV dysfunction and low elevation in filling pressures.
Copy to: Demarcus Zavaleta M.D., Indigo Esteban D.O., Kaitlyn Sanders M.D.
Cruz Fernandez DO, FACC, FACP
[2025-06-15] MEDS: LIPITOR 20 MG PO (18:40)
--- NOTE | 2025-06-15 19:14 | PTCARENOTE ---
~3975-3243: Handoff report received from nightshift RN. Pt AOx4, NSR 80s on tele, SBP 110s, RA satting 99%. Pt denies pain at this time. Independent in room. NPO currently for CCL later today. All needs met at this time, call stone within reach.
~3317-0814: No change from previous assessment. VSS. Patient remains NPO for CCL.
~9648-9307: Patient taken to [facility] in stabld condition.
~1445: Patient back from CCL in stable condition. R radial TR band in place, no oozing or hematoma noted at this time. Patient educated on R wrist restrictions. All needs met at this time, call stone within reach.
~8435-7203: Air started to be removed from TR band, no oozing or hematoma noted at this time. VSS, patient resting in bed. All needs met at this time call stone within reach.
~8714-9313: TR band off around 1830. Site CDI, no oozing or hematoma noted. VSS. All needs met at this time, call stone within reach. Handoff report given to nighttshift RN.
[2025-06-15] MEDS: VITAMIN B1 100 MG PO (20:11)
[2025-06-15] MEDS: REMERON 15 MG PO (22:11)
--- NOTE | 2025-06-15 22:37 | PTCARENOTE ---
Received pt at change of shift resting in bed. SR on tele, HR 70's-80's. pt denies any CP or SOB at this time. Right radial site C/D/I, no bleeding or hematoma noted at this time. Educated pt on activity restrictions on R wrist, verbalizes
understanding. Encouraged pt to call RN with any questions/concerns. Call stone within reach.
[2025-06-16 01:56] VITALS: BP 120/81
[2025-06-16 01:58] VITALS: BMI 33.6
[2025-06-16 02:39] LABS: Hematocrit 36.5 % (37.0-47.0); Hemoglobin 12.0 g/dL (12.0-16.0); Mean Corp Hgb Conc. 32.9 g/dL (33.0-37.0); Mean Corpuscular Volume 98.9 fL (81.0-99.0); Platelet Count 239 10^3/uL (130-400); Red Cell Dist. Width 13.0 % (11.5-14.5)
[2025-06-16 02:50] LABS: APTT 25.5 Sec (23.4-35.0)
[2025-06-16 03:01] LABS: Blood Urea Nitrogen 17 mg/dl (7-17); Calcium 9.1 mg/dl (8.4-10.2); Carbon Dioxide 24 mmol/L (22-30); Chloride 108 mmol/L (98-107); Estimated Creatinine Clearance 42 ml/min; Glucose 89 mg/dl (70-99); Potassium 4.1 mmol/L (3.5-5.1); Sodium 137 mmol/L (135-145); eGFR 54.06
[2025-06-16 07:19] VITALS: BP 112/82
[2025-06-16 07:56] LABS: ACT-LR - POC > 397 Seconds (116-155)
[2025-06-16] MEDS: TOPROL XL 50 MG PO (08:27)
[2025-06-16] MEDS: LOW STRENGTH ASPIRIN 81 MG PO (08:27)
[2025-06-16] MEDS: THERAGRAN 1 TABLET PO (08:27)
[2025-06-16] MEDS: NORPRAMIN 50 MG PO (08:27)
[2025-06-16] MEDS: VITAMIN B1 100 MG PO (08:27)
[2025-06-16] MEDS: FOLVITE 1 MG PO (08:27)
--- NOTE | 2025-06-16 09:12 | W.PN.CD ---
Today's Communication / Plan
-
resume home meds: arb, mra, furosemide
home on baby aspirin and atorvastatin 20
f/u scheduled
Impression / Plan
-
Impression/Plan: 70F with chronic HFpEF, hypertension, PSVT, depression, and alcohol abuse who presented to the emergency department with a chief complaint of chest tightness, found to have an elevated troponin.
Primary customer relations specialist: Dr. Sanders
#TYPE II TN in the setting of Takotsubo cardiomyopathy
-Troponin peaked at 2.380 (presentation).
-Symptoms much improved.
-Continue aspirin, atorvastatin, metoprolol and add back valsartan
-Further medication adjustments will depend on these results.
#HFmEF--2/2 to Takotsubo, euvolemic on cath.
-Acute on chronic.
-Not grossly volume overloaded; denies PND, CXR does not show pulmonary edema.
-Echo shows new systolic cardiomyopathy with regional wall motion abnormality.
-GDMT as hemodynamics will tolerate:
-Diuretics: Home furosemide 40 mg daily on hold--resume
-Beta kalyn: Metoprolol succinate 50 mg daily.
-ACEI/ARB/ARNi: Home valsartan 160 mg daily on hold.---resume
-MRA: Home spironolactone 12.5 mg daily on hold---resume
-SGLT2i: Cost prohibitive.
-ICD: Not currently indicated.
#Alcohol abuse
-Chronic, recurrent.
-She has had intermittent sobriety but 'fell off the wagon' with the loss of her son over the summer.
-Currently having 1 quart of wine 2 days per week.
#PSVT
-Chronic, stable.
-Continue beta-kalyn.
#Essential hypertension
-Chronic, stable.
-Monitor with adjustments to GDMT.
#Coronary artery calcifications/Hyperlipidemia
-Seen on CT 03/2025.
-Total cholesterol = 157, LDL = 59, HDL = 77, Triglycerides = 107.
-Started on atorvastatin 20 mg daily this admission---continue
-Goal LDL < 55.
#Former smoker, continue cessation recommended.
#Grief, son committed suicide on Father's Day, 2024.
Subjective/Interval History:
she is feeling better, she is anxious for dc
DATA:
cATH 06/15/25:
CONCLUSIONS
1. Left dominant circulation with a nonocclusive, hazy 40% lesion in the proximal LAD (iFR = 0.92).
2. Normal sized to very mildly dilated left ventricle with hypokinesis of the anterior and inferior basal segments, normal function of the mid ventricle and akinesis of the distal anterior, inferior and apical singh consistent with Takotsubo
cardiomyopathy with low normal systolic function, LVEF estimated at 45-50%.
3. Mildly elevated filling pressures (LVEDP = 16 mmHg at 74.8 kg) with evidence of diastolic dysfunction (A wave to 32 mmHg).
RECOMMENDATIONS:
1. Expectant management after cardiac catheterization via right radial approach.
2. Limited weight bearing on the right wrist for one week.
3. Aggressive primary prevention with aspirin and high-dose, high potency statin. Goal LDL <55.
4. OMT/GDMT as hemodynamics will tolerate.
5. Patient is essentially euvolemic given her degree of LV dysfunction and low elevation in filling pressures.
Transthoracic Echocardiogram, 02/24/2025:
SUMMARY
1. Normal left ventricular size with normal systolic function; ejection fraction is 65-70% by visual assessment. Normal regional wall motion and wall thickness. Normal diastolic function. There is a mid-cavity gradient of 12mmHg which increases to
34 mmHg with Valsalva.
2. Mild aortic valve stenosis.
3. No significant change from the prior study on 06/30/24.
Lexiscan nuclear stress test, 03/03/2025:
CONCLUSION:
Negative ECG for ischemia given the pharmacological study.
Normal Lexiscan nuclear stress test.
Systolic function is normal. The ejection fraction is >75%.
Stress Risk is low risk study, but the patient may be at moderate risk (risk of 1 - 3% TN or /year) due to pharmacologic agent used.
CT Chest, 03/26/2025:
IMPRESSION:
1. Clear lungs, without evidence of lobar pneumonia, pleural effusion, or significant pulmonary nodule.
2. No evidence of significant emphysema or interstitial fibrosis.
3. Moderate coronary arterial calcification. Please correlate with symptoms of and risk factors for coronary artery disease, with further workup as clinically appropriate.
4. Severe diffuse fatty infiltration of the liver.
Transthoracic Echocardiogram, 06/12/2025:
SUMMARY
1. Moderately reduced left ventricular systolic function with mid to apical akinesis and hyperdynamic basal segments. LVEF 39%.
2. LVOT gradient 60 mmHg at rest, 98 mmHg with Valsalva. Systolic anterior motion of the mitral valve.
3. Mild aortic stenosis.
4. Mild to moderate mitral regurgitation.
5. Overall findings are consistent with Takotsubo's cardiomyopathy though multivessel CAD cannot be excluded.
6. Compared to prior echocardiogram in February 2025, LVEF has decreased from 65-70% and there are new wall motion abnormalities as described above.
Physical Exam
Vital Signs/Labs
Vital Signs
Temp Pulse Resp BP Pulse Ox
97.9 F 80 16 120/81 98
06/16/25 07:21 06/16/25 06:00 06/16/25 07:21 06/16/25 01:56 06/16/25 07:21
06/15/25 06/16/25 06/17/25
06:59 06:59 06:59
Actual Weight 165 lb 9.074 oz 166 lb 0.129 oz
06/16/25 02:22
06/16/25 02:22
PT 14.2 Sec (11.4-14.6) 06/12/25 21:55
INR 1.09 06/12/25 21:55
APTT 25.5 Sec (23.4-35.0) 06/16/25 02:22
Magnesium 2.2 mg/dl (1.6-2.3) 06/12/25 21:55
Triglycerides 107 mg/dl (10-149) 06/12/25 21:55
Triglycerides Cancelled 06/12/25 21:55
LDL Cholesterol, Calc 59 mg/dl 06/12/25 21:55
LDL Cholesterol, Calc Cancelled 06/12/25 21:55
VLDL Cholesterol, Calc 21 mg/dl (0-30) 06/12/25 21:55
VLDL Cholesterol, Calc Cancelled 06/12/25 21:55
HDL Cholesterol 77 mg/dl 06/12/25 21:55
HDL Cholesterol Cancelled 06/12/25 21:55
06/12/25
12:20
Tvb-[id number]-Zyiytecoant Pept 477
Physical Exam
Constitutional: No acute distress
Cardiovascular: Rhythm & rate is regular, Pedal edema is absent, JVD pressure is normal, Systolic murmur absent and Diastolic murmur absent
Respiratory: Respiratory effort normal, Lungs clear to auscul., Wheeze Absent and Crackles Absent
Neuro/Psych: AO x 3
Other: Cardiac Device Site (rra site well healed normal pusle)
Data Reviewed
-
Date of Service: June 16, 2025
Medical Decision Making: Review of Case with other Provider (tele sinus )
--- NOTE | 2025-06-16 09:43 | CM ---
Reviewed chart. Met with Mrs. Mcdaniel to review discharge plans. She states she is feeling better and maybe able to go home soon. Received call back from [facility] regarding places the can prescribe Naltrexone. Gave her information on [facility], [facility] and [facility]. Prior to admission she resides with her son, [id number] and grandson in a one story home without any steps to enter. Prior to admission she was independent with ambulating and adls. She does not have any DME in the
home. She was taking naltrexone for Alcohol Use Disorder but was having a hard time having a doctor to continue prescribing the medication. She has a prescription plan and uses [facility]. She states the drug was very helpful in the past.
Medical work-up in progress. The discharge plan is to return home with her family when medically stable.
--- NOTE | 2025-06-16 10:59 | W.PN.HOSP.TC ---
Addendum entered and electronically signed by Cliff Mar MD 06/16/25 13:02:
Correction-Type II NC in setting of Takotsubo cardiomyopathy
Addendum entered and electronically signed by Cliff Mar MD 06/16/25 11:05:
GDMT with toprol, valsartan, ALdactone. lasix, statin, asa.
Original Note:
Today's Communication/Plan
-
DC home
Outpatient cardiology follow-up
Goal-directed medical therapy
Assessment / Plan
Assessment / Plan
General: Well Developed, Well Nourished and No Apparent Distress
HEENT: NormoCephalic, Moist mucous membranes and Atraumatic
Respiratory: Clear
Cardiac: S1/S2 and Regular Rhythm; No Murmur or Rub
GI: Soft, Non Tender, Non Distended and Normal Bowel Sounds; No Organomegaly
Rectal: Deferred by Provider
Musculoskeletal: No Clubbing, No Cyanosis and No Edema
Skin: No Rash
Neuro: Nonfocal/grossly intact
# NSTEMI
- Peak Troponin 2.3
- EKG shows normal sinus rhythm, low voltage QRS
- Resolved chest pressure.
- Plan for cardiac cath today
- Aspirin
- Heparin drip
- Off of nitroglycerin drip
- Hemoglobin A1c 5.4
- LDL 59
- Echocardiogram shows EF of 39% with mid to apical akinesis and hyperdynamic basal segment, LVOT gradient of 60 mmHg at rest, 98 mmHg with Valsalva, mild to moderate MR, mild aortic stenosis
Echo finding consistent with Takotsubo cardiomyopathy though multivessel CAD cannot be excluded. Echo from February 2025 showed EF of 65 to 70%, wall motion abnormalities now are new
- S/p cardiac catheterization with no severe stenosis.
# Elevated creatinine
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
- Okay to resume Aldactone, valsartan
Acute on chronic heart failure now with reduced EF
-BNP 500. Echo with EF of 39%. Mild to moderate mitral regurgitation. Overall finding consistent with Takotsubo cardiomyopathy though multivessel CAD cannot be excluded.
-CXR without evidence of CHF or pulmonary edema
- Diuretics per cardiology-currently on none
- Restart home meds. Goal-directed medical therapy.
- Continue metoprolol
Essential hypertension
Alcohol use disorder
- Alcohol withdrawal protocol
- No signs of withdrawal
Anxiety/depression
- Continue desipramine, mirtazapine
GERD
History of gastric bypass
Former smoker
Osteoarthritis
DNR/DNI
DVT prophylaxis�SCDs
Cardiac diet
Discussed with cardiology okay for discharge home. Outpatient cardiology follow-up.
More than 30 minutes spent in discharge including
Final examination of the patient
Summarizing hospital stay
Instructions for continuing care to all relevant caregivers
Preparation of discharge records, prescriptions, and referral forms
Total time spent (in minutes): 53
Anticipated Discharge: Today
Subjective/Interval History
-
Date of Service: June 16, 2025
Feeling better.
Denies any chest pain shortness of breath
Objective Data
-
Labs:
Laboratory Results
06/16/25
02:22
WBC 6.7
Hgb 12.0
Hct 36.5 L
Plt Count 239
APTT 25.5
Sodium 137
Potassium 4.1
Chloride 108 H
Carbon Dioxide 24
BUN 17
Creatinine 1.1 H
Glucose 89
Calcium 9.1
Vital Signs:
Vital Signs
Temp Pulse Resp BP Pulse Ox
97.9 F 91 16 112/82 98
06/16/25 07:21 06/16/25 09:00 06/16/25 07:21 06/16/25 07:19 06/16/25 07:21
I&O
06/15/25 06/16/25 06/17/25
06:59 06:59 06:59
Intake Total 240 / 240
Balance 240 / 240
--- NOTE | 2025-06-16 11:01 | W.DCSUMMARY ---
Discharge Summary
Discharge Data
Date of Admission: 06/12/25
Date of Discharge: 06/16/25
-
Pending Results: No
Hospital Course
70-year-old female past medical history of hypertension, alcohol use disorder, depression, gastric bypass is presented with complaint of chest pressure. Patient elevated troponin and heparin drip was started. Patient was evaluated by cardiology.
Patient underwent cardiac catheterization with no severe stenosis and no intervention required. Heparin drip was discontinued. Patient was not grossly volume overloaded. Chest x-ray did not with overt pulmonary edema. Patient chest pressure
resolved. Echocardiogram shows EF of 39% with mid to apical akinesis and hyperdynamic basal segment, LVOT gradient of 60 mmHg at rest, 98 mmHg with Valsalva, mild to moderate MR, mild aortic stenosis Echo finding consistent with Takotsubo
cardiomyopathy though multivessel CAD cannot be excluded. Echo from February 2025 showed EF of 65 to 70%, wall motion abnormalities now are new. Patient was continued on goal-directed medical therapy with Aldactone, ARB, Lasix. Aspirin and statin
were started. Patient will be discharged home with outpatient cardiology follow-up.
Discharge Plan
-
Patient Disposition: Home (Routine Discharge)
Discharge Diagnosis/Procedures: Cardiac catheterization, Takotsubo Cardiomyopathy
Condition: Fair
Diet: 2 Gram Sodium and Restrict fluids to 48 oz
Additional Activity: Limited weight bearing on the right wrist for one week.
Blood Work: BMP in 7-10 days via primary doctor or cardiology
Specialty Instructions: Weigh Daily- Call MD for wt gain/loss 3 lbs overnight/5 lbs in 1 week
Stand Alone Forms: DC Instructions- Cath/EP Lab
Referrals:
Cruz Fernandez DO [Active, Cardiology] - 06/26/25 3:20 pm
Indigo Esteban DO [Family Provider, Family Practice] - in less than 1 week
Prescriptions:
New
atorvastatin 20 mg Tablet
20 mg PO QPM Qty: 30 0RF
aspirin 81 mg Tablet,Chewable
81 mg PO DAILY Qty: 30 0RF
Continued
metoprolol succinate [Toprol XL] 50 mg Tablet Extended Release 24 Hr
50 mg PO DAILY
therapeutic multivitamin Tablet
1 tab PO DAILY
mirtazapine 15 mg Tablet
15 mg PO HS
valsartan 160 mg Tablet
160 mg PO DAILY
Collagen Skin Renewal 30-833.3 mg Tablet
1 tab PO DAILY
furosemide 20 mg Tablet
40 mg PO DAILY Qty: 30 0RF
spironolactone 25 mg Tablet
12.5 mg PO DAILY
desipramine 50 mg Tablet
50 mg PO DAILY
Discharge Orders:
Discharge Patient (As Directed); Ordered 06/16/25
Ordered By: Cliff Mar
Care Plan Goals
Care Plan Goals:
Problem: Readiness for enhanced knowledge related to diagnosis and treatment plan
Goal: Understand your diagnosis and treatment plan needs, including medications if applicable.
Instructions: Know your diagnosis, underlying causes and treatment plan options, including medications if applicable. Consult with your health care team to learn about your diagnosis and treatment plan, including medications if applicable.
Discharge Date and Time
Print Language: BOLIVIAN
[2025-06-16 11:24] VITALS: BP 114/79
--- NOTE | 2025-06-16 11:44 | PN.CDI ---
CDI
- -
CDI:
Physician Documentation Request
Admit Date: 06/12/25 17:07
Dear Doctor,
Patient admitted for TX.
06/16 Cardiology PN: 'TYPE II TX in the setting of Takotsubo cardiomyopathy'
06/16 Hospitalist PN: 'NSTEMI - Peak Troponin 2.3'
Please clarify the following regarding the documented myocardial infarction:
Type 2 TX
NSTEMI
Other
Use of terms such as suspected, likely, concern for, or probable (associated with a specific diagnosis that is being evaluated, monitored, or treated as if it exists) are acceptable and can be coded in the inpatient setting, when documented at the
time of discharge.
Thank you,
Janae Mitchell RN, BSN
CDI Specialist
Available via [place] text
Please use your independent medical judgment in providing your response.
== END 2025-06-16 12:10 | disposition home or self-care (01) | DRG 280 ==
LOC: IVU 17:07
PROVIDERS: Emergency Medicine; Internal Medicine; Internal Medicine Cardiovascular Disease; Nurse Practitioner Family; ADMITTING PHYSICIAN Hospitalist; ATTENDING PHYSICIAN Hospitalist; CONSULT PHYSICIAN Student in an Organized Health Care Education/Training Program; EMERGENCY PHYSICIAN Emergency Medicine; FAMILY PHYSICIAN Family Medicine
PROC: B2151ZZ Fluoroscopy of Left Heart using Low Osmolar Contrast (ICD-10-PCS; 2025-06-15)
PROC: 4A033BC Measurement of Arterial Pressure, Coronary, Percutaneous Approach (ICD-10-PCS; 2025-06-15)
PROC: B2111ZZ Fluoroscopy of Multiple Coronary Arteries using Low Osmolar Contrast (ICD-10-PCS; 2025-06-15)
PROC: 4A023N7 Measurement of Cardiac Sampling and Pressure, Left Heart, Percutaneous Approach (ICD-10-PCS; 2025-06-15)
DX: I21.A1 Myocardial infarction type 2 (principal); I50.33 Acute on chronic diastolic (congestive) heart failure; I47.10 Supraventricular tachycardia, unspecified; I51.81 Takotsubo syndrome; N17.9 Acute kidney failure, unspecified; F32.A Depression, unspecified; I11.0 Hypertensive heart disease with heart failure; Z98.84 Bariatric surgery status; F10.20 Alcohol dependence, uncomplicated; K21.9 Gastro-esophageal reflux disease without esophagitis; Z87.891 Personal history of nicotine dependence; Z88.2 Allergy status to sulfonamides; Z88.1 Allergy status to other antibiotic agents; E78.00 Pure hypercholesterolemia, unspecified; E78.1 Pure hyperglyceridemia; F41.9 Anxiety disorder, unspecified; I25.10 Atherosclerotic heart disease of native coronary artery without angina pectoris; Z79.899 Other long term (current) drug therapy
CPT/HCPCS: 71045; 80048; 80053; 80061; 80306; 81003; 81015; 82010; 82077; 82977; 83036; 83735; 83880; 84100; 84484; 85025; 85027; 85610; 85730; 87502; 87811; 93005; 93306; 93458; 93799; 96365; 96366; 96367; 99152; 99153; 99285; C1769; Q9967

== ENCOUNTER → 2025-07-02 20:31 | Outpatient (REF) | payer MEDICARE, SELFPAY | LOC: PAVMRI 20:31 | PROVIDERS: ATTENDING PHYSICIAN Podiatrist Foot & Ankle Surgery | DX: S86.011A Strain of right Achilles tendon, initial encounter (principal) | CPT/HCPCS: 73721 ==